=== PATIENT | female | born 1990 | race Caucasian/White ===

== ENCOUNTER 2016-03-19 13:02 | Emergency (ER) | payer OTHER, MEDICAID ==
[2016-03-19] MEDS ORDERED: HYDROCODONE/ACETAMINOPHEN 5-325 MG TABLET PO ONE (13:49)
--- NOTE | 2016-03-19 14:01 | ER Document Report ---
ED Medical Screen (RME) - General Stated Complaint: FALL BACK PAIN Mode of Arrival: Ambulatory Information source: Patient Notes: 25 y/o F presents to ED c/o lower back and left hip pain s/p fall. Denies loc, extremity paresthesias or weakness. I have greeted and performed a rapid initial assessment of this patient. A comprehensive ED assessment and evaluation of the patient, analysis of test results and completion of the medical decision making process will be conducted by additional ED providers. TRAVEL OUTSIDE OF THE [place] IN LAST 30 DAYS: No - Related Data Allergies/Adverse Reactions: No Known Allergies Allergy (Verified 08/12/15 15:44) Past Medical History - Social History Frequency of alcohol use: Social Drug Abuse: None Renal/ Medical History: Denies: Hx Peritoneal Dialysis Psychiatric Medical History: Reports: Hx Bipolar Disorder, Hx Depression, Hx Schizophrenia Past Surgical History: Reports: Hx Section, Hx Oral Surgery - wisdom teeth - Immunizations Hx Diphtheria, Pertussis, Tetanus Vaccination: Yes Physical Exam - Vital signs Vitals: Temp Pulse Resp BP Pulse Ox 98.0 F 89 17 116/69 100 03/19/16 13:27 03/19/16 13:27 03/19/16 13:27 03/19/16 13:27 03/19/16 13:27 - General General appearance: Appears well, Alert In distress: None Course - Vital Signs Vital signs: Temp Pulse Resp BP Pulse Ox 98.0 F 89 17 116/69 100 03/19/16 13:27 03/19/16 13:27 03/19/16 13:27 03/19/16 13:27 03/19/16 13:27
[2016-03-19 14:27] LABS: APPEARANCE,URINE SLIGHTLY-CLOUDY; BILIRUBIN,URINE NEGATIVE (NEGATIVE); GLUCOSE, URINE NEGATIVE (NEGATIVE); KETONES,URINE NEGATIVE (NEGATIVE); LEUKOCYTE ESTERASE,URINE NEGATIVE (NEGATIVE); NITRITE,URINE NEGATIVE (NEGATIVE); PROTEIN,URINE NEGATIVE (NEGATIVE); URINE SPECIFIC GRAVITY 1.018; UROBILINOGEN,URINE NEGATIVE mg/dL (<2.0)
--- NOTE | 2016-03-19 15:14 | ER Document Report ---
ED Fall - General Chief Complaint: Back Injury Stated Complaint: FALL BACK PAIN Time seen by provider: 15:10 Mode of Arrival: Ambulatory Information source: Patient Notes: 25-year-old female presents to ED for complain of low back pain and left hip pain and rib pain due to a fall last night. She states she fell off the third step of a ladder at work last night. TRAVEL OUTSIDE OF THE [place] IN LAST 30 DAYS: No - HPI Occurred: Yesterday Where: Work Context: Fell from height - Fell off third step of a ladder Associated symptoms: None Location of injury/pain: Back, Hip, Other - Left ribs Quality of pain: Sharp Severity: Severe Pain Level: 5 - Related data Allergies/Adverse Reactions: No Known Allergies Allergy (Verified 08/12/15 15:44) Past Medical History - General Information source: Patient Last Menstrual Period: IUD - Social History Smoking Status: Current Every Day Smoker Cigarette use (# per day): Yes - one third pack per day Chew tobacco use (# tins/day): No Smoking Education Provided: Yes - less than 1 minute Frequency of alcohol use: Social Drug Abuse: None 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 Lives with: Family Family History: CAD, COPD, CVA, DM, Hyperlipidemia, Hypertension, Other - Depression Patient has suicidal ideation: No Patient has homicidal ideation: No - Past Medical History Cardiac Medical History: Reports: None Pulmonary Medical History: Reports: Hx Bronchitis EENT Medical History: Reports: None Neurological Medical History: Reports: None Endocrine Medical History: Reports: None Renal/ Medical History: Reports: None Malignancy Medical History: Reports: None GI Medical History: Reports: None Musculoskeltal Medical History: Reports None Skin Medical History: Reports None Psychiatric Medical History: Reports: Hx Bipolar Disorder, Hx Depression, Hx Schizophrenia Traumatic Medical History: Reports: None Infectious Medical History: Reports: None Past Surgical History: Reports: Hx Section, Hx Oral Surgery - wisdom teeth - Immunizations Hx Diphtheria, Pertussis, Tetanus Vaccination: Yes Review of Systems - Review of Systems Constitutional: No symptoms reported EENT: No symptoms reported Cardiovascular: No symptoms reported Respiratory: Other - Left posterior lateral rib tenderness and pain with movement Gastrointestinal: No symptoms reported Genitourinary: No symptoms reported Female Genitourinary: No symptoms reported Musculoskeletal: Back pain - From [place] down bilateral, Muscle pain Skin: No symptoms reported Hematologic/Lymphatic: No symptoms reported Neurological/Psychological: No symptoms reported Physical Exam - Vital signs Vitals: Temp Pulse Resp BP Pulse Ox 98.0 F 89 17 116/69 100 03/19/16 13:27 03/19/16 13:27 03/19/16 13:27 03/19/16 13:27 03/19/16 13:27 Interpretation: Normal - General General appearance: Appears well, Alert - HEENT Head: Normocephalic, Atraumatic Eyes: Normal Pupils: PERRL - Respiratory Respiratory status: No respiratory distress Chest status: Tender - Left lateral posterior rib pain, Pain on movement, Pain with cough, Pain with deep breathing Breath sounds: Normal Chest palpation: Normal - Cardiovascular Rhythm: Regular Heart sounds: Normal auscultation Murmur: No - Abdominal Inspection: Normal Distension: No distension Bowel sounds: Normal Tenderness: Nontender Organomegaly: No organomegaly - Back Back: Normal, Tender, Vertebra tenderness - Tenderness across the back left and right and vertebral from [place] down. No: Deformity/step-off, CVA tenderness , Scars, Scoliosis, Wounds, Other - Extremities General upper extremity: Normal inspection, Nontender, Normal color, Normal ROM , Normal temperature General lower extremity: Normal inspection, Nontender, Normal color, Normal ROM , Normal temperature, Normal weight bearing. No: Katie's sign - Neurological Neuro grossly intact: Yes Cognition: Normal Orientation: AAOx4 Jt Coma Scale Eye Opening: Spontaneous Jt Coma Scale Verbal: Oriented [place] Coma Scale Motor: Obeys Commands [place] Coma Scale Total: 15 Speech: Normal Motor strength normal: LUE, RUE, LLE, RLE Sensory: Normal - Psychological Associated symptoms: Normal affect, Normal mood - Skin Skin Temperature: Warm Skin Moisture: Dry Skin Color: Normal Course - Re-evaluation Re-evalutation: 03/19/16 22:11 X-rays results discussed with patient and written reports given to patient. Rib contusion precautions discussed with patient and patient instructed on use of incentive spirometry. Patient instructed to follow-up with primary doctor. Patient able to walk freely in the room. - Vital Signs Vital signs: Temp Pulse Resp BP Pulse Ox 97 F L 70 16 118/68 98 03/19/16 17:45 03/19/16 17:45 03/19/16 17:45 03/19/16 17:45 03/19/16 17:45 - Laboratory Laboratory results interpreted by me: 03/19/16 14:00 Urine Blood SMALL H - Diagnostic Test Radiology reviewed: Image reviewed, Reports reviewed Discharge - Discharge Clinical Impression: fall at work, Upper back pain Rib contusion Qualifiers: Encounter type: initial encounter Laterality: left Qualified Code(s): S20.212A - Contusion of left front wall of thorax, initial encounter Lower back pain Qualifiers: Chronicity: acute Back pain laterality: left Sciatica presence: without sciatica Qualified Code(s): M54.5 - Low back pain Condition: Stable Disposition: HOME, SELF-CARE Instructions: Upper Back Strain ([facility]), Stretching Exercises for the Back ([facility]) , Exercise Program for the Shoulder ([facility]), Family Physicians / Practices Additional Instructions: Rib Contusion You have been diagnosed as having bruised ribs. It will usually take a few weeks for these injured ribs to heal. You should cough or take a deep breath at least every hour or two to prevent lung complications. You should not engage in any strenuous physical activity until released by your physician. The usual rule is "if it hurts, don' t do it." Return if you develop any of the following: (1) Fever or chills. (2) Persistent cough, coughing up blood, or shortness of breath. (3) Increasing pain. (4) Weakness, lightheadedness, or fainting. LOW BACK PAIN: Three out of every four people will have an episode of disabling back pain during their lifetime. Most commonly the pain is due to straining of the muscles and ligaments in the low back. Usual treatment includes: (1) Rest on a firm surface. Avoid lying on your stomach. (2) Ice pack the painful area. After a few days, gentle heat may be used intermittently to relax the area, or ice packs can be continued. (3) Medication may be needed -- muscle relaxers and antiinflammatory medicines are commonly used. (4) As the back improves, exercises are prescribed to strengthen the back and abdominal muscles. Your doctor will advise you on the proper care for your back at each stage in your recovery. You may be better in a few days -- or healing may take several weeks. If new symptoms of a "herniated disc" (radiation of pain, numbness, or tingling down the back of the leg or weakness in the leg) occur, you should be re-examined. Further testing may be necessary. Ibuprofen Ibuprofen is an excellent, safe drug for pain control. In addition, it has potent antiinflammatory effects which are beneficial, especially in the treatment of injuries, arthritis, or tendonitis. It's best to take ibuprofen with food. Persons with ulcer disease or allergy to aspirin should notify their physician of this before taking ibuprofen. Take the medication exactly as prescribed. Don't take additional doses unless instructed to do so by your doctor. If you develop wheezing, shortness of breath, hives, faintness, stomach pain, vomiting, or dark black stools, return for re-evaluation at once. ORAL NARCOTIC MEDICATION: You have been given a prescription for pain control. This medication is a narcotic. It's best taken with food, as nausea can result if taken on an empty stomach. Don't operate machinery or drive within six hours of taking this medication. Do not combine this medicine with alcohol, or with any medication which can cause sedation (such as cold tablets or sleeping pills) unless you get permission from the physician. Narcotics tend to cause constipation. If possible, drink plenty of fluids and eat a diet high in fiber and fruits. Please be aware that prescription narcotics also have the potential for abuse. People become addicted to these medications because of the general sense of wellbeing that they induce. This feeling along with a significant reduction in tension, anxiety, and aggression provides a stimulating seductive quality to these drugs. Once your pain is under control, we encourage you to discard your unused narcotics. MUSCLE RELAXERS: Muscle relaxing medications are usually prescribed for acute muscle spasm or injury to the neck and back. They are often combined with antiinflammatory pain medication for increased relief. You may stop the muscle relaxer when the pain and stiffness have improved. Start the medication again if spasms recur. Muscle relaxers may cause drowsiness, especially with the first dose. Do not operate machinery or drive while under the effects of the medication. Most muscle relaxers last up to 24 hours. Do not combine the medication with alcohol. ICE PACKS: Apply ice packs frequently against the painful area. Many different schedules are recommended, such as "20 minutes on, 20 minutes off" or "one hour ice, two hours rest." If you need to work, you may need to go longer between ice treatments. You should plan to have the area ice packed AT LEAST one fourth of the time. The ice should be applied over the wrap, tape, or splint, or over a layer of cloth -- not directly against the skin. Some ice bags have a built-in cloth and can be put directly on the skin. WARM PACKS: After approximately two days, apply gentle heat (such as a heating pad or hot water bottle) for about 20 to 30 minutes about every two hours -- at least four times daily. Warmth and elevation will help you make a more rapid recovery , and will ease the pain considerably. Do not use HOT heat, and never apply heat for longer than 30 minutes. The continuous heat can invisibly damage skin and muscles -- even when no burn is seen on the surface. Damaged muscles can make you MORE sore. FOLLOW-UP CARE: If you have been referred to a physician for follow-up care, call the physician s office for an appointment as you were instructed or within the next two days. If you experience worsening or a significant change in your symptoms, notify the physician immediately or return to the Emergency Department at any time for re-evaluation. Prescriptions: Hydrocodone/Acetaminophen [[place] 5-325 mg Tablet] 1 tab PO Q6HP PRN #10 tablet PRN Reason: Cyclobenzaprine HCl [Flexeril 5 mg Tablet] 5 mg PO TID #10 tablet Forms: Special Work Note, Smoking Cessation Education, Return to Work
[2016-03-19 17:49] VITALS: BP 118/68
== END 2016-03-19 17:46 | disposition home or self-care (01) ==
LOC: ER 13:02
DX: S20.212A Contusion of left front wall of thorax, initial encounter (principal); W11.XXXA Fall on and from ladder, initial encounter; Y99.0 Civilian activity done for income or pay; M54.89 Other dorsalgia; M54.5 Low back pain; R07.81 Pleurodynia; F17.210 Nicotine dependence, cigarettes, uncomplicated; Z97.5 Presence of (intrauterine) contraceptive device; Z71.6 Tobacco abuse counseling
CPT/HCPCS: 72110; 81001; 81025; 99283

== ENCOUNTER 2016-08-20 15:23 | Emergency (ER) | payer MEDICAID, OTHER ==
--- NOTE | 2016-08-20 16:50 | ER Document Report ---
ED Medical Screen (RME) - General Chief Complaint: Leg Swelling Stated Complaint: NUMBNESS IN LEGS Time Seen by Provider: 08/20/16 16:48 TRAVEL OUTSIDE OF THE [place] IN LAST 30 DAYS: No - HPI Notes: 08/20/16 16:49 Patient coming in with numbness tingling bilateral lower extremity swelling bilateral extremities but intermittent coloration of the toes and fingers over the last few weeks - Related Data Allergies/Adverse Reactions: No Known Allergies Allergy (Verified 08/12/15 15:44) Past Medical History Pulmonary Medical History: Reports: Hx Bronchitis Renal/ Medical History: Denies: Hx Peritoneal Dialysis Psychiatric Medical History: Reports: Hx Bipolar Disorder, Hx Depression, Hx Schizophrenia Past Surgical History: Reports: Hx Section, Hx Oral Surgery - wisdom teeth - Immunizations Hx Diphtheria, Pertussis, Tetanus Vaccination: Yes Review of Systems - Review of Systems Musculoskeletal: Leg swelling Physical Exam - Vital signs Vitals: Temp Pulse Resp BP Pulse Ox 98.6 F 98 20 129/66 H 100 08/20/16 15:34 08/20/16 15:34 08/20/16 15:34 08/20/16 15:34 08/20/16 15:34 - Respiratory Respiratory status: No respiratory distress Chest status: Nontender Breath sounds: Normal Chest palpation: Normal Course - Vital Signs Vital signs: Temp Pulse Resp BP Pulse Ox 98.6 F 98 20 129/66 H 100 08/20/16 15:34 08/20/16 15:34 08/20/16 15:34 08/20/16 15:34 08/20/16 15:34
[2016-08-20 16:59] LABS: ABSOLUTE BASOPHILS # (AUTO) 0.1 10^3/uL (0.0-0.2); ABSOLUTE EOSINOPHILS # (AUTO) 0.2 10^3/uL (0.0-0.6); ABSOLUTE LYMPHOCYTES (AUTO) 3.5 10^3/uL (0.5-4.7); ABSOLUTE MONOCYTES (AUTO) 0.4 10^3/uL (0.1-1.4); ABSOLUTE NEUT (AUTO) 4.4 10^3/uL (1.7-8.2); EOSINOPHILS % (AUTO) 2.1 % (0-6); HEMATOCRIT 34.1 % (36.0-47.0); HEMOGLOBIN 10.8 g/dL (12.0-15.5); HGB HCT DIFFERENCE -1.7; LYMPHOCYTES % (AUTO) 40.7 % (13-45); MEAN CORPUSCULAR HEMOGLOBIN 21.8 pg (27.0-33.4); MEAN CORPUSCULAR HGB CONC 31.6 g/dL (32.0-36.0); MEAN CORPUSCULAR VOLUME 69 fl (80-97); RED BLOOD COUNT 4.95 10^6/uL (3.72-5.28); RED CELL DISTRIBUTION WIDTH 17.6 % (11.5-14.0); SEGMENTED NEUTROPHILS % (AUTO) 51.2 % (42-78); WHITE BLOOD COUNT 8.6 10^3/uL (4.0-10.5)
[2016-08-20 17:23] LABS: ALANINE AMINOTRANSFERASE 28 U/L (9-52); ALBUMIN 4.2 g/dL (3.5-5.0); ALKALINE PHOSPHATASE 81 U/L (38-126); ANION GAP 10 (5-19); ASPARTATE AMINO TRANSFERASE 14 U/L (14-36); BILIRUBIN,DIRECT 0.3 mg/dL (0.0-0.4); BILIRUBIN,TOTAL 0.6 mg/dL (0.2-1.3); BLOOD UREA NITROGEN 8 mg/dL (7-20); CALCIUM 9.8 mg/dL (8.4-10.2); CARBON DIOXIDE 24 mmol/L (22-30); CHLORIDE 109 mmol/L (98-107); GLUCOSE 101 mg/dL (75-110); LIPASE 67.3 U/L (23-300); POTASSIUM 3.9 mmol/L (3.6-5.0); SODIUM 143.1 mmol/L (137-145); TOTAL PROTEIN 7.8 g/dL (6.3-8.2)
[2016-08-20] MEDS ORDERED: OXYCODONE-ACETAMINOPHEN 5-325 MG TABLET PO ONE (17:34)
[2016-08-20] MEDS ORDERED: KETOROLAC TROMETHAMINE 60 MG/2 ML SDV IM ONE (17:34)
--- NOTE | 2016-08-20 17:40 | ER Document Report ---
ED General - General Chief Complaint: Leg Swelling Stated Complaint: NUMBNESS IN LEGS Time Seen by Provider: 08/20/16 16:48 Mode of Arrival: Ambulatory Information source: Patient Notes: This is a 25-year-old female history of bipolar affective disorder and anxiety who presents to the emergency room with back pain and spasms with lower extremity pain and burning. She states she has had back pain since giving a year ago but the burning started yesterday. She recently started on the new medicines for her bipolar. Systems: Patient denies any fever, saddle anesthesia, loss of bowel or bladder function, she denies urine retention. TRAVEL OUTSIDE OF THE [place] IN LAST 30 DAYS: No - HPI Onset: Last week Onset/Duration: Gradual Quality of pain: Dull Severity: Moderate Pain Level: 2 Associated symptoms: denies: Chills, Fever, Shortness of breath Exacerbated by: Movement Relieved by: Standing Similar symptoms previously: Yes Recently seen / treated by doctor: No - Related Data Allergies/Adverse Reactions: No Known Allergies Allergy (Verified 08/12/15 15:44) Past Medical History - General Information source: Patient - Social History Smoking Status: Current Every Day Smoker Cigarette use (# per day): Yes - Half pack per day Chew tobacco use (# tins/day): No Frequency of alcohol use: None Drug Abuse: None Lives with: Family Family History: CAD, COPD, CVA, DM, Hyperlipidemia, Hypertension, Other - Depression Patient has suicidal ideation: No Patient has homicidal ideation: No Pulmonary Medical History: Reports: Hx Bronchitis Renal/ Medical History: Denies: Hx Peritoneal Dialysis Psychiatric Medical History: Reports: Hx Bipolar Disorder, Hx Depression, Hx Schizophrenia Past Surgical History: Reports: Hx Section, Hx Oral Surgery - wisdom teeth - Immunizations Hx Diphtheria, Pertussis, Tetanus Vaccination: Yes Review of Systems - Review of Systems Constitutional: denies: Chills, Fever EENT: No symptoms reported Cardiovascular: No symptoms reported Gastrointestinal: No symptoms reported Genitourinary: No symptoms reported Female Genitourinary: No symptoms reported Musculoskeletal: See HPI Skin: No symptoms reported Hematologic/Lymphatic: No symptoms reported Neurological/Psychological: See HPI Physical Exam - Vital signs Vitals: Temp Pulse Resp BP Pulse Ox 98.6 F 98 20 129/66 H 100 08/20/16 15:34 08/20/16 15:34 08/20/16 15:34 08/20/16 15:34 08/20/16 15:34 Notes: Physical exam: GENERAL:-year-old female, alert and oriented 3, no acute distress HEAD: Atraumatic, normocephalic. EYES: Pupils equal round and reactive to light, extraocular movements intact, sclera anicteric, conjunctiva are normal. ENT: TMs normal, nares patent, oropharynx clear without exudates. Moist mucous membranes. NECK: Normal range of motion, supple without lymphadenopathy or JVD. LUNGS: Breath sounds clear to auscultation bilaterally and equal. No wheezes rales or rhonchi. HEART: Regular rate and rhythm without murmurs, rubs or gallops. ABDOMEN: Soft, normoactive bowel sounds. No tenderness to palpation. No guarding, no rebound. No masses appreciated. EXTREMITIES: Normal range of motion, no pitting or edema. No clubbing or cyanosis. Pulses 2+. Good femoral pulses. Distal extremities are pink with good capillary refill. She has tenderness to palpation of the feet NEUROLOGICAL: Cranial nerves II through XII grossly intact. Normal speech, lower extremities is strong and equal normal gait. PSYCH: Normal mood, normal affect. SKIN: Warm, Dry, normal turgor, no rashes or lesions noted. Bedside Ultrasound: Aorta Normal, good femoral blood flow Course - Vital Signs Vital signs: Temp Pulse Resp BP Pulse Ox 98.6 F 91 15 133/72 H 100 08/20/16 15:34 08/20/16 19:05 08/20/16 19:05 08/20/16 19:05 08/20/16 19:05 - Laboratory Result Diagrams: 08/20/16 16:54 08/20/16 16:54 Laboratory results interpreted by me: 08/20/16 08/20/16 16:54 16:54 Hgb 10.8 L Hct 34.1 L MCV 69 L MCH 21.8 L MCHC 31.6 L RDW 17.6 H Chloride 109 H - Diagnostic Test Radiology reviewed: Image reviewed, Reports reviewed - Spine shows no obvious bony injury Discharge - Discharge Clinical Impression: neuropathy Condition: Stable Disposition: HOME, SELF-CARE Instructions: Neuropathy ([facility]) Additional Instructions: Recommendations: Get a follow-up with Dr. Wolff this week. , Drink plenty of fluids, keep feet elevated when not up on your feet. Take ibuprofen every 6 hours for the next few days. Take the pain medicine as needed. Gabapentin is sometimes very useful for neuropathy. To the emergency room for worsening numbness or pain. Prescriptions: Gabapentin 100 mg PO Q8 #30 capsule Hydrocodone/Acetaminophen [[place] 5-325 Tablet] 1 each PO Q6H PRN #14 tablet PRN Reason: Forms: Return to Work Referrals: BENEDICTO WOLFF MD [Primary Care Provider] - Follow up in 3-5 days
--- NOTE | 2016-08-20 18:31 | RADIOLOGY REPORT (SQ) ---
EXAM DESCRIPTION: L SPINE WHOLE COMPLETED DATE/TIME: 08/20/2016 6:01 pm REASON FOR STUDY: back pain COMPARISON: 03/19/2016 NUMBER OF VIEWS: Five views including obliques. TECHNIQUE: AP, lateral, oblique, and sacral radiographic images acquired of the lumbar spine. LIMITATIONS: None. FINDINGS: MINERALIZATION: Normal. SEGMENTATION: Transitional vertebra. ALIGNMENT: Normal. VERTEBRAE: Maintained height. No fracture or worrisome bone lesion. DISCS: Preserved height. No significant osteophytes or end plate irregularity. POSTERIOR ELEMENTS: Pedicles and facets are intact. No pars defect or posterior arch defects. HARDWARE: None in the spine. PARASPINAL SOFT TISSUES: Normal. PELVIS: Intact as visualized. No fractures or worrisome bone lesions. SI joints intact. OTHER: No other significant finding. IMPRESSION: NORMAL 5 VIEW LUMBAR SPINE. TECHNICAL DOCUMENTATION: JOB ID: [id number] [employer]- All Rights Reserved
[2016-08-20] MEDS ORDERED: HYDROCODONE/ACETAMINOPHEN 5-325 MG 6 TAB/DSPK PO PRN (18:52)
[2016-08-20 19:14] VITALS: BP 133/72
== END 2016-08-20 19:11 | disposition home or self-care (01) ==
LOC: ER 15:23
DX: G62.9 Polyneuropathy, unspecified (principal); M54.9 Dorsalgia, unspecified; R25.2 Cramp and spasm; R20.0 Anesthesia of skin; M79.606 Pain in leg, unspecified; F31.9 Bipolar disorder, unspecified; F17.210 Nicotine dependence, cigarettes, uncomplicated
CPT/HCPCS: 99283; 96372; 36415; 83690; 85025; 80053; 72110; J1885

== ENCOUNTER 2016-08-29 23:29 | Emergency (ER) | payer MEDICAID | END 2016-08-30 00:30 | disposition left against medical advice (07) | LOC: ER 23:29 | DX: Z53.21 Procedure and treatment not carried out due to patient leaving prior to being seen by health care provider (principal) ==

== ENCOUNTER 2016-08-31 17:35 | Emergency (ER) | payer MEDICAID ==
--- NOTE | 2016-08-31 18:36 | ER Document Report ---
ED Neuro Symptoms/Deficit - General Chief Complaint: Numbness Stated Complaint: LEG PAIN/SWELLING/NUMBNESS Time Seen by Provider: 08/31/16 18:27 Notes: This patient has been experiencing numbness and pain in her fingers and hands and in both lower legs from the knees down for about a month. She seen her private doctor, Dr. Delgado, and he has scheduled her for an appointment to see a neurologist on Sunday. Patient is choosing to use a cane to walk because she says her legs feel weak and wobbly, like Jell-O. Patient does not look ill. TRAVEL OUTSIDE OF THE [place] IN LAST 30 DAYS: No - Related Data Allergies/Adverse Reactions: No Known Allergies Allergy (Verified 08/31/16 17:38) Past Medical History - Social History Family History: CAD, COPD, CVA, DM, Hyperlipidemia, Hypertension, Other - Depression Patient has suicidal ideation: No Patient has homicidal ideation: No Pulmonary Medical History: Reports: Hx Bronchitis Renal/ Medical History: Denies: Hx Peritoneal Dialysis Psychiatric Medical History: Reports: Hx Bipolar Disorder, Hx Depression, Hx Schizophrenia Past Surgical History: Reports: Hx Section, Hx Oral Surgery - wisdom teeth - Immunizations Hx Diphtheria, Pertussis, Tetanus Vaccination: Yes Physical Exam - Vital signs Vitals: Temp Pulse Resp BP Pulse Ox 98.8 F 107 H 14 140/88 H 98 08/31/16 17:39 08/31/16 17:39 08/31/16 17:39 08/31/16 17:39 08/31/16 17:39 Course - Vital Signs Vital signs: Temp Pulse Resp BP Pulse Ox 98.8 F 107 H 14 140/88 H 98 08/31/16 17:39 08/31/16 17:39 08/31/16 17:39 08/31/16 17:39 08/31/16 17:39
[2016-08-31 19:13] LABS: ABSOLUTE BASOPHILS # (AUTO) 0.1 10^3/uL (0.0-0.2); ABSOLUTE EOSINOPHILS # (AUTO) 0.2 10^3/uL (0.0-0.6); ABSOLUTE LYMPHOCYTES (AUTO) 2.9 10^3/uL (0.5-4.7); ABSOLUTE MONOCYTES (AUTO) 0.5 10^3/uL (0.1-1.4); BASOPHILS % (AUTO) 0.7 % (0-2); HEMATOCRIT 35.1 % (36.0-47.0); HEMOGLOBIN 10.6 g/dL (12.0-15.5); HGB HCT DIFFERENCE -3.3; LYMPHOCYTES % (AUTO) 33.6 % (13-45); MEAN CORPUSCULAR HEMOGLOBIN 21.6 pg (27.0-33.4); MEAN CORPUSCULAR HGB CONC 30.3 g/dL (32.0-36.0); MEAN CORPUSCULAR VOLUME 72 fl (80-97); MONOCYTES % (AUTO) 5.9 % (3-13); RED BLOOD COUNT 4.91 10^6/uL (3.72-5.28); RED CELL DISTRIBUTION WIDTH 17.6 % (11.5-14.0); SEGMENTED NEUTROPHILS % (AUTO) 57.8 % (42-78); WHITE BLOOD COUNT 8.7 10^3/uL (4.0-10.5)
[2016-08-31 19:32] LABS: ALANINE AMINOTRANSFERASE 27 U/L (9-52); ALKALINE PHOSPHATASE 74 U/L (38-126); ANION GAP 12 (5-19); ASPARTATE AMINO TRANSFERASE 17 U/L (14-36); BILIRUBIN,DIRECT 0.4 mg/dL (0.0-0.4); BILIRUBIN,TOTAL 0.5 mg/dL (0.2-1.3); BLOOD UREA NITROGEN 8 mg/dL (7-20); CARBON DIOXIDE 22 mmol/L (22-30); CHLORIDE 110 mmol/L (98-107); CREATININE RESULT 0.68 mg/dL (0.52-1.25); GLUCOSE 86 mg/dL (75-110); POTASSIUM 4.1 mmol/L (3.6-5.0); SODIUM 144.3 mmol/L (137-145); TOTAL PROTEIN 7.2 g/dL (6.3-8.2)
[2016-08-31 19:35] LABS: APPEARANCE,URINE TURBID; BILIRUBIN,URINE NEGATIVE (NEGATIVE); GLUCOSE, URINE NEGATIVE (NEGATIVE); KETONES,URINE NEGATIVE (NEGATIVE); LEUKOCYTE ESTERASE,URINE SMALL (NEGATIVE); NITRITE,URINE NEGATIVE (NEGATIVE); PROTEIN,URINE 30 mg/dL (NEGATIVE); URINE SPECIFIC GRAVITY 1.032; UROBILINOGEN,URINE NEGATIVE mg/dL (<2.0)
--- NOTE | 2016-08-31 22:13 | ER Document Report ---
ED General - General Mode of Arrival: Ambulatory Information source: Patient TRAVEL OUTSIDE OF THE [place] IN LAST 30 DAYS: No - HPI Onset: Other - Refer to HPI notes Similar symptoms previously: Yes Recently seen / treated by doctor: Yes <ANNI ARMSTRONG - Last Filed: 08/31/16 22:46> <RYLEY JI - Last Filed: 08/31/16 23:26> - General Chief Complaint: Numbness Stated Complaint: LEG PAIN/SWELLING/NUMBNESS Time Seen by Provider: 08/31/16 18:27 Notes: Patient is a 25 year old female presenting to the emergency department for numbness and tingling in her lower and upper extremities. Patient states this has been present for about 1 month. Patient has been evaluated for this at [facility] in the past and was recently started on 100 mg gabapentin on 08/20/2016; patient followed up with her primary care physician who prescribed her 300 mg gabapentin x3 per day. Patient has been on this dose for about 1 week. Patient also has a history of anxiety, bipolar disorder, and she smokes cigarettes. Patient has an appointment with neurology on Sunday. Patient has no known allergies. (ANNI ARMSTRONG) - Related Data Allergies/Adverse Reactions: No Known Allergies Allergy (Verified 08/31/16 17:38) Past Medical History - General Information source: Patient - Social History Smoking Status: Current Every Day Smoker Chew tobacco use (# tins/day): No Frequency of alcohol use: Occasional Drug Abuse: Marijuana Family History: CAD, COPD, CVA, DM, Hyperlipidemia, Hypertension, Other - Depression Patient has suicidal ideation: No Patient has homicidal ideation: No Pulmonary Medical History: Reports: Hx Bronchitis Psychiatric Medical History: Reports: Hx Anxiety, Hx Bipolar Disorder, Hx Depression, Hx Schizophrenia Past Surgical History: Reports: Hx Section - x1, Hx Oral Surgery - wisdom teeth - Immunizations Hx Diphtheria, Pertussis, Tetanus Vaccination: Yes <ANNI ARMSTRONG - Last Filed: 08/31/16 22:46> Review of Systems - Review of Systems Constitutional: No symptoms reported EENT: No symptoms reported Cardiovascular: No symptoms reported Respiratory: No symptoms reported Gastrointestinal: No symptoms reported Genitourinary: No symptoms reported Female Genitourinary: No symptoms reported Musculoskeletal: No symptoms reported Skin: No symptoms reported Hematologic/Lymphatic: No symptoms reported Neurological/Psychological: See HPI, Numbness, Tingling -: Yes All other systems reviewed and negative <ANNI ARMSTRONG - Last Filed: 08/31/16 22:46> Physical Exam - Vital signs Interpretation: Normal <ANNI ARMSTRONG - Last Filed: 08/31/16 22:46> <RYLEY JI - Last Filed: 08/31/16 23:26> - Vital signs Vitals: Temp Pulse Resp BP Pulse Ox 98.8 F 107 H 14 140/88 H 98 08/31/16 17:39 08/31/16 17:39 08/31/16 17:39 08/31/16 17:39 08/31/16 17:39 - Notes Notes: GENERAL: Alert, interacts well. No acute distress. HEAD: Normocephalic, atraumatic. EYES: Pupils equal, round, and reactive to light. Extraocular movements intact. ENT: Oral mucosa moist, tongue midline. NECK: Full range of motion. Supple. Trachea midline. LUNGS: Clear to auscultation bilaterally, no wheezes, rales, or rhonchi. No respiratory distress. HEART: Regular rate and rhythm. No murmurs, gallops, or rubs. ABDOMEN: Soft, non-tender. Non-distended. Bowel sounds present in all 4 quadrants. EXTREMITIES: Moves all 4 extremities spontaneously. No edema. NEUROLOGICAL: Alert and oriented x3. Normal speech. PSYCH: Normal affect, normal mood. SKIN: Warm, dry, normal turgor. No rashes or lesions noted. (ANNI ARMSTRONG) Course - Laboratory Result Diagrams: 08/31/16 18:45 08/31/16 18:45 <JOSE ARMSTRONGINE - Last Filed: 08/31/16 22:46> - Laboratory Result Diagrams: 08/31/16 18:45 08/31/16 18:45 <RYLEY JI - Last Filed: 08/31/16 23:26> - Re-evaluation Re-evalutation: 08/31/16 23:22 First clean-catch urine had 58 epithelial cells, there were WBCs with clumps. This was repeated as the cath urine which is clean with no suggestion of infection. (RYLEY JI) - Vital Signs Vital signs: Temp Pulse Resp BP Pulse Ox 98.8 F 99 20 119/79 99 08/31/16 17:39 08/31/16 21:01 08/31/16 21:01 08/31/16 21:01 08/31/16 21:01 - Laboratory Laboratory results interpreted by me: 08/31/16 08/31/16 08/31/16 18:45 18:45 18:45 Hgb 10.6 L Hct 35.1 L MCV 72 L MCH 21.6 L MCHC 30.3 L RDW 17.6 H Chloride 110 H Urine Protein 30 H Urine Blood SMALL H Ur Leukocyte Esterase SMALL H 08/31/16 22:45 Hgb Hct MCV MCH MCHC RDW Chloride Urine Protein Urine Blood SMALL H Ur Leukocyte Esterase Discharge <ANNI ARMSTRONG - Last Filed: 08/31/16 22:46> <RYLEY JI - Last Filed: 08/31/16 23:26> - Discharge Clinical Impression: Paresthesias Condition: Stable Disposition: HOME, SELF-CARE Additional Instructions: Increase your gabapentin to 300 mg 4 times daily for the next week. Follow-up with Dr. Wolff tomorrow for any pain medication prescriptions you might need. Be sure to keep your appointment with the neurologist next week. Referrals: BENEDICTO WOLFF MD [Primary Care Provider] - Follow up tomorrow Scribe Attestation: 08/31/16 23:26 I personally performed the services described in the documentation, reviewed and edited the documentation which was dictated to the scribe in my presence, and it accurately records my words and actions. (RYLEY JI) Scribe Documentation - Scribe Written by Dejuan:: Dejuan Castellano 08/31/2016 22:55 acting as scribe for :: Daniel <ANNI ARMSTRONG - Last Filed: 08/31/16 22:46>
[2016-08-31 23:03] LABS: APPEARANCE,URINE CLEAR; BILIRUBIN,URINE NEGATIVE (NEGATIVE); GLUCOSE, URINE NEGATIVE (NEGATIVE); KETONES,URINE NEGATIVE (NEGATIVE); LEUKOCYTE ESTERASE,URINE NEGATIVE (NEGATIVE); NITRITE,URINE NEGATIVE (NEGATIVE); PROTEIN,URINE NEGATIVE (NEGATIVE); URINE SPECIFIC GRAVITY 1.028; UROBILINOGEN,URINE NEGATIVE mg/dL (<2.0)
[2016-08-31] MEDS ORDERED: HYDROCODONE/ACETAMINOPHEN 5-325 MG 6 TAB/DSPK PO PRN (23:27)
[2016-08-31 23:51] VITALS: BP 127/69
== END 2016-08-31 23:51 | disposition home or self-care (01) ==
LOC: ER 17:35
DX: R20.0 Anesthesia of skin (principal); M79.606 Pain in leg, unspecified; M79.89 Other specified soft tissue disorders; F41.9 Anxiety disorder, unspecified; F31.9 Bipolar disorder, unspecified; F17.210 Nicotine dependence, cigarettes, uncomplicated
CPT/HCPCS: 36415; 51701; 80053; 81001; 84703; 85025; 99284

== ENCOUNTER → 2016-09-05 | Outpatient (CLI) | payer MEDICAID ==
[2016-09-05 11:15] LABS: HEMATOCRIT 34.6 % (36.0-47.0); HGB HCT DIFFERENCE -1.6; MEAN CORPUSCULAR HEMOGLOBIN 22.2 pg (27.0-33.4); MEAN CORPUSCULAR HGB CONC 31.9 g/dL (32.0-36.0); MEAN CORPUSCULAR VOLUME 70 fl (80-97); RED BLOOD COUNT 4.96 10^6/uL (3.72-5.28); RED CELL DISTRIBUTION WIDTH 17.4 % (11.5-14.0)
[2016-09-05 11:36] LABS: ALANINE AMINOTRANSFERASE 21 U/L (9-52); ALBUMIN 4.4 g/dL (3.5-5.0); ALKALINE PHOSPHATASE 74 U/L (38-126); ANION GAP 13 (5-19); ASPARTATE AMINO TRANSFERASE 15 U/L (14-36); BILIRUBIN,DIRECT 0.3 mg/dL (0.0-0.4); BILIRUBIN,TOTAL 0.6 mg/dL (0.2-1.3); BLOOD UREA NITROGEN 9 mg/dL (7-20); CALCIUM 9.1 mg/dL (8.4-10.2); CARBON DIOXIDE 21 mmol/L (22-30); CHLORIDE 107 mmol/L (98-107); CREATININE RESULT 0.69 mg/dL (0.52-1.25); GLUCOSE 87 mg/dL (75-110); POTASSIUM 4.1 mmol/L (3.6-5.0); TOTAL PROTEIN 7.6 g/dL (6.3-8.2)
[2016-09-05 11:45] LABS: FREE T3 3.98 pg/mL (2.77-5.27)
[2016-09-05 11:59] LABS: THYROID STIMULATING HORMONE 1.2 uIU/mL (0.47-4.68)
--- NOTE | 2016-09-13 14:16 | ER Document Report ---
ED Medical Screen (RME) - General Notes: This patient has been experiencing numbness and pain in her fingers and hands and in both lower legs from the knees down for about a month. She seen her private doctor, Dr. Delgado, and he has scheduled her for an appointment to see a neurologist on Sunday. Patient is choosing to use a cane to walk because she says her legs feel weak and wobbly, like Jell-O. Patient does not look ill. TRAVEL OUTSIDE OF THE [place] IN LAST 30 DAYS: No - Related Data Allergies/Adverse Reactions: No Known Allergies Allergy (Verified 08/31/16 17:38) Past Medical History Pulmonary Medical History: Reports: Hx Bronchitis Renal/ Medical History: Denies: Hx Peritoneal Dialysis Psychiatric Medical History: Reports: Hx Anxiety, Hx Bipolar Disorder, Hx Depression, Hx Schizophrenia Past Surgical History: Reports: Hx Section - x1, Hx Oral Surgery - wisdom teeth - Immunizations Hx Diphtheria, Pertussis, Tetanus Vaccination: Yes Course - Laboratory Result Diagrams: 09/05/16 10:30 09/05/16 10:30 Laboratory results interpreted by me: 09/05/16 09/05/16 10:30 10:30 Hgb 11.0 L Hct 34.6 L MCV 70 L MCH 22.2 L MCHC 31.9 L RDW 17.4 H Carbon Dioxide 21 L
== END ==
LOC: OD 10:06
PROVIDERS: ATTEND Specialist
DX: G62.9 Polyneuropathy, unspecified (principal); R60.1 Generalized edema
CPT/HCPCS: 36415; 80053; 84439; 84443; 84481; 85027

== ENCOUNTER 2016-09-18 14:11 | Emergency (ER) | payer MEDICAID ==
--- NOTE | 2016-09-18 15:03 | ER Document Report ---
ED Medical Screen (RME) - General Chief Complaint: Swelling of Lower Extremity Stated Complaint: BILATERAL LEG PAIN Time Seen by Provider: 09/18/16 14:59 Mode of Arrival: Wheelchair Information source: Patient TRAVEL OUTSIDE OF THE [place] IN LAST 30 DAYS: No - HPI Patient complains to provider of: bilateral leg pain Onset: Other - pt. states she has had the feeling of "knives sticking into her legs " for the past 3 months - Related Data Allergies/Adverse Reactions: No Known Allergies Allergy (Verified 09/18/16 14:19) Past Medical History - Social History Chew tobacco use (# tins/day): No Pulmonary Medical History: Reports: Hx Bronchitis Renal/ Medical History: Denies: Hx Peritoneal Dialysis Psychiatric Medical History: Reports: Hx Anxiety, Hx Bipolar Disorder, Hx Depression, Hx Schizophrenia Past Surgical History: Reports: Hx Section - x1, Hx Oral Surgery - wisdom teeth - Immunizations Hx Diphtheria, Pertussis, Tetanus Vaccination: Yes Physical Exam - Vital signs Vitals: Temp Pulse Resp BP Pulse Ox 98.2 F 101 H 16 132/65 H 100 09/18/16 14:21 09/18/16 14:21 09/18/16 14:21 09/18/16 14:21 09/18/16 14:21 Course - Vital Signs Vital signs: Temp Pulse Resp BP Pulse Ox 98.2 F 101 H 16 132/65 H 100 09/18/16 14:21 09/18/16 14:21 09/18/16 14:21 09/18/16 14:21 09/18/16 14:21
[2016-09-18 15:33] LABS: ABSOLUTE BASOPHILS # (AUTO) 0.1 10^3/uL (0.0-0.2); ABSOLUTE EOSINOPHILS # (AUTO) 0.3 10^3/uL (0.0-0.6); ABSOLUTE LYMPHOCYTES (AUTO) 2.2 10^3/uL (0.5-4.7); ABSOLUTE MONOCYTES (AUTO) 0.6 10^3/uL (0.1-1.4); ABSOLUTE NEUT (AUTO) 5.4 10^3/uL (1.7-8.2); BASOPHILS % (AUTO) 0.9 % (0-2); HEMATOCRIT 34.6 % (36.0-47.0); HEMOGLOBIN 11.1 g/dL (12.0-15.5); HGB HCT DIFFERENCE -1.3; LYMPHOCYTES % (AUTO) 26.2 % (13-45); MEAN CORPUSCULAR HEMOGLOBIN 22.8 pg (27.0-33.4); MEAN CORPUSCULAR HGB CONC 32.1 g/dL (32.0-36.0); MEAN CORPUSCULAR VOLUME 71 fl (80-97); MONOCYTES % (AUTO) 7.1 % (3-13); RED BLOOD COUNT 4.87 10^6/uL (3.72-5.28); RED CELL DISTRIBUTION WIDTH 17.3 % (11.5-14.0); SEGMENTED NEUTROPHILS % (AUTO) 62.8 % (42-78); WHITE BLOOD COUNT 8.5 10^3/uL (4.0-10.5)
[2016-09-18 15:51] LABS: ALANINE AMINOTRANSFERASE 23 U/L (9-52); ALKALINE PHOSPHATASE 90 U/L (38-126); ANION GAP 12 (5-19); ASPARTATE AMINO TRANSFERASE 13 U/L (14-36); BILIRUBIN,DIRECT 0.3 mg/dL (0.0-0.4); BILIRUBIN,TOTAL 0.4 mg/dL (0.2-1.3); BLOOD UREA NITROGEN 9 mg/dL (7-20); CARBON DIOXIDE 21 mmol/L (22-30); CHLORIDE 110 mmol/L (98-107); CREATININE RESULT 0.67 mg/dL (0.52-1.25); GLUCOSE 93 mg/dL (75-110); POTASSIUM 4.1 mmol/L (3.6-5.0); SODIUM 142.6 mmol/L (137-145); TOTAL PROTEIN 7.3 g/dL (6.3-8.2)
[2016-09-18 16:08] LABS: APPEARANCE,URINE SLIGHTLY-CLOUDY; BILIRUBIN,URINE NEGATIVE (NEGATIVE); GLUCOSE, URINE NEGATIVE (NEGATIVE); KETONES,URINE NEGATIVE (NEGATIVE); LEUKOCYTE ESTERASE,URINE NEGATIVE (NEGATIVE); NITRITE,URINE NEGATIVE (NEGATIVE); PROTEIN,URINE NEGATIVE (NEGATIVE); URINE SPECIFIC GRAVITY 1.027; UROBILINOGEN,URINE NEGATIVE mg/dL (<2.0)
[2016-09-18] MEDS ORDERED: METHYLPREDNISOLONE INJ 125 MG/2 ML SDV IM ONE (16:52)
--- NOTE | 2016-09-18 17:49 | ER Document Report ---
ED General - General Chief Complaint: Swelling of Lower Extremity Stated Complaint: BILATERAL LEG PAIN Time Seen by Provider: 09/18/16 14:59 Mode of Arrival: Wheelchair Notes: Patient is here complaining of pain and swelling of both legs. Says that the swelling and pain makes it difficult for her to walk. Says that she has seen her primary care doctor, Dr. Wolff, and he referred her to a neurologist (Dr. Aragon). Neither of them can find anything wrong with her legs. This is her fifth visit to this emergency department in the past month for numbness or pain in her legs. She is also been seen here for psychiatric evaluation. Denies running any fevers. No known injury to either leg. Denies being on any current medications. TRAVEL OUTSIDE OF THE [place] IN LAST 30 DAYS: No - Related Data Allergies/Adverse Reactions: No Known Allergies Allergy (Verified 09/18/16 14:19) Past Medical History - General Information source: Patient - Social History Smoking Status: Current Every Day Smoker Chew tobacco use (# tins/day): No Family History: CAD, COPD, CVA, DM, Hyperlipidemia, Hypertension, Other - Depression Pulmonary Medical History: Reports: Hx Bronchitis Psychiatric Medical History: Reports: Hx Anxiety, Hx Bipolar Disorder, Hx Depression, Hx Schizophrenia Past Surgical History: Reports: Hx Section - x1, Hx Oral Surgery - wisdom teeth - Immunizations Hx Diphtheria, Pertussis, Tetanus Vaccination: Yes Review of Systems - Review of Systems Notes: REVIEW OF SYSTEMS: CONSTITUTIONAL : Denies fever. EENT: Denies eye, ear, nose or mouth or throat pain or other symptoms. CARDIOVASCULAR: Denies chest pain. RESPIRATORY: Denies cough, chest congestion, or shortness of breath. GASTROINTESTINAL: Denies abdominal pain or nausea, vomiting, or diarrhea. GENITOURINARY: Denies difficulty or painful urinating, urinary frequency, blood in urine. MUSCULOSKELETAL: See HPI. SKIN: Denies rash or skin lesions. NEUROLOGICAL: Denies LOC or altered mental status. Denies headache. Denies sensory loss or motor deficits. ALL OTHER SYSTEMS REVIEWED AND NEGATIVE. Physical Exam - Vital signs Vitals: Temp Pulse Resp BP Pulse Ox 98.2 F 101 H 16 132/65 H 100 09/18/16 14:21 09/18/16 14:21 09/18/16 14:21 09/18/16 14:21 09/18/16 14:21 Interpretation: Normal - Notes Notes: PHYSICAL EXAMINATION: GENERAL: Well-appearing, in no acute distress. Appears to be in pain to move her legs to get up on the stretcher. Afebrile. HEAD: Atraumatic, normocephalic. EYES: Pupils equal round and reactive to light, extraocular movements intact. NECK: Normal range of motion, supple. LUNGS: Breath sounds clear and equal bilaterally. HEART: Regular rate and rhythm without murmurs. ABDOMEN: Soft, nontender. No guarding or rebound. BACK: No tenderness throughout entire back. EXTREMITIES: Normal range of motion without pain. Negative Homans bilaterally. NEUROLOGICAL: Normal speech, normal gait. Normal sensory, motor, and reflex exams. Awake, alert, and oriented x3. Cranial nerves normal. PSYCH: Normal mood, normal affect. Anxious. SKIN: Warm, dry, no rashes. Course - Re-evaluation Re-evalutation: 09/18/16 20:23 I advised the patient that I can think of nothing further to do for her leg pains. Her workup here this evening is all normal. It has been that way on all of her previous visits, as well. I have advised her to follow-up with her primary care provider. - Vital Signs Vital signs: Temp Pulse Resp BP Pulse Ox 99.0 F 86 16 118/68 98 09/18/16 18:07 09/18/16 18:07 09/18/16 18:07 09/18/16 18:07 09/18/16 18:07 - Laboratory Result Diagrams: 09/18/16 15:21 09/18/16 15:21 Laboratory results interpreted by me: 09/18/16 09/18/16 09/18/16 15:21 15:21 15:21 Hgb 11.1 L Hct 34.6 L MCV 71 L MCH 22.8 L RDW 17.3 H Chloride 110 H Carbon Dioxide 21 L AST 13 L Urine Blood MODERATE H Discharge - Discharge Clinical Impression: Bilateral leg pain Condition: Stable Disposition: HOME, SELF-CARE Additional Instructions: Leg Pain, Nonspecific We did not find an obvious cause for your leg pain. There's no sign of blood clot, infection, or other serious disease. Possible causes of vague leg pain include muscle or joint inflammation, disc disease in the lower back, pressure on the nerves in the back, or reduced blood flow through the arteries of the leg. Rest the leg. Pain can be eased with an antiinflammatory pain medicine such as ibuprofen. If the pain involves a small area, a heating pad might help. Call the doctor or return if the leg becomes swollen, weak, discolored, or increasingly painful, or if you develop any other significant change in your health. NORMAL EXAM AND WORKUP: At this time, your examination and workup show no significant abnormality. No significant abnormal physical findings were noted. All laboratory, EKG, and imaging (x-ray, CT scans, ultrasound) studies that were ordered show no significant abnormality. Although your examination and all studies that were ordered showed no significant abnormal finding, there are no examinations and no studies that are 100% accurate. There is always the possibility that some abnormality could exist and not be detected with physical examination or within the limits and capabilities of laboratory and other studies. You should return or follow up as you were instructed on your visit today for further evaluation if your symptoms do not resolve. This is your sixth visit to the emergency department for leg pain in the past month. All of your workups have been normal on every one of these previous visits. You have been seen by a local neurologist who was unable to find a reason for your leg pain. Follow-up with your primary care physician, Dr. Wolff. Take Tylenol or ibuprofen for your pains. FOLLOW-UP CARE: If you have been referred to a physician for follow-up care, call the physician s office for an appointment as you were instructed or within the next two days. If you experience worsening or a significant change in your symptoms, notify the physician immediately or return to the Emergency Department at any time for re-evaluation. Referrals: BENEDICTO WOLFF MD [Primary Care Provider] - Follow up as needed
[2016-09-18 18:14] VITALS: BP 118/68
== END 2016-09-18 18:06 | disposition home or self-care (01) ==
LOC: ER 14:11
DX: M79.604 Pain in right leg (principal); M79.605 Pain in left leg; M79.89 Other specified soft tissue disorders; F41.9 Anxiety disorder, unspecified; F17.200 Nicotine dependence, unspecified, uncomplicated
CPT/HCPCS: 36415; 80053; 81001; 81025; 85025; 99283

== ENCOUNTER 2016-11-01 16:01 | Emergency (ER) | payer MEDICAID ==
[2016-11-01] MEDS ORDERED: NORMAL SALINE 1000 ML 1,000 ML IV PRN (16:33)
--- NOTE | 2016-11-01 16:34 | ER Document Report ---
ED Medical Screen (RME) - General Chief Complaint: Abdominal Pain Stated Complaint: VOMITING, ABDOMINAL PAIN Time Seen by Provider: 11/01/16 16:32 Notes: Patient states that she has 4 days of abdominal cramping and vomiting blood. She denies any problems with urination or vaginal bleeding discharge. She states she does have diarrhea as well. She denies any history of chronic medical conditions or previous surgeries. TRAVEL OUTSIDE OF THE [place] IN LAST 30 DAYS: No - Related Data Allergies/Adverse Reactions: No Known Allergies Allergy (Verified 11/01/16 16:21) Past Medical History Pulmonary Medical History: Reports: Hx Bronchitis Renal/ Medical History: Denies: Hx Peritoneal Dialysis Psychiatric Medical History: Reports: Hx Anxiety, Hx Bipolar Disorder, Hx Depression, Hx Schizophrenia Past Surgical History: Reports: Hx Section - x1, Hx Oral Surgery - wisdom teeth - Immunizations Hx Diphtheria, Pertussis, Tetanus Vaccination: Yes Physical Exam - Vital signs Vitals: Temp Pulse Resp BP Pulse Ox 98.5 F 110 H 20 141/74 H 100 11/01/16 16:21 11/01/16 16:21 11/01/16 16:21 11/01/16 16:21 11/01/16 16:21 Course - Vital Signs Vital signs: Temp Pulse Resp BP Pulse Ox 98.5 F 110 H 20 141/74 H 100 11/01/16 16:21 11/01/16 16:21 11/01/16 16:21 11/01/16 16:21 11/01/16 16:21
[2016-11-01 17:17] LABS: ABSOLUTE BASOPHILS # (AUTO) 0.1 10^3/uL (0.0-0.2); ABSOLUTE EOSINOPHILS # (AUTO) 0.2 10^3/uL (0.0-0.6); ABSOLUTE LYMPHOCYTES (AUTO) 3.7 10^3/uL (0.5-4.7); ABSOLUTE MONOCYTES (AUTO) 0.4 10^3/uL (0.1-1.4); ABSOLUTE NEUT (AUTO) 3.8 10^3/uL (1.7-8.2); BASOPHILS % (AUTO) 1.3 % (0-2); EOSINOPHILS % (AUTO) 2.5 % (0-6); HEMATOCRIT 35.3 % (36.0-47.0); HEMOGLOBIN 11.4 g/dL (12.0-15.5); HGB HCT DIFFERENCE -1.1; LYMPHOCYTES % (AUTO) 45.7 % (13-45); MEAN CORPUSCULAR HEMOGLOBIN 23.1 pg (27.0-33.4); MEAN CORPUSCULAR HGB CONC 32.3 g/dL (32.0-36.0); MEAN CORPUSCULAR VOLUME 72 fl (80-97); MONOCYTES % (AUTO) 4.6 % (3-13); RED BLOOD COUNT 4.93 10^6/uL (3.72-5.28); RED CELL DISTRIBUTION WIDTH 18.4 % (11.5-14.0); SEGMENTED NEUTROPHILS % (AUTO) 45.9 % (42-78); WHITE BLOOD COUNT 8.2 10^3/uL (4.0-10.5)
[2016-11-01 17:25] LABS: APPEARANCE,URINE SLIGHTLY-CLOUDY; BILIRUBIN,URINE NEGATIVE (NEGATIVE); GLUCOSE, URINE NEGATIVE (NEGATIVE); KETONES,URINE NEGATIVE (NEGATIVE); LEUKOCYTE ESTERASE,URINE NEGATIVE (NEGATIVE); NITRITE,URINE NEGATIVE (NEGATIVE); PROTEIN,URINE NEGATIVE (NEGATIVE); URINE SPECIFIC GRAVITY 1.021
[2016-11-01 18:37] LABS: ALANINE AMINOTRANSFERASE 22 U/L (9-52); ALBUMIN 3.8 g/dL (3.5-5.0); ALKALINE PHOSPHATASE 81 U/L (38-126); ANION GAP 12 (5-19); ASPARTATE AMINO TRANSFERASE 12 U/L (14-36); BILIRUBIN,DIRECT 0.3 mg/dL (0.0-0.4); BILIRUBIN,TOTAL 0.3 mg/dL (0.2-1.3); BLOOD UREA NITROGEN 8 mg/dL (7-20); CALCIUM 8.6 mg/dL (8.4-10.2); CARBON DIOXIDE 22 mmol/L (22-30); CHLORIDE 109 mmol/L (98-107); CREATININE RESULT 0.64 mg/dL (0.52-1.25); GLUCOSE 86 mg/dL (75-110); LIPASE 72.9 U/L (23-300); POTASSIUM 4.1 mmol/L (3.6-5.0); SODIUM 142.9 mmol/L (137-145); TOTAL PROTEIN 6.8 g/dL (6.3-8.2)
[2016-11-01 18:39] VITALS: BP 123/70
[2016-11-01] MEDS ORDERED: FAMOTIDINE INJ/PF 20 MG/2 ML SDV IV ONE (18:40)
[2016-11-01] MEDS ORDERED: ONDANSETRON HCL INJ/PF 4 MG/2 ML SDV IV ONE (18:40)
--- NOTE | 2016-11-01 20:06 | ER Document Report ---
ED General - General Chief Complaint: Abdominal Pain Stated Complaint: VOMITING, ABDOMINAL PAIN Time Seen by Provider: 11/01/16 16:32 TRAVEL OUTSIDE OF THE [place] IN LAST 30 DAYS: No - HPI Patient complains to provider of: Epigastric abdominal pain nausea vomiting Notes: Patient coming in for epigastric pain nausea vomiting states his states been vomiting for approximately the past 4 days denies any sick contacts. Patient states last time she has vomited she has been vomiting up clots. Patient states epigastric abdominal pain sharp and stabbing. Patient states she was able to eat chicken nuggets today before despite vomiting for the last 4 days. Denies any fevers chills denies any recent travel recent antibiotics. Upon my evaluation patient is resting comfortably in stretcher in no obvious distress. - Related Data Allergies/Adverse Reactions: No Known Allergies Allergy (Verified 11/01/16 16:21) Past Medical History - Social History Smoking Status: Current Every Day Smoker Frequency of alcohol use: None Drug Abuse: None Family History: CAD, COPD, CVA, DM, Hyperlipidemia, Hypertension, Other - Depression Patient has suicidal ideation: No Patient has homicidal ideation: No Pulmonary Medical History: Reports: Hx Bronchitis Renal/ Medical History: Denies: Hx Peritoneal Dialysis Psychiatric Medical History: Reports: Hx Anxiety, Hx Bipolar Disorder, Hx Depression, Hx Schizophrenia Past Surgical History: Reports: Hx Section - x1, Hx Oral Surgery - wisdom teeth - Immunizations Hx Diphtheria, Pertussis, Tetanus Vaccination: Yes Review of Systems - Review of Systems Constitutional: No symptoms reported EENT: No symptoms reported Cardiovascular: No symptoms reported Respiratory: No symptoms reported Gastrointestinal: Abdominal pain, Nausea, Vomiting Genitourinary: No symptoms reported Female Genitourinary: No symptoms reported Musculoskeletal: No symptoms reported Skin: No symptoms reported Hematologic/Lymphatic: No symptoms reported Neurological/Psychological: No symptoms reported -: Yes All other systems reviewed and negative Physical Exam - Vital signs Vitals: Temp Pulse Resp BP Pulse Ox 98.5 F 110 H 20 141/74 H 100 11/01/16 16:12 11/01/16 16:12 11/01/16 16:12 11/01/16 16:12 11/01/16 16:12 Interpretation: Normal - General General appearance: Appears well, Alert - HEENT Head: Normocephalic, Atraumatic Eyes: Normal Pupils: PERRL - Respiratory Respiratory status: No respiratory distress Chest status: Nontender Breath sounds: Normal Chest palpation: Normal - Cardiovascular Rhythm: Regular Heart sounds: Normal auscultation Murmur: No - Abdominal Inspection: Normal Distension: No distension Bowel sounds: Normal Tenderness: Tender - Inconsistent tenderness patient has tenderness to palpation is mild to moderate on examination however to deep auscultation with stethoscope patient resting comfortably normal bowel sounds Organomegaly: No organomegaly - Back Back: Normal, Nontender - Extremities General upper extremity: Normal inspection, Nontender, Normal color, Normal ROM , Normal temperature General lower extremity: Normal inspection, Nontender, Normal color, Normal ROM , Normal temperature, Normal weight bearing. No: Katie's sign - Neurological Neuro grossly intact: Yes Cognition: Normal Orientation: AAOx4 Jt Coma Scale Eye Opening: Spontaneous [place] Coma Scale Verbal: Oriented [place] Coma Scale Motor: Obeys Commands Jt Coma Scale Total: 15 Speech: Normal Motor strength normal: LUE, RUE, LLE, RLE Sensory: Normal - Psychological Associated symptoms: Normal affect, Normal mood - Skin Skin Temperature: Warm Skin Moisture: Dry Skin Color: Normal Course - Re-evaluation Re-evalutation: 11/01/16 22:49 The patient presents with abdominal pain without signs of peritonitis or other life-threatening or serious etiology. The patient appears stable for discharge and has been instructed to return immediately if the symptoms worsen in any way , or in 8-12hr if not improved for re-evaluation. The patient has been instructed to return if the symptoms worsen or change in any way. No vomiting here able tolerate p.o. will discharge home - Vital Signs Vital signs: Temp Pulse Resp BP Pulse Ox 98.2 F 98 20 123/70 100 11/01/16 18:36 11/01/16 18:36 11/01/16 16:21 11/01/16 18:36 11/01/16 18:36 - Laboratory Result Diagrams: 11/01/16 16:55 11/01/16 18:15 Laboratory results interpreted by me: 11/01/16 11/01/16 11/01/16 16:55 16:55 18:15 Hgb 11.4 L Hct 35.3 L MCV 72 L MCH 23.1 L RDW 18.4 H Lymphocytes % 45.7 H Chloride 109 H AST 12 L Urine Blood MODERATE H Urine Urobilinogen 2.0 H Discharge - Discharge Clinical Impression: Nausea vomiting and diarrhea Condition: Good Disposition: HOME, SELF-CARE Instructions: Abdominal Pain ([facility]), Gastroenteritis (adult) ([facility]) Additional Instructions: Laboratory values did not show any signs of significant pathology. Return to the ER symptoms worsen. Take medication as prescribed. Prescriptions: Dicyclomine HCl [Bentyl 20 mg Tablet] 20 mg PO QID #40 tablet Ondansetron [Zofran Odt 4 mg Tablet] 1 - 2 tab PO Q4H PRN #20 tab.rapdis PRN Reason: For Nausea/Vomiting Referrals: BENEDICTO WOLFF MD [Primary Care Provider] - Follow up as needed
== END 2016-11-01 21:32 | disposition home or self-care (01) ==
LOC: ER 16:01
DX: R11.2 Nausea with vomiting, unspecified (principal); R19.7 Diarrhea, unspecified; R10.9 Unspecified abdominal pain; R10.13 Epigastric pain; F17.200 Nicotine dependence, unspecified, uncomplicated
CPT/HCPCS: 99284; 96374; 96375; 36415; 83690; 85025; 81025; 80053; 81001; J2405; S0028

== ENCOUNTER 2016-11-21 19:35 | Emergency (ER) | payer MEDICAID | END 2016-11-21 23:00 | disposition left against medical advice (07) | LOC: ER 19:35 | DX: Z53.21 Procedure and treatment not carried out due to patient leaving prior to being seen by health care provider (principal) ==

== ENCOUNTER 2016-11-22 10:19 | Emergency (ER) | payer MEDICAID ==
[2016-11-22] MEDS ORDERED: ACETAMINOPHEN 325 MG TABLET PO ONE (10:40)
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
--- NOTE | 2016-11-22 11:05 | RADIOLOGY REPORT (SQ) ---
EXAM DESCRIPTION: CT HEAD WITHOUT COMPLETED DATE/TIME: 11/22/2016 10:52 am REASON FOR STUDY: fall syncope injury COMPARISON: None. TECHNIQUE: Axial images acquired through the brain without intravenous contrast. Images reviewed wi th bone, brain and subdural windows. Images stored on PACS. All CT scanners at this facility use dose modulation, iterative reconstruction, and/or weight based d osing when appropriate to reduce radiation dose to as low as reasonably achievable (ALARA). [facility]: Dose Right [facility]: CareDose [facility]: Dose Right [facility]: Teradose 4D [facility]: Smart Metropia RADIATION DOSE: Up-to-date CT equipment and radiation dose reduction techniques were employed. CTDIv ol: 64.6 mGy. DLP: 1163 mGy-cm. mGy. LIMITATIONS: None. FINDINGS: VENTRICLES: Normal size and contour. CEREBRUM: No masses. No hemorrhage. No midline shift. No evidence for acute infarction. Normal gra y/white matter differentiation. No areas of low density in the white matter. CEREBELLUM: No masses. No hemorrhage. No alteration of density. No evidence for acute infarction. EXTRAAXIAL SPACES: No fluid collections. No masses. ORBITS AND GLOBE: No intra- or extraconal masses. Normal contour of globe without masses. CALVARIUM: No fracture. PARANASAL SINUSES: No fluid or mucosal thickening. SOFT TISSUES: No mass or hematoma. OTHER: No other significant finding. IMPRESSION: NORMAL BRAIN CT WITHOUT CONTRAST. EVIDENCE OF ACUTE STROKE: NO. COMMENT: Quality ID # [id number]: Final reports with documentation of one or more dose reduction techniques (e.g., Automated exposure control, adjustment of the mA and/or kV according to patient size, use of iterative reconstruction technique) TECHNICAL DOCUMENTATION: JOB ID: [id number]- All Rights Reserved
[2016-11-22] MEDS ORDERED: IBUPROFEN 800 MG TABLET PO ONE (12:23)
[2016-11-22 12:34] VITALS: BP 130/65
== END 2016-11-22 12:34 | disposition home or self-care (01) ==
LOC: ER 10:19
DX: R51 Headache (principal); W19.XXXA Unspecified fall, initial encounter; R11.2 Nausea with vomiting, unspecified; F17.210 Nicotine dependence, cigarettes, uncomplicated; Z71.6 Tobacco abuse counseling
CPT/HCPCS: 99283; 70450; J3490 ×2

== ENCOUNTER 2017-02-04 09:38 | Emergency (ER) | payer SELFPAY ==
[2017-02-04 09:44] VITALS: BP 131/75
[2017-02-04] MEDS ORDERED: HYDROCODONE/ACETAMINOPHEN 5-325 MG TABLET PO ONE (10:53)
--- NOTE | 2017-02-04 10:56 | ER Document Report ---
ED Skin Rash/Insect Bite/Abscs - General Chief Complaint: Abscess Stated Complaint: POSSIBLE ABSCESS Time Seen by Provider: 02/04/17 09:56 Mode of Arrival: Ambulatory Information source: Patient Notes: 26-year-old female presents to ED for an abscess to the right lower breast. She states is no drainage is red and inflamed and sore. She states it started with just a little pimple and yesterday got much bigger today is much more painful. TRAVEL OUTSIDE OF THE [place] IN LAST 30 DAYS: No - HPI Patient complains to provider of: Tender/swollen area Onset: Other - 2 days Onset/Duration: Gradual Quality of pain: Pressure, Sharp Severity: Severe Pain Level: 5 Skin Character: Abscess - right breast Skin Temperature: Warm Quality of rash: Painful Identify cause: No Exacerbated by: Movement Relieved by: Denies Similar symptoms previously: Yes - not on breast Recently seen / treated by doctor: No - Related Data Allergies/Adverse Reactions: Penicillins Allergy (Verified 02/04/17 09:39) Home Medications: Current Home Medications Gabapentin 300 mg PO QID 02/04/17 [History] Past Medical History - General Information source: Patient - Social History Smoking Status: Current Every Day Smoker Cigarette use (# per day): Yes - 1/3 ppd Chew tobacco use (# tins/day): No Smoking Education Provided: Yes - less than 2 min Frequency of alcohol use: Occasional Drug Abuse: None Occupation: none Lives with: Parents Family History: Arthritis, CAD, COPD, CVA, DM, Hyperlipidemia, Hypertension, Thyroid Disfunction, Other - Depression, anxiety, and schizophrenia Patient has suicidal ideation: No Patient has homicidal ideation: No - Past Medical History Cardiac Medical History: Reports: None Pulmonary Medical History: Reports: Hx Bronchitis EENT Medical History: Reports: None Neurological Medical History: Reports: None Endocrine Medical History: Reports: None Renal/ Medical History: Reports: None Malignancy Medical History: Reports: None GI Medical History: Reports: None Musculoskeltal Medical History: Reports None Skin Medical History: Reports Hx Cellulitis Psychiatric Medical History: Reports: Hx Anxiety, Hx Bipolar Disorder, Hx Depression, Hx Post Traumatic Stress Disorder, Hx Schizophrenia Traumatic Medical History: Reports: None Infectious Medical History: Reports: None Past Surgical History: Reports: Hx Section - x1, Hx Oral Surgery - wisdom teeth - Immunizations Immunizations up to date: No Hx Diphtheria, Pertussis, Tetanus Vaccination: No Review of Systems - Review of Systems Constitutional: No symptoms reported EENT: No symptoms reported Cardiovascular: No symptoms reported Respiratory: No symptoms reported Gastrointestinal: No symptoms reported Genitourinary: No symptoms reported Female Genitourinary: No symptoms reported Musculoskeletal: No symptoms reported Skin: Other - Abscess right lower breast Hematologic/Lymphatic: No symptoms reported Neurological/Psychological: No symptoms reported -: Yes All other systems reviewed and negative Physical Exam - Vital signs Vitals: Temp Pulse Resp BP Pulse Ox 98.7 F 92 15 131/75 H 98 02/04/17 09:43 02/04/17 09:43 02/04/17 09:43 02/04/17 09:43 02/04/17 09:43 Interpretation: Normal - General General appearance: Appears well, Alert - HEENT Head: Normocephalic, Atraumatic Eyes: Normal Pupils: PERRL - Respiratory Respiratory status: No respiratory distress Chest status: Nontender Breath sounds: Normal Chest palpation: Normal - Cardiovascular Rhythm: Regular Heart sounds: Normal auscultation Murmur: No - Abdominal Inspection: Normal Distension: No distension Bowel sounds: Normal Tenderness: Nontender Organomegaly: No organomegaly - Back Back: Normal, Nontender - Extremities General upper extremity: Normal inspection, Nontender, Normal color, Normal ROM , Normal temperature General lower extremity: Normal inspection, Nontender, Normal color, Normal ROM , Normal temperature, Normal weight bearing. No: Katie's sign - Neurological Neuro grossly intact: Yes Cognition: Normal Orientation: AAOx4 Jt Coma Scale Eye Opening: Spontaneous Jt Coma Scale Verbal: Oriented Jt Coma Scale Motor: Obeys Commands Jt Coma Scale Total: 15 Speech: Normal Motor strength normal: LUE, RUE, LLE, RLE Sensory: Normal - Psychological Associated symptoms: Normal affect, Normal mood - Skin Skin Temperature: Warm Skin Moisture: Dry Skin Color: Normal Skin irregularity: Abscess Location of irregularity: Other - Right lower breast Character of irregularity: Erythematous Irregularity with: Swelling, Tenderness, Warmth, Inflammation Course - Vital Signs Vital signs: Temp Pulse Resp BP Pulse Ox 98.7 F 92 15 131/75 H 98 02/04/17 09:43 02/04/17 09:43 02/04/17 09:43 02/04/17 09:43 02/04/17 09:43 Procedures - Incision and Drainage Right breast Time completed: 11:23 Type: Simple Anesthetic type: 1% Lidocaine mL's of anesthetic: 4 Blade size: 11 I&D procedure: Shurclens applied, Iodoform packing placed Incision Method: Incision made by scalpel Adult Front & Back picture: 1 - abscess Discharge - Discharge Clinical Impression: Abscess of right breast Condition: Stable Disposition: HOME, SELF-CARE Instructions: Family Physicians / Practices Additional Instructions: ABSCESS: You have an abscess (boil). This a pus-forming infection, usually due to staph. Some boils may be left to drain on their own, but most require lancing. From the time the tender lump first appears, it may be three or four days before the abscess is ready to katie. Local heat and rest help at this stage of treatment. An antibiotic may prevent spread of the infection. Once the abscess is opened, packing may be placed into it. This is done so pus is not sealed inside by premature closure of the cavity. The packing will be removed at your follow-up visit or you may be advised to remove it yourself at home. Sometimes this packing must be replaced a few times during healing. The wound will heal with surprisingly little scar. Depending on the size and location of an abscess, healing can take one to four weeks. You may shower and wash the area around the incision site two or three times a day. Antibiotics may be prescribed, but are usually not necessary after an abscess has been drained. If you develop fever, chills, worsening pain, or increasing swelling in the area, call the doctor or return immediately. POST INCISION AND DRAINAGE: You have had an incision made to allow drainage of an abscess. The incision must remain open so that pus and debris can drain from the wound. If the abscess cavity is large, packing is placed. This keeps the tissues from collapsing and trapping pus inside, while the body shrinks the cavity. The packing may need to be replaced every day or two. The physician will instruct you on the packing. Keep a bulky dressing over the area. Replace it if it becomes saturated with blood or pus. Do not disturb the packing (if present). You may shower and cleanse the area with gentle soap and warm water two or three times a day. Local warmth may be soothing, and may promote faster healing. Return if you develop high fever or chills, or if you note spreading redness, increasing swelling, or increasing tenderness. ORAL NARCOTIC MEDICATION: You have been given a [place] disp pack for pain control. This medication is a narcotic. It's best taken with food, as nausea can result if taken on an empty stomach. Don't operate machinery or drive within six hours of taking this medication. Do not combine this medicine with alcohol, or with any medication which can cause sedation (such as cold tablets or sleeping pills) unless you get permission from the physician. Narcotics tend to cause constipation. If possible, drink plenty of fluids and eat a diet high in fiber and fruits. CEPHALEXIN: The antibiotic you've been prescribed is a member of the cephalosporin class. This type of antibiotic covers a wide variety of infections, including those of the skin, lungs, and urinary tract. It's useful for staph infections. This antibiotic is slightly similar to the penicillin family. In rare cases , a person who is allergic to penicillin will also be allergic to this medication. If you have had a severe allergic reaction to penicillin, and have not taken this antibiotic since that time, notify your doctor. Antibiotics which cover many germs ("broad spectrum" antibiotics) are more likely to cause diarrhea or "yeast" infections. Women prone to vaginal yeast problems may suffer an attack after taking this antibiotic. In infants, oral thrush (white spots "stuck" on the cheek) or yeast diaper rash may result. See your doctor if these problems occur. Call at once if you develop itching, hives , shortness of breath, or lightheadedness. TRIMETHOPRIM-SULFA: You have been given a prescription for trimethoprim-sulfa (TMS, Septra, Bactrim). This is a combination antibiotic of the sulfa class, often used for urinary tract infections, middle ear infections, bronchitis, shigella intestinal infection, and Pneumocystis pneumonia. TMS is usually well-tolerated. Occasional side effects include nausea and decreased appetite. Septra is not recommended for infants less than two months of age. Do not take this medication if you have experienced severe side effects or allergy to sulfa medicine. You should stop this medicine at once and contact your physician if you develop any rash, joint pain, shortness of breath, bruising, or jaundice ( yellow color in the skin), or if you develop any other new or unusual symptoms. Epsom Salt Soaks Soak the wound area in a container of warm epsom salt water. If you can't get the wound area into a bucket or gay, use a folded towel soaked in the epsom salt solution and apply to the area. Use clean hot tap water (about the temperature of a very warm bath), mixing in about one (1) teaspoon for every pint of water. Two gallon --> 16 teaspoons Epsom Salts One gallon --> 8 teaspoons Epsom Salts Two quarts --> 4 teaspoons Epsom Salts One quart --> 2 teaspoons Epsom Salts Soak the wound for about 20 minutes while gently moving it around in the water. Repeat this four (4) times a day. FOLLOW-UP CARE: Most simple abscesses will not require a follow up visit. If you had packing placed in the abscess, remove it as instructed by the physician. If you have been referred to a physician for follow-up care, call the physicians office for an appointment as you were instructed or within the next two days. If you experience worsening or a significant change in your symptoms, return to the Emergency Department at any time for re-evaluation. Prescriptions: Cephalexin Monohydrate [Keflex 500 mg Capsule] 500 mg PO QID #20 capsule Sulfamethoxazole/Trimethoprim [Septra-Ds 800-160 mg Tablet] 1 tab PO BID #14 tablet Forms: Elevated Blood Pressure, Smoking Cessation Education
[2017-02-04] MEDS ORDERED: SULFAMETHOXAZOLE/TRIMETHOPRIM 800-160 MG TABLET PO ONE (11:16)
[2017-02-04] MEDS ORDERED: CEPHALEXIN 500 MG CAPSULE PO ONE (11:16)
[2017-02-04] MEDS ORDERED: HYDROCODONE/ACETAMINOPHEN 5-325 MG 6 TAB/DSPK PO PRN (11:18)
== END 2017-02-04 12:20 | disposition home or self-care (01) ==
LOC: ER 09:38
DX: N61.1 Abscess of the breast and nipple (principal); F17.210 Nicotine dependence, cigarettes, uncomplicated; Z71.6 Tobacco abuse counseling; Z88.6 Allergy status to analgesic agent; Z88.0 Allergy status to penicillin
CPT/HCPCS: 99283; 87070; 87205; 87075; 87077; 10060; A6266

== ENCOUNTER 2017-02-10 11:25 | Emergency (ER) | payer MEDICAID ==
[2017-02-10] MEDS ORDERED: DIPHENHYDRAMINE HCL 50 MG/ML VIAL IV ONE (11:46)
[2017-02-10] MEDS ORDERED: METHYLPREDNISOLONE INJ 125 MG/2 ML SDV IV ONE (11:46)
[2017-02-10] MEDS ORDERED: FAMOTIDINE INJ/PF 20 MG/2 ML SDV IV ONE (11:47)
--- NOTE | 2017-02-10 11:49 | ER Document Report ---
ED Allergic Reaction - General Chief Complaint: Allergic Reaction Stated Complaint: POSSIBLE ALLERGIC REACTION Time Seen by Provider: 02/10/17 11:44 Mode of Arrival: Ambulatory Information source: Patient Notes: This is a 26-year-old female that presents to the emergency room with itching, red rash on face, extremities, trunk. Patient has been on antibiotics for the past week. The patient has a known allergy to penicillin. She had an abscess drainage under her right breast one week ago and was placed on Keflex and Bactrim. Patient states her last dose of medicines were this morning. She states that she had a lot of itching last night and woke up with obvious rash. TRAVEL OUTSIDE OF THE [place] IN LAST 30 DAYS: No - HPI Onset: This morning Onset/Duration: Gradual Quality of pain: No pain Severity: None Pain Level: Denies Identified cause: Yes Medication Exposure: Antibiotic Skin rash / itching: Facial, Extremities, "Redness" Associated symptoms: None Similar symptoms previously: No Recently seen / treated by doctor: Yes - Related Data Allergies/Adverse Reactions: Penicillins Allergy (Verified 02/04/17 09:39) Past Medical History - General Information source: Patient - Social History Smoking Status: Current Every Day Smoker Cigarette use (# per day): No Chew tobacco use (# tins/day): No Frequency of alcohol use: Occasional Drug Abuse: None Lives with: Alone Family History: Arthritis, CAD, COPD, CVA, DM, Hyperlipidemia, Hypertension, Thyroid Disfunction, Other - Depression, anxiety, and schizophrenia Patient has suicidal ideation: No Patient has homicidal ideation: No Pulmonary Medical History: Reports: Hx Bronchitis Renal/ Medical History: Denies: Hx Peritoneal Dialysis Skin Medical History: Reports Hx Cellulitis Psychiatric Medical History: Reports: Hx Anxiety, Hx Bipolar Disorder, Hx Depression, Hx Post Traumatic Stress Disorder, Hx Schizophrenia Past Surgical History: Reports: Hx Section - x1, Hx Oral Surgery - wisdom teeth - Immunizations Immunizations up to date: No Hx Diphtheria, Pertussis, Tetanus Vaccination: No Review of Systems - Review of Systems Constitutional: denies: Chills, Fever EENT: No symptoms reported Cardiovascular: No symptoms reported Respiratory: No symptoms reported Gastrointestinal: No symptoms reported Genitourinary: No symptoms reported Female Genitourinary: No symptoms reported Musculoskeletal: See HPI Skin: See HPI Hematologic/Lymphatic: No symptoms reported Neurological/Psychological: No symptoms reported Physical Exam - Vital signs Vitals: Temp Pulse Resp BP Pulse Ox 98.8 F 125 H 18 115/78 98 02/10/17 11:30 02/10/17 11:30 02/10/17 11:30 02/10/17 11:30 02/10/17 11:30 Notes: Physical exam: GENERAL: 26-year-old female, alert and oriented 3, no acute distress HEAD: Atraumatic, normocephalic. EYES: Pupils equal round and reactive to light, extraocular movements intact, sclera anicteric, conjunctiva are normal. ENT: TMs normal, nares patent, oropharynx clear without exudates. Moist mucous membranes. NECK: Normal range of motion, supple without obvious mass or JVD. LUNGS: Breath sounds clear to auscultation bilaterally and equal. No wheezes rales or rhonchi. HEART: Regular rate and rhythm without murmurs, rubs or gallops. ABDOMEN: Soft, normoactive bowel sounds. No tenderness to palpation. No guarding, no rebound. No masses appreciated. EXTREMITIES: Normal range of motion, no pitting or edema. No clubbing or cyanosis. NEUROLOGICAL: Cranial nerves II through XII grossly intact. Normal speech, moving all extremities. PSYCH: Normal mood, normal affect. SKIN: Diffuse erythema to the face, maculopapular rash to the upper and lower extremities and trunk. Course - Vital Signs Vital signs: Temp Pulse Resp BP Pulse Ox 98.9 F 103 H 16 112/62 97 02/10/17 17:03 02/10/17 17:03 02/10/17 17:03 02/10/17 17:03 02/10/17 17:03 - Laboratory Result Diagrams: 02/10/17 12:04 02/10/17 12:04 Laboratory results interpreted by me: 02/10/17 02/10/17 12:04 12:04 WBC 3.5 L MCH 26.8 L RDW 22.3 H Eosinophils % 8.9 H Sodium 136.3 L Carbon Dioxide 21 L Glucose 119 H AST 68 H ALT 66 H Discharge - Discharge Clinical Impression: Allergic reaction Qualifiers: Encounter type: initial encounter Qualified Code(s): T78.40XA - Allergy, unspecified, initial encounter Condition: Stable Disposition: HOME, SELF-CARE Additional Instructions: Thank you for choosing [facility] for your care. The examination and treatment you have received in the Emergency Department today has been rendered on an emergency basis only and is not intended to be a substitute for complete medical care. You should contact your follow-up physician as it is important that he or she examine you for any new or remaining problems. If given a copy of any lab tests or radiology reports, please bring them with you when you see your physician. If your problem worsens or new symptoms appear and you are unable to arrange prompt follow-up care, return to the Emergency Department. Specific signs to look out for: Worsening itching, worsening redness, any difficulty breathing, any shortness of breath. Any other instructions: Take the prednisone as prescribed. Take the Pepcid as prescribed. Take the Benadryl as prescribed. Follow-up with an performing artist. You should call your primary care doctor and get a referral for one this week. You were on 2 antibiotics (cephalexin which is a cephalosporin, and Bactrim which is a sulfa medicine). You should avoid both cephalosporins and sulfa medicine until following up with an performing artist. Prescriptions: Diphenhydramine HCl [Benadryl 50 mg Capsule] 1 cap PO Q6 PRN #14 capsule PRN Reason: Famotidine [Pepcid 20 mg Tablet] 20 mg PO DAILY #12 tablet Prednisone 60 mg PO DAILY #15 tablet Referrals: BENEDICTO WOLFF MD [Primary Care Provider] - Follow up in 3-5 days
[2017-02-10] MEDS: NORMAL SALINE 1000 ML 1,000 ML IV PRN ×2 (12:13→13:46)
[2017-02-10] MEDS ORDERED: MAGNESIUM SULFATE/D5W 1 GM/100 ML RTUPB IV ONE (13:15)
[2017-02-10 13:34] LABS: ALANINE AMINOTRANSFERASE 66 U/L (9-52); ALBUMIN 3.8 g/dL (3.5-5.0); ALKALINE PHOSPHATASE 93 U/L (38-126); ANION GAP 13 (5-19); ASPARTATE AMINO TRANSFERASE 68 U/L (14-36); BILIRUBIN,DIRECT 0.2 mg/dL (0.0-0.4); BILIRUBIN,TOTAL 0.2 mg/dL (0.2-1.3); BLOOD UREA NITROGEN 7 mg/dL (7-20); CALCIUM 8.6 mg/dL (8.4-10.2); CARBON DIOXIDE 21 mmol/L (22-30); CHLORIDE 102 mmol/L (98-107); CREATININE RESULT 0.63 mg/dL (0.52-1.25); GLUCOSE 119 mg/dL (75-110); POTASSIUM 3.9 mmol/L (3.6-5.0); SODIUM 136.3 mmol/L (137-145); TOTAL PROTEIN 6.7 g/dL (6.3-8.2)
[2017-02-10] MEDS ORDERED: NORMAL SALINE 1000 ML 1,000 ML IV PRN (13:41)
[2017-02-10 13:43] LABS: ABSOLUTE EOSINOPHILS # (AUTO) 0.3 10^3/uL (0.0-0.6); ABSOLUTE LYMPHOCYTES (AUTO) 0.6 10^3/uL (0.5-4.7); ABSOLUTE MONOCYTES (AUTO) 0.2 10^3/uL (0.1-1.4); ABSOLUTE NEUT (AUTO) 2.4 10^3/uL (1.7-8.2); BASOPHILS % (AUTO) 0.1 % (0-2); EOSINOPHILS % (AUTO) 8.9 % (0-6); HEMATOCRIT 41.2 % (36.0-47.0); HEMOGLOBIN 13.7 g/dL (12.0-15.5); HGB HCT DIFFERENCE -0.1; MEAN CORPUSCULAR HEMOGLOBIN 26.8 pg (27.0-33.4); MEAN CORPUSCULAR HGB CONC 33.3 g/dL (32.0-36.0); MEAN CORPUSCULAR VOLUME 80 fl (80-97); RED BLOOD COUNT 5.13 10^6/uL (3.72-5.28); RED CELL DISTRIBUTION WIDTH 22.3 % (11.5-14.0); WHITE BLOOD COUNT 3.5 10^3/uL (4.0-10.5)
[2017-02-10 17:11] VITALS: BP 112/62
== END 2017-02-10 17:08 | disposition home or self-care (01) ==
LOC: ER 11:25
DX: T78.40XA Allergy, unspecified, initial encounter (principal); R21 Rash and other nonspecific skin eruption; X58.XXXA Exposure to other specified factors, initial encounter; F17.200 Nicotine dependence, unspecified, uncomplicated; Z88.0 Allergy status to penicillin
CPT/HCPCS: 99283; 96361; 96375; 96365; 36415; 85025; 80053; J1200; J2930; J3475; J7030; S0028

== ENCOUNTER 2017-04-13 09:12 | Emergency (ER) | payer MEDICAID ==
[2017-04-13 09:24] VITALS: BP 122/73
[2017-04-13] MEDS ORDERED: ONDANSETRON 4 MG TAB.RAPDIS PO ONE (09:40)
--- NOTE | 2017-04-13 09:43 | ER Document Report ---
HPI - HPI Patient complains to provider of: Skin infection Onset: Last week Onset/Duration: Persistent Quality of pain: Achy Pain Level: 5 Context: Patient complains of skin infection to the medial aspect of bilateral thighs for the past week. Patient denies any fever. Patient additionally reports nausea vomiting and diarrhea. Patient states she is vomited 3 times today. Patient does report recent sick contacts with similar symptoms. Patient without any abdominal tenderness. Associated Symptoms: Diarrhea, Nausea, Vomiting. denies: Fever Exacerbated by: Denies Relieved by: Denies Similar symptoms previously: Yes - Abscesses Recently seen / treated by doctor: No - ROS ROS below otherwise negative: Yes Systems Reviewed and Negative: Yes All other systems reviewed and negative - CONSTITUTIONAL Constitutional: DENIES: Fever, Chills - NEURO Neurology: DENIES: Headache - CARDIOVASCULAR Cardiovascular: DENIES: Chest pain - RESPIRATORY Respiratory: DENIES: Trouble Breathing - GASTROINTESTINAL Gastrointestinal: REPORTS: Nausea, Patient vomiting, Diarrhea. 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 Family History: Arthritis, CAD, COPD, CVA, DM, Hyperlipidemia, Hypertension, Thyroid Disfunction, Other - Depression, anxiety, and schizophrenia Pulmonary Medical History: Reports: Hx Bronchitis Renal/ Medical History: Denies: Hx Peritoneal Dialysis Skin Medical History: Reports Hx Cellulitis Psychiatric Medical History: Reports: Hx Anxiety, Hx Bipolar Disorder, Hx Depression, Hx Post Traumatic Stress Disorder, Hx Schizophrenia Past Surgical History: Reports: Hx Section - x1, Hx Oral Surgery - wisdom teeth - Immunizations Immunizations up to date: No Hx Diphtheria, Pertussis, Tetanus Vaccination: No Vertical Provider Document - CONSTITUTIONAL Agree With Documented VS: Yes Exam Limitations: No Limitations General Appearance: WD/WN, No Apparent Distress - INFECTION CONTROL TRAVEL OUTSIDE OF THE [place] IN LAST 30 DAYS: No - HEENT HEENT: Atraumatic, Normocephalic - NECK Neck: Normal Inspection - RESPIRATORY Respiratory: Breath Sounds Normal, No Respiratory Distress O2 Sat by Pulse Oximetry: 98 - CARDIOVASCULAR Cardiovascular: Regular Rate, Regular Rhythm, No Murmur - GI/ABDOMEN Gastrointestinal: Abdomen Soft, Abdomen Non-Tender, No Organomegaly, Normal Bowel Sounds - BACK Back: Normal Inspection. negative: CVA Tenderness-Right, CVA Tenderness-Left - MUSCULOSKELETAL/EXTREMETIES Musculoskeletal/Extremeties: MAEW - NEURO Level of Consciousness: Awake, Alert, Appropriate Motor/Sensory: No Motor Deficit - DERM Integumentary: Warm, Dry, Rash - Folliculitis to the medial aspect of bilateral thighs, 1 small indurated area to right medial thigh concerning for developing abscess, no fluctuance, Abscess Course - Vital Signs Vital signs: Temp Pulse Resp BP Pulse Ox 98.5 F 93 16 122/73 98 04/13/17 09:23 04/13/17 09:23 04/13/17 09:23 04/13/17 09:23 04/13/17 09:23 Discharge - Discharge Clinical Impression: Folliculitis, Vomiting and diarrhea, Abscess Condition: Stable Disposition: HOME, SELF-CARE Instructions: Abscess ([facility]), Bactroban Ointment ([facility]), Diarrhea, Nonspecific ( [facility]), Folliculitis ([facility]), Nausea or Vomiting, Nonspecific ([facility]) Additional Instructions: Return immediately for any new or worsening symptoms Followup with your primary care provider, call tomorrow to make a followup appointment Prescriptions: Mupirocin [Bactroban 2% Ointment 22 gm] 1 applic TP TID #22 gm Ondansetron HCl [Zofran 4 mg Tablet] 1 - 2 tab PO Q6 PRN #15 tablet PRN Reason: Sulfamethoxazole/Trimethoprim [Bactrim Ds Tablet] 1 each PO BID #20 tablet Forms: Smoking Cessation Education, Return to Work Referrals: BENEDICTO WOLFF MD [Primary Care Provider] - 04/16/17
== END 2017-04-13 10:01 | disposition home or self-care (01) ==
LOC: ER 09:12
DX: L73.9 Follicular disorder, unspecified (principal); L02.415 Cutaneous abscess of right lower limb; R11.2 Nausea with vomiting, unspecified; R19.7 Diarrhea, unspecified; F17.200 Nicotine dependence, unspecified, uncomplicated
CPT/HCPCS: 99283; S0119

== ENCOUNTER → 2017-04-16 | Outpatient (CLI) | payer MEDICAID ==
[2017-04-16 11:10] LABS: ABSOLUTE EOSINOPHILS # (AUTO) 0.5 10^3/uL (0.0-0.6); ABSOLUTE LYMPHOCYTES (AUTO) 0.5 10^3/uL (0.5-4.7); ABSOLUTE MONOCYTES (AUTO) 0.1 10^3/uL (0.1-1.4); ABSOLUTE NEUT (AUTO) 2.9 10^3/uL (1.7-8.2); BASOPHILS % (AUTO) 0.1 % (0-2); EOSINOPHILS % (AUTO) 11.7 % (0-6); HEMATOCRIT 39.7 % (36.0-47.0); HEMOGLOBIN 13.6 g/dL (12.0-15.5); LYMPHOCYTES % (AUTO) 12.3 % (13-45); MEAN CORPUSCULAR HEMOGLOBIN 29.1 pg (27.0-33.4); MEAN CORPUSCULAR HGB CONC 34.3 g/dL (32.0-36.0); MEAN CORPUSCULAR VOLUME 85 fl (80-97); MONOCYTES % (AUTO) 3.3 % (3-13); PLATELET COUNT 166 10^3/uL (150-450); RED BLOOD COUNT 4.68 10^6/uL (3.72-5.28); RED CELL DISTRIBUTION WIDTH 14.7 % (11.5-14.0); SEGMENTED NEUTROPHILS % (AUTO) 72.6 % (42-78); TOTAL CELLS COUNTED % (AUTO) 100 %; WHITE BLOOD COUNT 3.9 10^3/uL (4.0-10.5)
[2017-04-16 11:17] LABS: A TYPE INFLUENZA AG NEGATIVE (NEGATIVE); B INFLUENZA AG NEGATIVE (NEGATIVE)
[2017-04-16 11:44] LABS: ALANINE AMINOTRANSFERASE 50 U/L (9-52); ALBUMIN 3.3 g/dL (3.5-5.0); ALKALINE PHOSPHATASE 90 U/L (38-126); ANION GAP 11 (5-19); ASPARTATE AMINO TRANSFERASE 56 U/L (14-36); BILIRUBIN,DIRECT 0.2 mg/dL (0.0-0.4); BILIRUBIN,TOTAL 0.3 mg/dL (0.2-1.3); BLOOD UREA NITROGEN 14 mg/dL (7-20); CALCIUM 8.5 mg/dL (8.4-10.2); CARBON DIOXIDE 24 mmol/L (22-30); CHLORIDE 105 mmol/L (98-107); GLUCOSE 79 mg/dL (75-110); POTASSIUM 3.6 mmol/L (3.6-5.0); SODIUM 139.6 mmol/L (137-145); TOTAL PROTEIN 5.6 g/dL (6.3-8.2)
== END ==
LOC: OD 10:20
PROVIDERS: ATTEND Internal Medicine
DX: J10.89 Influenza due to other identified influenza virus with other manifestations (principal)
CPT/HCPCS: 36415; 80053; 85025; 87804

== ENCOUNTER 2017-04-18 09:45 | Emergency (ER) | payer MEDICAID ==
[2017-04-18] MEDS ORDERED: HYDROCODONE/ACETAMINOPHEN 5-325 MG TABLET PO ONE (11:35)
[2017-04-18 12:04] LABS: ABSOLUTE EOSINOPHILS # (AUTO) 0.4 10^3/uL (0.0-0.6); ABSOLUTE LYMPHOCYTES (AUTO) 1.5 10^3/uL (0.5-4.7); ABSOLUTE MONOCYTES (AUTO) 0.3 10^3/uL (0.1-1.4); ABSOLUTE NEUT (AUTO) 1.5 10^3/uL (1.7-8.2); BASOPHILS % (AUTO) 0.4 % (0-2); EOSINOPHILS % (AUTO) 11.2 % (0-6); HEMATOCRIT 40.8 % (36.0-47.0); HEMOGLOBIN 13.7 g/dL (12.0-15.5); MEAN CORPUSCULAR HEMOGLOBIN 28.9 pg (27.0-33.4); MEAN CORPUSCULAR HGB CONC 33.6 g/dL (32.0-36.0); MEAN CORPUSCULAR VOLUME 86 fl (80-97); MONOCYTES % (AUTO) 8.8 % (3-13); PLATELET COUNT 184 10^3/uL (150-450); RED BLOOD COUNT 4.75 10^6/uL (3.72-5.28); RED CELL DISTRIBUTION WIDTH 15.1 % (11.5-14.0); SEGMENTED NEUTROPHILS % (AUTO) 40.6 % (42-78); TOTAL CELLS COUNTED % (AUTO) 100 %; WHITE BLOOD COUNT 3.8 10^3/uL (4.0-10.5)
[2017-04-18 12:09] LABS: APPEARANCE,URINE CLEAR; BILIRUBIN,URINE NEGATIVE (NEGATIVE); COLOR,URINE YELLOW; GLUCOSE, URINE NEGATIVE (NEGATIVE); KETONES,URINE NEGATIVE (NEGATIVE); LEUKOCYTE ESTERASE,URINE NEGATIVE (NEGATIVE); NITRITE,URINE NEGATIVE (NEGATIVE); PROTEIN,URINE NEGATIVE (NEGATIVE); URINE SPECIFIC GRAVITY 1.008
[2017-04-18 12:19] LABS: ALANINE AMINOTRANSFERASE 97 U/L (9-52); ALBUMIN 3.3 g/dL (3.5-5.0); ALKALINE PHOSPHATASE 84 U/L (38-126); ANION GAP 10 (5-19); ASPARTATE AMINO TRANSFERASE 96 U/L (14-36); BILIRUBIN,DIRECT 0.4 mg/dL (0.0-0.4); BILIRUBIN,TOTAL 0.4 mg/dL (0.2-1.3); BLOOD UREA NITROGEN 6 mg/dL (7-20); CALCIUM 8.4 mg/dL (8.4-10.2); CARBON DIOXIDE 25 mmol/L (22-30); CHLORIDE 106 mmol/L (98-107); GLUCOSE 90 mg/dL (75-110); SODIUM 140.8 mmol/L (137-145); TOTAL PROTEIN 5.9 g/dL (6.3-8.2)
[2017-04-18] MEDS ORDERED: IBUPROFEN 600 MG TABLET PO ONE (12:24)
--- NOTE | 2017-04-18 12:52 | RADIOLOGY REPORT (SQ) ---
EXAM DESCRIPTION: CHEST PA/LAT COMPLETED DATE/TIME: 04/18/2017 12:27 pm REASON FOR STUDY: cough COMPARISON: 03/11/2015 EXAM PARAMETERS: NUMBER OF VIEWS: two views TECHNIQUE: Digital Frontal and Lateral radiographic views of the chest acquired. RADIATION DOSE: NA LIMITATIONS: none FINDINGS: LUNGS AND PLEURA: No opacities, masses or pneumothorax. No pleural effusion. MEDIASTINUM AND HILAR STRUCTURES: No masses or contour abnormalities. HEART AND VASCULAR STRUCTURES: Heart normal size. No evidence for failure. BONES: No acute findings. HARDWARE: None in the chest. OTHER: No other significant finding. IMPRESSION: NO SIGNIFICANT RADIOGRAPHIC FINDING IN THE CHEST. TECHNICAL DOCUMENTATION: JOB ID: [id number] [employer]- All Rights Reserved
--- NOTE | 2017-04-18 13:07 | ER Document Report ---
ED Flu Like - General Chief Complaint: Flu Symptoms Stated Complaint: NAUSEA VOMITING Time Seen by Provider: 04/18/17 11:35 Mode of Arrival: Ambulatory Information source: Patient Notes: Patient complains of having cough cold congestion for several days. She also states that she has swollen and painful hands bilaterally. She states she is still having diarrhea and she has been feeling weak. She states that she has been to the hospital and seen her physician. Nothing appears to make the symptoms better or worse. No relief with [id number] medications. The pain radiates throughout her body. It is constant moderate. Patient denies any known rashes. TRAVEL OUTSIDE OF THE [place] IN LAST 30 DAYS: No - Related Data Allergies/Adverse Reactions: cephalexin [From Keflex] Allergy (Verified 04/18/17 09:46) rash Penicillins Allergy (Verified 04/18/17 09:46) Past Medical History - General Information source: Patient - Social History Smoking Status: Current Every Day Smoker Chew tobacco use (# tins/day): No Frequency of alcohol use: None Drug Abuse: None Family History: Arthritis, CAD, COPD, CVA, DM, Hyperlipidemia, Hypertension, Thyroid Disfunction, Other - Depression, anxiety, and schizophrenia Patient has suicidal ideation: No Patient has homicidal ideation: No Pulmonary Medical History: Reports: Hx Bronchitis Renal/ Medical History: Denies: Hx Peritoneal Dialysis Skin Medical History: Reports Hx Cellulitis Psychiatric Medical History: Reports: Hx Anxiety, Hx Bipolar Disorder, Hx Depression, Hx Post Traumatic Stress Disorder, Hx Schizophrenia Past Surgical History: Reports: Hx Section - x1, Hx Oral Surgery - wisdom teeth - Immunizations Immunizations up to date: No Hx Diphtheria, Pertussis, Tetanus Vaccination: No Review of Systems - Review of Systems Constitutional: Chills, Fever, Malaise, Recent illness EENT: Nose congestion, Nose discharge Cardiovascular: Palpitations Respiratory: Cough Gastrointestinal: Diarrhea -: Yes All other systems reviewed and negative Physical Exam - Vital signs Vitals: Temp Pulse Resp BP Pulse Ox 97.6 F 91 20 125/75 97 04/18/17 10:03 04/18/17 10:03 04/18/17 10:03 04/18/17 10:03 04/18/17 10:03 Interpretation: Normal - General General appearance: Appears well, Alert - HEENT Head: Normocephalic, Atraumatic Eyes: Normal Pupils: PERRL - Respiratory Respiratory status: No respiratory distress Chest status: Nontender Breath sounds: Normal Chest palpation: Normal - Cardiovascular Rhythm: Regular Heart sounds: Normal auscultation Murmur: No - Abdominal Inspection: Normal Distension: No distension Bowel sounds: Normal Tenderness: Nontender Organomegaly: No organomegaly - Back Back: Normal, Nontender - Extremities General upper extremity: Normal inspection, Normal color, Normal temperature, Other - Both hands bilaterally are diffusely tender and appear to have limited range of motion of finger and wrist joint. Inspection of bilateral hands is unremarkable. I do not appreciate swelling edema. I do not appreciate any erythema or induration. There is no increased temperature. General lower extremity: Normal inspection, Nontender, Normal color, Normal ROM , Normal temperature, Normal weight bearing. No: Katie's sign - Neurological Neuro grossly intact: Yes Cognition: Normal Orientation: AAOx4 [place] Coma Scale Eye Opening: Spontaneous [place] Coma Scale Verbal: Oriented [place] Coma Scale Motor: Obeys Commands Jt Coma Scale Total: 15 Speech: Normal Motor strength normal: LUE, RUE, LLE, RLE Sensory: Normal - Psychological Associated symptoms: Normal affect, Normal mood - Skin Skin Temperature: Warm Skin Moisture: Dry Skin Color: Normal Course - Vital Signs Vital signs: Temp Pulse Resp BP Pulse Ox 97.6 F 91 20 125/75 97 04/18/17 10:03 04/18/17 10:03 04/18/17 10:03 04/18/17 10:03 04/18/17 10:03 - Laboratory Result Diagrams: 04/18/17 11:45 04/18/17 11:45 Laboratory results interpreted by me: 04/18/17 04/18/17 04/18/17 11:45 11:45 11:45 WBC 3.8 L RDW 15.1 H Seg Neutrophils % 40.6 L Eosinophils % 11.2 H Absolute Neutrophils 1.5 L BUN 6 L AST 96 H ALT 97 H Total Protein 5.9 L Albumin 3.3 L Urine Blood SMALL H Urine Urobilinogen 2.0 H - Diagnostic Test Radiology reviewed: Image reviewed, Reports reviewed - Chest x-ray shows no evidence of infiltrate or edema Discharge - Discharge Clinical Impression: URI (upper respiratory infection) Qualifiers: URI type: unspecified URI Qualified Code(s): J06.9 - Acute upper respiratory infection, unspecified Condition: Stable Disposition: HOME, SELF-CARE Instructions: Upper Respiratory Illness ([facility]) Prescriptions: Codeine/Promethazine HCl [Promethazine-Codeine Syrup] 10 ml PO Q4 PRN #1 bottle PRN Reason: Levofloxacin [Levaquin 750 mg Tablet] 750 mg PO DAILY #5 tablet Forms: Return to Work
[2017-04-18 13:23] VITALS: BP 117/76
== END 2017-04-18 13:24 | disposition home or self-care (01) ==
LOC: ER 09:45
DX: J06.9 Acute upper respiratory infection, unspecified (principal); R05 Cough; M79.641 Pain in right hand; M79.642 Pain in left hand; R19.7 Diarrhea, unspecified; R53.1 Weakness; R50.9 Fever, unspecified; R53.81 Other malaise; R09.81 Nasal congestion; J34.89 Other specified disorders of nose and nasal sinuses; R00.2 Palpitations; F17.200 Nicotine dependence, unspecified, uncomplicated; Z88.1 Allergy status to other antibiotic agents; Z88.0 Allergy status to penicillin
CPT/HCPCS: 99284; 36415; 85025; 81025; 80053; 81001; 71046; J3490

== ENCOUNTER 2017-05-21 17:11 | Emergency (ER) | payer MEDICAID | END 2017-05-21 17:23 | disposition left against medical advice (07) | LOC: ER 17:11 | DX: Z53.21 Procedure and treatment not carried out due to patient leaving prior to being seen by health care provider (principal); R05 Cough ==

== ENCOUNTER 2017-05-31 18:17 | Emergency (ER) | payer MEDICAID ==
[2017-05-31 18:42] LABS: ABSOLUTE BASOPHILS # (AUTO) 0.1 10^3/uL (0.0-0.2); ABSOLUTE EOSINOPHILS # (AUTO) 0.2 10^3/uL (0.0-0.6); ABSOLUTE LYMPHOCYTES (AUTO) 4.9 10^3/uL (0.5-4.7); ABSOLUTE MONOCYTES (AUTO) 0.6 10^3/uL (0.1-1.4); ABSOLUTE NEUT (AUTO) 4.1 10^3/uL (1.7-8.2); BASOPHILS % (AUTO) 0.5 % (0-2); HEMATOCRIT 42.1 % (36.0-47.0); LYMPHOCYTES % (AUTO) 49.7 % (13-45); MEAN CORPUSCULAR HEMOGLOBIN 28.4 pg (27.0-33.4); MEAN CORPUSCULAR HGB CONC 33.3 g/dL (32.0-36.0); MEAN CORPUSCULAR VOLUME 85 fl (80-97); MONOCYTES % (AUTO) 6.1 % (3-13); PLATELET COUNT 375 10^3/uL (150-450); RED BLOOD COUNT 4.94 10^6/uL (3.72-5.28); RED CELL DISTRIBUTION WIDTH 14.4 % (11.5-14.0); SEGMENTED NEUTROPHILS % (AUTO) 41.7 % (42-78); TOTAL CELLS COUNTED % (AUTO) 100 %; WHITE BLOOD COUNT 9.9 10^3/uL (4.0-10.5)
[2017-05-31] MEDS ORDERED: NORMAL SALINE 1000 ML 1,000 ML IV ONE (18:47)
--- NOTE | 2017-05-31 18:58 | RADIOLOGY REPORT (SQ) ---
EXAM DESCRIPTION: CHEST 2 VIEWS COMPLETED DATE/TIME: 05/31/2017 6:47 pm REASON FOR STUDY: cp COMPARISON: 04/18/2017 EXAM PARAMETERS: NUMBER OF VIEWS: two views TECHNIQUE: Digital Frontal and Lateral radiographic views of the chest acquired. RADIATION DOSE: NA LIMITATIONS: none FINDINGS: LUNGS AND PLEURA: No opacities, masses or pneumothorax. No pleural effusion. MEDIASTINUM AND HILAR STRUCTURES: No masses or contour abnormalities. HEART AND VASCULAR STRUCTURES: Heart normal size. No evidence for failure. BONES: No acute findings. HARDWARE: None in the chest. OTHER: No other significant finding. IMPRESSION: NO ACUTE RADIOGRAPHIC FINDING IN THE CHEST. TECHNICAL DOCUMENTATION: JOB ID: [id number] [employer]- All Rights Reserved Reading location - IP/workstation name: [email or web address]
[2017-05-31 19:03] LABS: ANION GAP 10 (5-19); BLOOD UREA NITROGEN 7 mg/dL (7-20); CALCIUM 9.5 mg/dL (8.4-10.2); CARBON DIOXIDE 29 mmol/L (22-30); CHLORIDE 105 mmol/L (98-107); GLUCOSE 88 mg/dL (75-110); POTASSIUM 3.8 mmol/L (3.6-5.0); SODIUM 143.7 mmol/L (137-145)
[2017-05-31 20:55] LABS: APPEARANCE,URINE SLIGHTLY-CLOUDY; BILIRUBIN,URINE NEGATIVE (NEGATIVE); COLOR,URINE YELLOW; GLUCOSE, URINE NEGATIVE (NEGATIVE); KETONES,URINE NEGATIVE (NEGATIVE); LEUKOCYTE ESTERASE,URINE TRACE (NEGATIVE); NITRITE,URINE NEGATIVE (NEGATIVE); PROTEIN,URINE 30 mg/dL (NEGATIVE)
[2017-05-31 20:59] LABS: URINE AMPHETAMINES SCREEN NEGATIVE; URINE BARBITURATES SCREEN NEGATIVE; URINE BENZODIAZEPINES SCREEN NEGATIVE; URINE COCAINE SCREEN NEGATIVE; URINE MARIJUANA (THC) SCREEN NEGATIVE; URINE METHADONE SCREEN NEGATIVE; URINE PHENCYCLIDINE SCREEN NEGATIVE
--- NOTE | 2017-05-31 21:49 | EKG REPORT ---
SEVERITY:- NORMAL ECG - SINUS RHYTHM : Confirmed by: Franco Hopkins 31-May-2017 21:48:49
--- NOTE | 2017-05-31 22:14 | ER Document Report ---
ED General - General Chief Complaint: Near Syncope Stated Complaint: CHEST PAIN Time Seen by Provider: 05/31/17 18:26 TRAVEL OUTSIDE OF THE [place] IN LAST 30 DAYS: No - HPI Patient complains to provider of: Near-syncope chest pain Notes: Patient was visiting her father here in ER who is also a patient when the patient began hyperventilating I was called into the room #17 patient was located patient states she just returned from smoking having substernal chest pain patient was hyperventilating and tachypneic most of the HPI otherwise was unobtainable patient looked have a full-blown panic attack ongoing. Patient was able to states she has history of anxiety denies any other etiologies at this time. We placed patient in my procedure at the time past patient was reevaluated patient currently at this time is complaining of not being able to see and not be able to move her lower extremities numbness and tingling all over. - Related Data Allergies/Adverse Reactions: cephalexin [From Keflex] Allergy (Verified 05/31/17 18:41) rash Penicillins Allergy (Verified 05/31/17 18:41) Past Medical History - Social History Smoking Status: Current Every Day Smoker Chew tobacco use (# tins/day): No Frequency of alcohol use: Heavy Drug Abuse: None Family History: Arthritis, CAD, COPD, CVA, DM, Hyperlipidemia, Hypertension, Thyroid Disfunction, Other - Depression, anxiety, and schizophrenia Patient has suicidal ideation: No Patient has homicidal ideation: No Pulmonary Medical History: Reports: Hx Bronchitis Renal/ Medical History: Denies: Hx Peritoneal Dialysis Skin Medical History: Reports Hx Cellulitis Psychiatric Medical History: Reports: Hx Anxiety, Hx Bipolar Disorder, Hx Depression, Hx Post Traumatic Stress Disorder, Hx Schizophrenia Past Surgical History: Reports: Hx Section - x1, Hx Oral Surgery - wisdom teeth - Immunizations Immunizations up to date: No Hx Diphtheria, Pertussis, Tetanus Vaccination: No Review of Systems - Review of Systems Constitutional: No symptoms reported EENT: No symptoms reported Cardiovascular: Chest pain, Other - Hyperventilating possible panic attack Respiratory: No symptoms reported Gastrointestinal: No symptoms reported Genitourinary: No symptoms reported Female Genitourinary: No symptoms reported Musculoskeletal: No symptoms reported Skin: No symptoms reported Hematologic/Lymphatic: No symptoms reported Neurological/Psychological: No symptoms reported -: Yes All other systems reviewed and negative Physical Exam - Vital signs Vitals: Resp Pulse Ox 17 99 05/31/17 18:24 05/31/17 18:24 Interpretation: Normal - General General appearance: Appears well, Alert - HEENT Head: Normocephalic, Atraumatic Eyes: Normal Conjunctiva: Normal Cornea: Normal Extraocular movements intact: Yes Pupils: PERRL Notes: Patient doing evaluation stating that she cannot see multiple times. I did take the patient's chart at the end of my examination and the neck of motion as I was dropping the chart at the patient's face. Patient did make the appropriate response blinking her eyes and withdrawing away. This indicates the patient can see - Respiratory Respiratory status: No respiratory distress Chest status: Tender - Reproducible chest wall pain Breath sounds: Normal Chest palpation: Normal - Cardiovascular Rhythm: Regular Heart sounds: Normal auscultation Murmur: No - Abdominal Inspection: Normal Distension: No distension Bowel sounds: Normal Tenderness: Nontender Organomegaly: No organomegaly - Back Back: Normal, Nontender - Extremities General upper extremity: Normal inspection, Nontender, Normal color, Normal ROM , Normal temperature General lower extremity: Normal inspection, Nontender, Normal color, Normal ROM , Normal temperature, Normal weight bearing. No: Katie's sign - Neurological Neuro grossly intact: Yes Cognition: Normal Orientation: AAOx4 Jt Coma Scale Eye Opening: Spontaneous Jt Coma Scale Verbal: Oriented [place] Coma Scale Motor: Obeys Commands [place] Coma Scale Total: 15 Speech: Normal Motor strength normal: LUE, RUE, LLE, RLE Sensory: Normal - Psychological Associated symptoms: Normal affect, Normal mood - Skin Skin Temperature: Warm Skin Moisture: Dry Skin Color: Normal Course - Re-evaluation Re-evalutation: 05/31/17 23:24 Patient was observed in ER after my evaluation patient did mention to the nursing staff the patient did drink prior to arrival. Patient laboratory studies does confirm alcohol ingestion. No signs of any significant pathology. Patient will be discharged on follow-up with primary care physician. - Vital Signs Vital signs: Temp Pulse Resp BP Pulse Ox 98.0 F 103 H 13 106/57 L 94 05/31/17 18:34 05/31/17 18:34 05/31/17 22:21 05/31/17 22:01 05/31/17 22:21 - Laboratory Result Diagrams: 05/31/17 18:20 04/05/18 18:20 Laboratory results interpreted by me: 05/31/17 05/31/17 18:20 20:17 RDW 14.4 H Seg Neutrophils % 41.7 L Lymphocytes % 49.7 H Absolute Lymphocytes 4.9 H Urine Protein 30 H Urine Blood SMALL H Urine Urobilinogen 2.0 H Ur Leukocyte Esterase TRACE H Discharge - Discharge Clinical Impression: Near syncope, Alcohol ingestion Disposition: HOME, SELF-CARE Instructions: Near Syncopal Episode ([facility]), Panic Attack ([facility]) Additional Instructions: I believe your symptoms night were due to a panic attack. Please avoid any excessive alcohol use. Take Tylenol and Motrin for pain. Would recommend drinking plenty of fluids to stay hydrated. Return to ER if symptoms worsen. Referrals: BENEDICTO WOLFF MD [Primary Care Provider] - Follow up as needed
[2017-05-31 22:15] VITALS: BP 106/57
== END 2017-05-31 22:20 | disposition home or self-care (01) ==
LOC: ER 18:17
DX: R55 Syncope and collapse (principal); Z72.89 Other problems related to lifestyle; R07.89 Other chest pain; R06.4 Hyperventilation; F17.200 Nicotine dependence, unspecified, uncomplicated; Z88.1 Allergy status to other antibiotic agents; Z88.0 Allergy status to penicillin
CPT/HCPCS: 99285; 96360; 36415; 80307 ×2; 84702; 85025; 80048; 81001; 84484; 71046; 93005; 93010; J7030

== ENCOUNTER 2017-06-28 16:08 | Emergency (ER) | payer MEDICAID ==
[2017-06-28] MEDS ORDERED: ACETAMINOPHEN 325 MG TABLET PO ONE (16:41)
--- NOTE | 2017-06-28 16:44 | ER Document Report ---
ED Medical Screen (RME) - General Chief Complaint: Abdominal Pain Stated Complaint: ABSCESS Time Seen by Provider: 06/28/17 16:41 Notes: RAPID MEDICAL EVALUATION DISCLOSURE I have seen this patient as part of a Rapid Medical Evaluation and, if applicable, placed any initially appropriate orders. The patient will be seen and fully evaluated, including a full history and physical exam, by a provider ( in Main ED or Fast Track) when a room becomes available. 26-year-old female here with 2 days of urinary frequency dysuria and left flank pain without hematuria. She also complains of some suprapubic pain however this is been ongoing for the past 2 years ever since her and is not a new complaint. She also complains of an area of redness on her right breast that started 1-2 days ago. There is no drainage. No fevers or chills. EXAM Mild localized erythema to the right breast superior of the area (Room 1 PIT RN chaperoned this exam) Mild tenderness to light palpation of left flank superficial structures ( musculature) Moderate suprapubic tenderness to palpation No peritoneal signs TRAVEL OUTSIDE OF THE [place] IN LAST 30 DAYS: No - Related Data Allergies/Adverse Reactions: cephalexin [From Keflex] Allergy (Verified 06/28/17 16:12) rash Penicillins Allergy (Verified 06/28/17 16:12) Past Medical History - Social History Chew tobacco use (# tins/day): No Frequency of alcohol use: None Drug Abuse: None Pulmonary Medical History: Reports: Hx Bronchitis Renal/ Medical History: Denies: Hx Peritoneal Dialysis Skin Medical History: Reports Hx Cellulitis Psychiatric Medical History: Reports: Hx Anxiety, Hx Bipolar Disorder, Hx Depression, Hx Post Traumatic Stress Disorder, Hx Schizophrenia Past Surgical History: Reports: Hx Section - x1, Hx Oral Surgery - wisdom teeth - Immunizations Immunizations up to date: No Hx Diphtheria, Pertussis, Tetanus Vaccination: No Physical Exam - Vital signs Vitals: Temp Pulse Resp BP Pulse Ox 98.5 F 93 17 121/63 98 06/28/17 16:18 06/28/17 16:18 06/28/17 16:18 06/28/17 16:18 06/28/17 16:18 Course - Vital Signs Vital signs: Temp Pulse Resp BP Pulse Ox 98.5 F 93 17 121/63 98 06/28/17 16:18 06/28/17 16:18 06/28/17 16:18 06/28/17 16:18 06/28/17 16:18
[2017-06-28 17:25] LABS: APPEARANCE,URINE CLOUDY; BILIRUBIN,URINE NEGATIVE (NEGATIVE); COLOR,URINE YELLOW; GLUCOSE, URINE NEGATIVE (NEGATIVE); KETONES,URINE NEGATIVE (NEGATIVE); LEUKOCYTE ESTERASE,URINE TRACE (NEGATIVE); NITRITE,URINE NEGATIVE (NEGATIVE); PROTEIN,URINE NEGATIVE (NEGATIVE)
[2017-06-28] MEDS ORDERED: LIDOCAINE 4%/TETRACAINE 0.5%/EPI 0.18% 5 ML TOPICAL SOLN TOP ONE (18:03)
[2017-06-28] MEDS ORDERED: ONDANSETRON 4 MG TAB.RAPDIS PO ONE (18:03)
[2017-06-28] MEDS ORDERED: NORMAL SALINE 1000 ML 1,000 ML IV ONE (18:03)
--- NOTE | 2017-06-28 18:06 | ER Document Report ---
ED GI/ - General Chief Complaint: Abdominal Pain Stated Complaint: ABSCESS Time Seen by Provider: 06/28/17 16:41 Mode of Arrival: Ambulatory Information source: Patient Notes: 26-year-old female complaining of a severe left flank pain that radiates into her left side of her abdomen for 2 days, nausea. She has had urinary frequency but no hematuria. No history kidney stone. No diarrhea. No fever or chills. She also has an abscess in her right breast to this is the third one that she has had. This 1 has not drained on its own. Urinalysis does not show an infection and she is not . At this time I adding blood work and a CT renal stone protocol. No vaginal discharge or odor. No dyspareunia TRAVEL OUTSIDE OF THE [place] IN LAST 30 DAYS: No - Related Data Allergies/Adverse Reactions: cephalexin [From Keflex] Allergy (Verified 06/28/17 16:12) rash Penicillins Allergy (Verified 06/28/17 16:12) Past Medical History - General Information source: Patient - Social History Smoking Status: Current Some Day Smoker Chew tobacco use (# tins/day): No Frequency of alcohol use: None Drug Abuse: None Lives with: Spouse/Significant other Family History: Arthritis, CAD, COPD, CVA, DM, Hyperlipidemia, Hypertension, Thyroid Disfunction, Other - Depression, anxiety, and schizophrenia Patient has suicidal ideation: No Patient has homicidal ideation: No Pulmonary Medical History: Reports: Hx Bronchitis Renal/ Medical History: Denies: Hx Peritoneal Dialysis Skin Medical History: Reports Hx Cellulitis Psychiatric Medical History: Reports: Hx Anxiety, Hx Bipolar Disorder, Hx Depression, Hx Post Traumatic Stress Disorder, Hx Schizophrenia Past Surgical History: Reports: Hx Section - x1, Hx Oral Surgery - wisdom teeth - Immunizations Immunizations up to date: No Hx Diphtheria, Pertussis, Tetanus Vaccination: No Review of Systems - Review of Systems Constitutional: No symptoms reported EENT: No symptoms reported Cardiovascular: No symptoms reported Respiratory: No symptoms reported Gastrointestinal: See HPI Genitourinary: No symptoms reported Female Genitourinary: No symptoms reported Musculoskeletal: See HPI Skin: See HPI Hematologic/Lymphatic: No symptoms reported Neurological/Psychological: No symptoms reported Physical Exam - Vital signs Vitals: Temp Pulse Resp BP Pulse Ox 98.5 F 93 17 121/63 98 06/28/17 16:18 06/28/17 16:18 06/28/17 16:18 06/28/17 16:18 06/28/17 16:18 Interpretation: Normal - General General appearance: Appears well, Alert - HEENT Head: Normocephalic, Atraumatic Eyes: Normal Conjunctiva: Normal Pupils: PERRL Mucous membranes: Dry Neck: Supple. No: Lymphadenopathy - Respiratory Respiratory status: No respiratory distress Chest status: Nontender Breath sounds: Normal Chest palpation: Normal - Cardiovascular Rhythm: Regular Heart sounds: Normal auscultation Murmur: No - Abdominal Inspection: Normal Distension: No distension Bowel sounds: Normal Tenderness: Tender - left upper to lower Organomegaly: No organomegaly. No: Hepatomegaly, Splenomegaly - Back Back: Normal, Tender - left flank area. No: CVA tenderness, Vertebra tenderness - Extremities General upper extremity: Normal inspection, Nontender, Normal color, Normal ROM , Normal temperature General lower extremity: Normal inspection, Nontender, Normal color, Normal ROM , Normal temperature, Normal weight bearing. No: Katie's sign - Neurological Neuro grossly intact: Yes Cognition: Normal Orientation: AAOx4 Jt Coma Scale Eye Opening: Spontaneous Jt Coma Scale Verbal: Oriented Jt Coma Scale Motor: Obeys Commands [place] Coma Scale Total: 15 Speech: Normal Motor strength normal: LUE, RUE, LLE, RLE Sensory: Normal - Psychological Associated symptoms: Normal affect, Normal mood - Skin Skin Temperature: Warm Skin Moisture: Dry Skin Color: Normal Skin irregularity: Abscess - right breast fluctuant, 1 cm Course - Re-evaluation Re-evalutation: 06/28/17 19:45 CT is negative urinalysis has 6 RBCs and WBCs urine culture pending. CBC and chemistry are normal. 06/28/17 19:47 Patient is hungry and eating something. Abdomen is nontender. Left flank pain is record press tender and increases with movement and twisting - Vital Signs Vital signs: Temp Pulse Resp BP Pulse Ox 98.5 F 93 17 121/63 98 06/28/17 16:18 06/28/17 16:18 06/28/17 16:18 06/28/17 16:18 06/28/17 16:18 - Laboratory Result Diagrams: 06/28/17 18:31 06/28/17 18:31 Laboratory results interpreted by me: 06/28/17 06/28/17 06/28/17 16:48 18:31 18:31 RDW 14.8 H BUN 6 L AST 13 L Total Protein 6.2 L Urine Blood MODERATE H Urine Urobilinogen 4.0 H Ur Leukocyte Esterase TRACE H Procedures - Incision and Drainage Right Chest Time completed: 20:03 Type: Simple Anesthetic type: 1% Lidocaine mL's of anesthetic: 2 Blade size: 11 I&D procedure: Betadine prep applied Incision Method: Incision made by scalpel Amount/type of drainage: large pus, 4 x 4 corner packing Discharge - Discharge Clinical Impression: Right breast abscess I&D, Left flank pain Abdominal pain Qualifiers: Abdominal location: left lower quadrant Qualified Code(s): R10.32 - Left lower quadrant pain Condition: Good Disposition: HOME, SELF-CARE Instructions: Abdominal Pain ([facility]), Flank Pain ([facility]), Trimethoprim-Sulfa ([facility]) , Ibuprofen (General) ([facility]), Abscess ([facility]) Additional Instructions: Warm compress to right breast Tylenol Motrin Leave the dressing on for 2 days and remove and use washcloth vigorously with soap and water in the shower Return to the emergency worsening symptoms Copy of all lab were given to you follow-up with your primary care doctor Wound culture is pending Urine culture is pending Prescriptions: Ibuprofen [Motrin 800 mg Tablet] 800 mg PO Q8HP PRN #30 tablet PRN Reason: Sulfamethoxazole/Trimethoprim [Sulfamethoxazole-Tmp Ds Tablet] 1 each PO BID # 14 tablet Referrals: BENDEICTO WOLFF MD [ACTIVE STAFF] - Follow up as needed
[2017-06-28] MEDS ORDERED: KETOROLAC TROMETHAMINE INJ/PF 30 MG/1 ML SDV IV ONE (18:07)
[2017-06-28 18:53] LABS: ABSOLUTE EOSINOPHILS # (AUTO) 0.3 10^3/uL (0.0-0.6); ABSOLUTE LYMPHOCYTES (AUTO) 3.8 10^3/uL (0.5-4.7); ABSOLUTE MONOCYTES (AUTO) 0.5 10^3/uL (0.1-1.4); ABSOLUTE NEUT (AUTO) 4.1 10^3/uL (1.7-8.2); BASOPHILS % (AUTO) 0.6 % (0-2); EOSINOPHILS % (AUTO) 2.9 % (0-6); HEMATOCRIT 37.4 % (36.0-47.0); HEMOGLOBIN 12.6 g/dL (12.0-15.5); LYMPHOCYTES % (AUTO) 43.2 % (13-45); MEAN CORPUSCULAR HEMOGLOBIN 28.7 pg (27.0-33.4); MEAN CORPUSCULAR HGB CONC 33.7 g/dL (32.0-36.0); MEAN CORPUSCULAR VOLUME 85 fl (80-97); MONOCYTES % (AUTO) 6.1 % (3-13); PLATELET COUNT 322 10^3/uL (150-450); RED BLOOD COUNT 4.39 10^6/uL (3.72-5.28); RED CELL DISTRIBUTION WIDTH 14.8 % (11.5-14.0); SEGMENTED NEUTROPHILS % (AUTO) 47.2 % (42-78); TOTAL CELLS COUNTED % (AUTO) 100 %; WHITE BLOOD COUNT 8.8 10^3/uL (4.0-10.5)
[2017-06-28 19:07] LABS: ALANINE AMINOTRANSFERASE 12 U/L (9-52); ALBUMIN 3.5 g/dL (3.5-5.0); ALKALINE PHOSPHATASE 66 U/L (38-126); ANION GAP 9 (5-19); ASPARTATE AMINO TRANSFERASE 13 U/L (14-36); BILIRUBIN,DIRECT 0.2 mg/dL (0.0-0.4); BILIRUBIN,TOTAL 0.3 mg/dL (0.2-1.3); BLOOD UREA NITROGEN 6 mg/dL (7-20); CALCIUM 8.9 mg/dL (8.4-10.2); CARBON DIOXIDE 28 mmol/L (22-30); CHLORIDE 106 mmol/L (98-107); GLUCOSE 94 mg/dL (75-110); LIPASE 90.9 U/L (23-300); SODIUM 143.1 mmol/L (137-145); TOTAL PROTEIN 6.2 g/dL (6.3-8.2)
--- NOTE | 2017-06-28 19:37 | RADIOLOGY REPORT (SQ) ---
EXAM DESCRIPTION: CT LTD RENAL STONE PROTOCOL ON COMPLETED DATE/TIME: 06/28/2017 7:16 pm REASON FOR STUDY: left flank and LLQ abd pain COMPARISON: 04/04/2014 TECHNIQUE: CT scan of the abdomen and pelvis performed without intravenous or oral contrast. Images reviewed with lung, soft tissue, and bone windows. Reconstructed coronal and sagittal MPR images revi ewed. All images stored on PACS. All CT scanners at this facility use dose modulation, iterative reconstruction, and/or weight based d osing when appropriate to reduce radiation dose to as low as reasonably achievable (ALARA). [facility]: Dose Right [facility]: CareDose [facility]: Dose Right [facility]: Teradose 4D [facility]: Smart iSoccer RADIATION DOSE: CT Rad equipment meets quality standard of care and radiation dose reduction techniq ues were employed. CTDIvol: 15.2 mGy. DLP: 872 mGy-cm.mGy. LIMITATIONS: None. FINDINGS: LOWER CHEST: No significant findings. No nodules or infiltrates. NON-CONTRASTED LIVER, SPLEEN, ADRENALS: Evaluation limited by lack of IV contrast. No identified sign ificant masses. PANCREAS: No masses. No peripancreatic inflammatory changes. GALLBLADDER: No identified stones by CT criteria. No inflammatory changes to suggest cholecystitis. RIGHT KIDNEY AND URETER: No suspicious masses. Assessment limited by lack of IV contrast. There is a tiny nonobstructing intrarenal calculus. No hydronephrosis or hydroureter. LEFT KIDNEY AND URETER: No suspicious masses. Assessment limited by lack of IV contrast. No signifi cant calcifications. No hydronephrosis or hydroureter. AORTA AND RETROPERITONEUM: No aneurysm. No retroperitoneal masses or adenopathy. BOWEL AND PERITONEAL CAVITY: No obvious masses or inflammatory changes. No free fluid. APPENDIX: Normal. PELVIS, BLADDER, AND ABDOMINAL WALL:No abnormal masses. No free fluid. Bladder normal. BONES: No significant findings. OTHER: No other significant finding. IMPRESSION: There is a tiny intrarenal calculus in the right kidney. There is no ureteral stone or obstruction. There are no acute findings in the abdomen or pelvis. COMMENT: Quality ID # [id number]: Final reports with documentation of one or more dose reduction techniques (e.g., Automated exposure control, adjustment of the mA and/or kV according to patient size, use of iterative reconstruction technique) TECHNICAL DOCUMENTATION: JOB ID: [id number] [employer]- All Rights Reserved Reading location - IP/workstation name: [email or web address]
[2017-06-28] MEDS ORDERED: SULFAMETHOXAZOLE/TRIMETHOPRIM 800-160 MG TABLET PO ONE (20:02)
[2017-06-28 20:25] VITALS: BP 132/68
== END 2017-06-28 20:25 | disposition home or self-care (01) ==
LOC: ER 16:08
PROC: 0H95XZZ Drainage of Chest Skin, External Approach (ICD-10-PCS; principal; 2017-06-28)
DX: L02.213 Cutaneous abscess of chest wall (principal); R10.32 Left lower quadrant pain; R11.0 Nausea; F17.200 Nicotine dependence, unspecified, uncomplicated; Z88.0 Allergy status to penicillin
CPT/HCPCS: 99284; 96361; 96374; 36415; 87086; 87070; 87205; 83690; 85025; 81025; 87075; 87077; 80053; 81001; 87186; 10060; 76380; J3490 ×3; S0119; J1885; J7030

== ENCOUNTER 2017-06-29 01:34 | Inpatient (IN) | payer MEDICAID ==
[2017-06-29] MEDS ORDERED: NORMAL SALINE 1000 ML 1,000 ML IV ONE (01:48)
--- NOTE | 2017-06-29 01:53 | ER Document Report ---
ED Medical Screen (RME) - General Chief Complaint: Fever Stated Complaint: POSSIBLE ALLERGIC REACTION Time Seen by Provider: 06/29/17 01:48 Mode of Arrival: Ambulatory Information source: Patient Notes: 26-year-old patient was seen earlier tonight for right breast abscess that was incised, given Septra, labs were normal, she also complained of left flank and left-sided abdominal pain. The urine was negative the CT limited renal stone protocol was negative. She returns tonight because at 10:00 she developed headache and fever of 101.2. She states the last time she had a breast abscess her temperature went up to 103. She has done some vomiting. TRAVEL OUTSIDE OF THE [place] IN LAST 30 DAYS: No - Related Data Allergies/Adverse Reactions: cephalexin [From Keflex] Allergy (Verified 06/28/17 16:12) rash Penicillins Allergy (Verified 06/28/17 16:12) Past Medical History Pulmonary Medical History: Reports: Hx Bronchitis Renal/ Medical History: Denies: Hx Peritoneal Dialysis Skin Medical History: Reports Hx Cellulitis Psychiatric Medical History: Reports: Hx Anxiety, Hx Bipolar Disorder, Hx Depression, Hx Post Traumatic Stress Disorder, Hx Schizophrenia Past Surgical History: Reports: Hx Section - x1, Hx Oral Surgery - wisdom teeth - Immunizations Immunizations up to date: No Hx Diphtheria, Pertussis, Tetanus Vaccination: No Physical Exam - Vital signs Vitals: Temp Pulse Resp BP Pulse Ox 98.9 F 141 H 18 127/77 H 98 06/29/17 01:35 06/29/17 01:35 06/29/17 01:35 06/29/17 01:35 06/29/17 01:35 Course - Vital Signs Vital signs: Temp Pulse Resp BP Pulse Ox 98.9 F 141 H 18 127/77 H 98 06/29/17 01:35 06/29/17 01:35 06/29/17 01:35 06/29/17 01:35 06/29/17 01:35
[2017-06-29] MEDS ORDERED: DIPHENHYDRAMINE HCL 50 MG/ML VIAL IV ONE ×2 (02:04→14:36)
[2017-06-29] MEDS ORDERED: LORAZEPAM INJ 2 MG/1 ML VIAL IV ONE (02:05)
--- NOTE | 2017-06-29 02:11 | ER Document Report ---
ED General - General Chief Complaint: Fever Stated Complaint: POSSIBLE ALLERGIC REACTION Time Seen by Provider: 06/29/17 01:48 Mode of Arrival: Ambulatory Notes: Patient is a 26-year-old female who presents with complaint of developing redness and flushing throughout and then burning in her eyes. She said this started after she took Bactrim. She was seen earlier today and diagnosed the breast abscess. This was incised and drained and she was started on the Bactrim. She says she has had similar reaction to antibiotics in the past but she cannot read which antibiotic it was. She also spiked a fever at home of 103. She also was worked up because of bilateral flank pain. Patient says she has chronic intermittent right-sided flank pain. She does start to affect her left side as well over the course of the last week. She had a CT scan which was negative. Urinalysis was negative. She did not have a leukocytosis at time of discharge. Patient has no other complaints at this time. TRAVEL OUTSIDE OF THE [place] IN LAST 30 DAYS: No - Related Data Allergies/Adverse Reactions: cephalexin [From Keflex] Allergy (Verified 06/28/17 16:12) rash Penicillins Allergy (Verified 06/28/17 16:12) Past Medical History - General Information source: Patient - Social History Smoking Status: Never Smoker Frequency of alcohol use: None Drug Abuse: None Family History: Arthritis, CAD, COPD, CVA, DM, Hyperlipidemia, Hypertension, Thyroid Disfunction, Other - Depression, anxiety, and schizophrenia Pulmonary Medical History: Reports: Hx Bronchitis Renal/ Medical History: Denies: Hx Peritoneal Dialysis Skin Medical History: Reports Hx Cellulitis Psychiatric Medical History: Reports: Hx Anxiety, Hx Bipolar Disorder, Hx Depression, Hx Post Traumatic Stress Disorder, Hx Schizophrenia Past Surgical History: Reports: Hx Section - x1, Hx Oral Surgery - wisdom teeth - Immunizations Immunizations up to date: No Hx Diphtheria, Pertussis, Tetanus Vaccination: No Review of Systems - Review of Systems Notes: My Normal Review Basic REVIEW OF SYSTEMS: CONSTITUTIONAL : Fever EENT: Denies eye, ear, throat, or mouth pain or symptoms. Denies nasal or sinus congestion. CARDIOVASCULAR: Denies chest pain. Breast: Breast abscess recently drained. RESPIRATORY: Denies cough, cold, or chest congestion. Denies shortness of breath, difficulty breathing, or wheezing. GASTROINTESTINAL: Chronic abdominal pain with worsening left-sided flank pain. Denies nausea, vomiting, or diarrhea. GENITOURINARY: Denies difficulty urinating, painful urination, burning, frequency, or blood in urine. MUSCULOSKELETAL: Denies neck or back pain or joint pain or swelling. SKIN: Denies rash or skin lesions. NEUROLOGICAL: Denies altered mental status or loss of consciousness. Denies headache. Denies weakness or paralysis or loss of use of either side. Denies problems with gait or speech. Denies sensory or motor loss. ALL OTHER SYSTEMS REVIEWED AND NEGATIVE. Physical Exam - Vital signs Vitals: Temp Pulse Resp BP Pulse Ox 98.9 F 141 H 18 127/77 H 98 06/29/17 01:35 06/29/17 01:35 06/29/17 01:35 06/29/17 01:35 06/29/17 01:35 - Notes Notes: General Appearance: Well nourished, alert, cooperative, no acute distress, no obvious discomfort. Patient seems anxious. She is not unwell appearing. Vitals: reviewed, See vital signs table. Head: no swelling or tenderness to the head Eyes: PERRL, EOMI, redness to the conjunctive of both eyes. Mouth: No decreasd moisture Throat: No tonsillar inflammation, No airway obstruction, No lymphadenopathy Lungs: No wheezing, No rales, No rhonci, No accessory muscle use, good air exchange bilaterally. Heart: Tachycardiac rate, Regular rythm, No murmur, no rub Abdomen: Normal BS, soft, No rigidity, mild to moderate diffuse abdominal tenderness palpation, No guarding, no rebound, no abdominal masses, no organomegaly Extremities: strength 5/5 in all extremities, good pulses in all extremities, no swelling or tenderness in the extremities, no edema. Skin: warm, dry, appropriate color, no rash Neuro: speech clear, oriented x 3, normal affect, responds appropriately to questions. Course - Re-evaluation Re-evalutation: 06/29/17 05:06 Patient's heart rate remained high despite receiving Benadryl and Ativan. Ativan did make her sleepy and did cause her to become just mildly hypoxic when she is sleeping and therefore placed on 2 L nasal cannula. Patient initially thought maybe she does have allergic reaction by think this is less likely being the Benadryl did not correct her tachycardia and also patient had spiking fevers remains tachycardic. Suspect that the patient could potentially become septic or have spreading infection from the previously drained breast abscess. I did repeat an ultrasound in the ultrasound shows no evidence of ongoing abscess and it appears that it was drained appropriately. I have ordered vancomycin for the patient. I did speak with the hospitalist who agrees to admit the patient. Dictation of this chart was performed using voice recognition software; therefore, there may be some unintended grammatical errors. - Vital Signs Vital signs: Temp Pulse Resp BP Pulse Ox 98.5 F 141 H 32 H 101/62 87 L 06/29/17 02:05 06/29/17 01:35 06/29/17 04:00 06/29/17 03:01 06/29/17 04:00 - Laboratory Result Diagrams: 06/29/17 02:40 06/29/17 02:40 Laboratory results interpreted by me: 06/29/17 06/29/17 02:40 02:40 RDW 15.0 H Seg Neutrophils % 87.9 H Lymphocytes % 8.8 L Monocytes % 2.7 L Sodium 145.7 H Potassium 3.5 L Glucose 124 H Discharge - Discharge Clinical Impression: Tachycardia, Breast abscess Condition: Stable Disposition: ADMITTED OBSERVATION Admitting Provider: Hospitalist Unit Admitted: Telemetry
[2017-06-29 03:02] LABS: VENOUS BLOOD BASE EXCESS 0.7 mmol/L; VENOUS BLOOD HCO3 26.6 mmol/L (20-32); VENOUS BLOOD PCO2 47.6 mmHg (35-63); VENOUS BLOOD PH 7.37 (7.30-7.42)
[2017-06-29 03:03] LABS: ABSOLUTE LYMPHOCYTES (AUTO) 0.6 10^3/uL (0.5-4.7); ABSOLUTE MONOCYTES (AUTO) 0.2 10^3/uL (0.1-1.4); ABSOLUTE NEUT (AUTO) 6.3 10^3/uL (1.7-8.2); BASOPHILS % (AUTO) 0.1 % (0-2); EOSINOPHILS % (AUTO) 0.5 % (0-6); HEMATOCRIT 39.6 % (36.0-47.0); HEMOGLOBIN 13.4 g/dL (12.0-15.5); LYMPHOCYTES % (AUTO) 8.8 % (13-45); MEAN CORPUSCULAR HEMOGLOBIN 29.2 pg (27.0-33.4); MEAN CORPUSCULAR HGB CONC 33.9 g/dL (32.0-36.0); MEAN CORPUSCULAR VOLUME 86 fl (80-97); MONOCYTES % (AUTO) 2.7 % (3-13); PLATELET COUNT 252 10^3/uL (150-450); RED BLOOD COUNT 4.59 10^6/uL (3.72-5.28); SEGMENTED NEUTROPHILS % (AUTO) 87.9 % (42-78); TOTAL CELLS COUNTED % (AUTO) 100 %; WHITE BLOOD COUNT 7.2 10^3/uL (4.0-10.5)
[2017-06-29 03:15] LABS: ALANINE AMINOTRANSFERASE 17 U/L (9-52); ALBUMIN 3.6 g/dL (3.5-5.0); ALKALINE PHOSPHATASE 67 U/L (38-126); ANION GAP 16 (5-19); ASPARTATE AMINO TRANSFERASE 19 U/L (14-36); BILIRUBIN,DIRECT 0.3 mg/dL (0.0-0.4); BILIRUBIN,TOTAL 0.8 mg/dL (0.2-1.3); BLOOD UREA NITROGEN 8 mg/dL (7-20); CALCIUM 8.7 mg/dL (8.4-10.2); CARBON DIOXIDE 23 mmol/L (22-30); CHLORIDE 107 mmol/L (98-107); GLUCOSE 124 mg/dL (75-110); POTASSIUM 3.5 mmol/L (3.6-5.0); SODIUM 145.7 mmol/L (137-145); TOTAL PROTEIN 6.4 g/dL (6.3-8.2)
[2017-06-29] MEDS ORDERED: VANCOMYCIN HCL INJ 1000 MG VIAL IV ONE (04:42)
--- NOTE | 2017-06-29 04:45 | RADIOLOGY REPORT (SQ) ---
EXAM DESCRIPTION: U/S BREAST UNILATERAL COMPLETE CLINICAL HISTORY: 26 years Female, right breast inflammatory change. Recent abscess drainage. COMPARISON: None. TECHNIQUE: Real-time directed sonographic images of the right breast to evaluate for abscess. FINDINGS: In the area of concern in the right breast at the site of previously drained abscess there is a hypoechoic region without well-circumscribed fluid collection at this time. No other abnormality identified. IMPRESSION: 1. No abscess identified in the area of concern. 2. Hypoechoic region at the site of wound and packing likely represents residual inflammatory/infectious phlegmon postdrainage.
[2017-06-29] MEDS ORDERED: OXYCODONE-ACETAMINOPHEN 5-325 MG TABLET PO PRN (05:01)
[2017-06-29] MEDS ORDERED: ONDANSETRON HCL INJ/PF 4 MG/2 ML SDV IV PRN ×2 (05:01→08:53)
--- NOTE | 2017-06-29 05:17 | PDOC H&P ---
History of Present Illness History of Present Illness: KYLE NIEVES is a 26 year old female patient who presented yesterday morning for cellulitis and left breast abscess. She had incision and drainage of abscess and sent home with Bactrim. Patient came back with fever, generalized burning sensation, hyperemia and injected watery eyes after she took Bactrim. Historically patient has allergy to penicillins. Patient has bipolar disorder and PTSD no other chronic medical conditions .She denied chest pain, diaphoresis, cough, nausea, vomiting, abdominal pain or diarrhea. She has dizziness but denied headache or blurry of vision. Past Medical History Pulmonary Medical History: Reports: Asthma, Bronchitis Psychiatric Medical History: Reports: Bipolar Disorder, Depression, Post Traumatic Stress Disorder Hematology: Reports: Anemia - iron deficiency Past Surgical History Past Surgical History: Reports: Section - x1 Social History Smoking Status: Never Smoker Frequency of Alcohol Use: None Drugs: None Family History Family History: Arthritis, CAD, COPD, CVA, DM, Hyperlipidemia, Hypertension, Thyroid Disfunction, Other - Depression, anxiety, and schizophrenia Parental Family History Reviewed: Yes Children Family History Reviewed: Yes Sibling(s) Family History Reviewed.: Yes Medication/Allergy Home Medications: Gabapentin [Neurontin] 600 mg PO DAILY 05/31/17 Ibuprofen [Motrin 800 mg Tablet] 800 mg PO Q8HP PRN #30 tablet 06/28/17 Sulfamethoxazole/Trimethoprim [Sulfamethoxazole-Tmp Ds Tablet] 1 each PO BID # 14 tablet 06/28/17 Allergies/Adverse Reactions: cephalexin [From Keflex] Allergy (Verified 06/28/17 16:12) rash Penicillins Allergy (Verified 06/28/17 16:12) Review of Systems Constitutional: PRESENT: as per HPI Eyes: PRESENT: as per HPI Cardiovascular: PRESENT: as per HPI Respiratory: PRESENT: as per HPI Gastrointestinal: PRESENT: as per HPI Neurological: PRESENT: as per HPI Psychiatric: PRESENT: as per HPI Physical Exam Vital Signs: Temp Pulse Resp BP Pulse Ox 98.5 F 141 H 32 H 101/62 87 L 06/29/17 02:05 06/29/17 01:35 06/29/17 04:00 06/29/17 03:01 06/29/17 04:00 Intake & Output 06/27/17 06/28/17 06/29/17 06:59 06:59 06:59 Weight 93.6 kg General appearance: PRESENT: mild distress Eye exam: PRESENT: conjunctival injection Respiratory exam: PRESENT: clear to auscultation jacqueline. ABSENT: rales, rhonchi, wheezes Cardiovascular exam: PRESENT: RRR. ABSENT: diastolic murmur, rubs, systolic murmur GI/Abdominal exam: PRESENT: normal bowel sounds, soft. ABSENT: distended, guarding, mass, organolmegaly, rebound, tenderness Neurological exam: PRESENT: alert, awake, oriented to time, oriented to situation Results Laboratory Results: 06/29/17 02:40 06/29/17 02:40 06/29/17 06/29/17 06/29/17 02:40 02:40 02:40 WBC 7.2 RBC 4.59 Hgb 13.4 Hct 39.6 MCV 86 MCH 29.2 MCHC 33.9 RDW 15.0 H Plt Count 252 Seg Neutrophils % 87.9 H Lymphocytes % 8.8 L Monocytes % 2.7 L Eosinophils % 0.5 Basophils % 0.1 Absolute Neutrophils 6.3 Absolute Lymphocytes 0.6 Absolute Monocytes 0.2 Absolute Eosinophils 0.0 Absolute Basophils 0.0 VBG pH VBG pCO2 VBG HCO3 VBG Base Excess Sodium 145.7 H Potassium 3.5 L Chloride 107 Carbon Dioxide 23 Anion Gap 16 BUN 8 Creatinine 0.61 Est GFR ( Amer) > 60 Est GFR (Non-Af Amer) > 60 Glucose 124 H Lactic Acid 1.9 Calcium 8.7 Total Bilirubin 0.8 AST 19 ALT 17 Alkaline Phosphatase 67 Total Protein 6.4 Albumin 3.6 06/29/17 02:40 WBC RBC Hgb Hct MCV MCH MCHC RDW Plt Count Seg Neutrophils % Lymphocytes % Monocytes % Eosinophils % Basophils % Absolute Neutrophils Absolute Lymphocytes Absolute Monocytes Absolute Eosinophils Absolute Basophils VBG pH 7.37 VBG pCO2 47.6 VBG HCO3 26.6 VBG Base Excess 0.7 Sodium Potassium Chloride Carbon Dioxide Anion Gap BUN Creatinine Est GFR ( Amer) Est GFR (Non-Af Amer) Glucose Lactic Acid Calcium Total Bilirubin AST ALT Alkaline Phosphatase Total Protein Albumin Assessment & Plan - Diagnosis (1) Cellulitis and left breast abscess Is this a current diagnosis for this admission?: Yes Plan: Patient has been started on clindamycin and will adjust her antibiotic based on her clinical response and abscess culture results - Time Time Spent: 30 to 50 Minutes - Inpatient Certification Medical Necessity: Need for IV Antibiotics
[2017-06-29] MEDS ORDERED: CLINDAMYCIN 600 MG/D5W RTU 600 MG/50 ML RTUPB IV SCH (06:00)
[2017-06-29] MEDS ORDERED: LANSOPRAZOLE 30 MG TAB.RAP.DR PO SCH (06:00)
[2017-06-29] MEDS ORDERED: CLINDAMYCIN 600 MG/D5W RTU 600 MG/50 ML RTUPB IV ONE (09:00)
[2017-06-29] MEDS ORDERED: LANSOPRAZOLE 30 MG TAB.RAP.DR PO ONE (09:00)
[2017-06-29] MEDS: OXYCODONE-ACETAMINOPHEN 5-325 MG TABLET PO PRN ×3 (09:35→23:09)
[2017-06-29] MEDS: CLINDAMYCIN 600 MG/D5W RTU 600 MG/50 ML RTUPB IV SCH ×2 (13:39→22:59)
[2017-06-29] MEDS ORDERED: PROCHLORPERAZINE EDISYLATE INJ 10 MG/2 ML VIAL IV ONE (14:38)
--- NOTE | 2017-06-29 14:44 | Progress Note ---
Provider Note Provider Note: Patient admitted overnight for left breast cellulitis. Started on IV Clinda which will continue for now. Blood cultures pending. Major complaint this afternoon is headache. Patient has history of migraines. Does not take anything at home. Ordered migraine cocktail. Will continue to monitor.
[2017-06-29] MEDS ORDERED: KETOROLAC TROMETHAMINE INJ/PF 30 MG/1 ML SDV IV ONE (15:15)
[2017-06-30] MEDS ORDERED: LANSOPRAZOLE 30 MG TAB.RAP.DR PO SCH (06:00)
[2017-06-30] MEDS: CLINDAMYCIN 600 MG/D5W RTU 600 MG/50 ML RTUPB IV SCH (06:01)
[2017-06-30] MEDS: OXYCODONE-ACETAMINOPHEN 5-325 MG TABLET PO PRN (06:51)
[2017-06-30 08:14] LABS: ANION GAP 9 (5-19); BLOOD UREA NITROGEN 6 mg/dL (7-20); CALCIUM 8.3 mg/dL (8.4-10.2); CARBON DIOXIDE 23 mmol/L (22-30); CHLORIDE 108 mmol/L (98-107); GLUCOSE 87 mg/dL (75-110); POTASSIUM 3.9 mmol/L (3.6-5.0)
[2017-06-30 08:24] LABS: ABSOLUTE EOSINOPHILS # (AUTO) 0.3 10^3/uL (0.0-0.6); ABSOLUTE LYMPHOCYTES (AUTO) 2.6 10^3/uL (0.5-4.7); ABSOLUTE MONOCYTES (AUTO) 0.2 10^3/uL (0.1-1.4); ABSOLUTE NEUT (AUTO) 2.3 10^3/uL (1.7-8.2); BASOPHILS % (AUTO) 0.3 % (0-2); EOSINOPHILS % (AUTO) 5.8 % (0-6); HEMATOCRIT 33.3 % (36.0-47.0); LYMPHOCYTES % (AUTO) 46.8 % (13-45); MEAN CORPUSCULAR HEMOGLOBIN 29.1 pg (27.0-33.4); MEAN CORPUSCULAR HGB CONC 33.9 g/dL (32.0-36.0); MEAN CORPUSCULAR VOLUME 86 fl (80-97); MONOCYTES % (AUTO) 4.2 % (3-13); PLATELET COUNT 229 10^3/uL (150-450); RED BLOOD COUNT 3.88 10^6/uL (3.72-5.28); RED CELL DISTRIBUTION WIDTH 14.7 % (11.5-14.0); SEGMENTED NEUTROPHILS % (AUTO) 42.9 % (42-78); TOTAL CELLS COUNTED % (AUTO) 100 %; WHITE BLOOD COUNT 5.5 10^3/uL (4.0-10.5)
[2017-06-30 08:25] LABS: HEMOGLOBIN 11.3 g/dL (12.0-15.5)
[2017-06-30 10:05] VITALS: BP 94/58
--- NOTE | 2017-06-30 11:04 | PDOC DISCHARGE SUMMARY ---
General - Admit/Disc Date/PCP Admission Date/Primary Care Provider: 06/29/17 05:40 Discharge Date: 06/30/17 - Discharge Diagnosis (1) Breast abscess Is this a current diagnosis for this admission?: Yes Summary: Recent left breast abscess s/p I&D. Treated with Bactrim however had reaction. Started on IV Clindamycin. Work up included negative breast US for remaining abscess. Blood culture negative for growth at 24 hours. Patient has been afebrile and HDS. Will be discharged home with Clinda 300mg QID PO * 6 additional days for one week course. Advised to contact her doctor or return to the ED if she has new or worsening symptoms. (2) Migraine Is this a current diagnosis for this admission?: Yes Summary: This appears to be a chronic issues for patient. She has discussed with her PCP however has not been prescribed anything than "over the counter" agents. Discussed that here are many migraine abortive and preventative agents that she could potentially take. It would be better managed by her PCP or a neurologist. I gave her a script for Ibuprofen 800mg (10 tabs total) for headache and pain - Additional Information Discharge Diet: As Tolerated Discharge Activity: Activity As Tolerated, Balance Activity w/Rest Prescriptions: Clindamycin HCl [Cleocin HCl] 300 mg PO QID 6 Days #24 capsule Ibuprofen 800 mg PO Q12 PRN #10 tablet PRN Reason: For Headache Or Pain Home Medications: Gabapentin [Neurontin 300 mg Capsule] 600 mg PO Q8 06/29/17 Clindamycin HCl [Cleocin HCl] 300 mg PO QID 6 Days #24 capsule 06/30/17 Ibuprofen 800 mg PO Q12 PRN #10 tablet 06/30/17 History of Present Illness History of Present Illness: KYLE NIEVES is a 26 year old female with history of PTSD and bipolar disorder who presented yesterday morning for cellulitis and left breast abscess. She had incision and drainage of abscess and sent home with Bactrim. Patient came back with fever, generalized burning sensation, hyperemia and injected watery eyes after she took Bactrim. Historically patient has allergy to penicillins. She denied chest pain, diaphoresis, cough, nausea, vomiting, abdominal pain or diarrhea. She has dizziness but denied headache or blurry of vision. Admitted to hospitalist service for further management. Physical Exam Vital Signs: Temp Pulse Resp BP Pulse Ox 97.9 F 86 16 94/58 L 94 06/30/17 10:02 06/30/17 10:02 06/30/17 10:02 06/30/17 10:02 06/30/17 10:02 Intake & Output 06/29/17 06/30/17 07/01/17 06:59 06:59 06:59 Intake Total 1944 Balance 1944 Weight 93.6 kg 95.2 kg General appearance: PRESENT: no acute distress, morbidly obese, other Mouth exam: PRESENT: moist Neck exam: ABSENT: meningismus Respiratory exam: PRESENT: unlabored. ABSENT: tachypnea, wheezes Cardiovascular exam: PRESENT: +S1, +S2. ABSENT: tachycardia GI/Abdominal exam: PRESENT: soft. ABSENT: tenderness Extremities exam: PRESENT: full ROM Musculoskeletal exam: PRESENT: ambulatory Neurological exam: PRESENT: alert, awake, CN II-XII grossly intact Psychiatric exam: PRESENT: appropriate affect Results Laboratory Results: 06/30/17 07:12 06/30/17 07:12 06/30/17 06/30/17 07:12 07:12 WBC 5.5 RBC 3.88 Hgb 11.3 L D Hct 33.3 L MCV 86 MCH 29.1 MCHC 33.9 RDW 14.7 H Plt Count 229 Seg Neutrophils % 42.9 Lymphocytes % 46.8 H Monocytes % 4.2 Eosinophils % 5.8 Basophils % 0.3 Absolute Neutrophils 2.3 Absolute Lymphocytes 2.6 Absolute Monocytes 0.2 Absolute Eosinophils 0.3 Absolute Basophils 0.0 Sodium 140.0 Potassium 3.9 Chloride 108 H Carbon Dioxide 23 Anion Gap 9 BUN 6 L Creatinine 0.54 Est GFR ( Amer) > 60 Est GFR (Non-Af Amer) > 60 Glucose 87 Calcium 8.3 L Impressions: US Breast Unilateral - No abscess identified - Hypoechoic region at the site of wound and packing likely represents residual inflammatory/infectious phlegmom postdrainage Qualifiers - * PATIENT BEING DISCHARGED WITH ANY OF THE FOLLOWING DIAGNOSIS: No
== END 2017-06-30 10:19 | disposition home or self-care (01) | DRG 601 ==
LOC: ER 01:34 → EH 05:21 → UNDOADMIN 05:21 → EH 05:40 → 2N 06:46
PROVIDERS: ADMIT Internal Medicine; ATTEND Internal Medicine
DX: N61.1 Abscess of the breast and nipple (principal); D50.9 Iron deficiency anemia, unspecified; F31.9 Bipolar disorder, unspecified; F43.10 Post-traumatic stress disorder, unspecified; G43.909 Migraine, unspecified, not intractable, without status migrainosus; Z88.0 Allergy status to penicillin
CPT/HCPCS: 36415; 76641; 80048; 80053; 82803; 83605; 85025; 87040; 96361; 96365; 96375; 99284; J0780; J1200; J1885; J2060; J3370; J7030

== ENCOUNTER 2017-07-01 13:01 | Emergency (ER) | payer MEDICAID ==
[2017-07-01] MEDS ORDERED: ONDANSETRON 4 MG TAB.RAPDIS PO ONE (13:30)
--- NOTE | 2017-07-01 13:34 | ER Document Report ---
ED Medical Screen (RME) - General Chief Complaint: Nausea/Vomiting Stated Complaint: BREAST PAIN Time Seen by Provider: 07/01/17 13:23 Notes: 26-year-old female patient was seen here on 06/28/2017 for a breast abscess and complaining of pelvic pain. She had a CT LTD done showing nephrolithiasis without acute findings. She had a breast abscess incised and drained. She was discharged on . She returned that night possibly having a reaction to Septra, she was admitted to the hospital. She was discharged yesterday. She states she had nausea vomiting while she was here in the hospital including before she was discharged. She states that she was sent home she has not been able to keep anything down. She was not discharged with nausea medicine, only clindamycin. She complains of nausea vomiting and fevers since being discharged yesterday and pain in her right breast where the abscess was I&D. She is also reporting a 2 week history of pelvic pain that does not seem to be made worse with sex. A Chlamydia/gonorrhea PCR test was ordered on the urine. I have greeted and performed a rapid initial assessment of this patient. A comprehensive ED assessment and evaluation of the patient, analysis of test results and completion of the medical decision making process will be conducted by additional ED providers. TRAVEL OUTSIDE OF THE [place] IN LAST 30 DAYS: No - Related Data Allergies/Adverse Reactions: cephalexin [From Keflex] Allergy (Verified 07/01/17 13:06) rash Penicillins Allergy (Verified 07/01/17 13:06) Past Medical History - Social History Frequency of alcohol use: Social Drug Abuse: None Pulmonary Medical History: Reports: Hx Asthma, Hx Bronchitis Renal/ Medical History: Denies: Hx Peritoneal Dialysis Skin Medical History: Reports Hx Cellulitis Psychiatric Medical History: Reports: Hx Anxiety, Hx Bipolar Disorder, Hx Depression, Hx Post Traumatic Stress Disorder, Hx Schizophrenia Past Surgical History: Reports: Hx Section - x1, Hx Oral Surgery - wisdom teeth - Immunizations Immunizations up to date: No Hx Diphtheria, Pertussis, Tetanus Vaccination: No Physical Exam - Vital signs Vitals: Temp Pulse Resp BP Pulse Ox 98.6 F 88 18 123/72 98 07/01/17 13:17 07/01/17 13:17 07/01/17 13:17 07/01/17 13:17 07/01/17 13:17 Course - Vital Signs Vital signs: Temp Pulse Resp BP Pulse Ox 98.6 F 88 18 123/72 98 07/01/17 13:17 07/01/17 13:17 07/01/17 13:17 07/01/17 13:17 07/01/17 13:17
[2017-07-01 14:17] LABS: ABSOLUTE EOSINOPHILS # (AUTO) 0.2 10^3/uL (0.0-0.6); ABSOLUTE LYMPHOCYTES (AUTO) 2.4 10^3/uL (0.5-4.7); ABSOLUTE MONOCYTES (AUTO) 0.3 10^3/uL (0.1-1.4); ABSOLUTE NEUT (AUTO) 2.6 10^3/uL (1.7-8.2); APPEARANCE,URINE CLEAR; BASOPHILS % (AUTO) 0.3 % (0-2); BILIRUBIN,URINE NEGATIVE (NEGATIVE); COLOR,URINE STRAW; EOSINOPHILS % (AUTO) 3.6 % (0-6); GLUCOSE, URINE NEGATIVE (NEGATIVE); HEMATOCRIT 38.8 % (36.0-47.0); HEMOGLOBIN 13.1 g/dL (12.0-15.5); KETONES,URINE NEGATIVE (NEGATIVE); LEUKOCYTE ESTERASE,URINE NEGATIVE (NEGATIVE); LYMPHOCYTES % (AUTO) 44.1 % (13-45); MEAN CORPUSCULAR HEMOGLOBIN 28.8 pg (27.0-33.4); MEAN CORPUSCULAR HGB CONC 33.7 g/dL (32.0-36.0); MEAN CORPUSCULAR VOLUME 85 fl (80-97); MONOCYTES % (AUTO) 4.7 % (3-13); NITRITE,URINE NEGATIVE (NEGATIVE); PLATELET COUNT 311 10^3/uL (150-450); PROTEIN,URINE NEGATIVE (NEGATIVE); RED BLOOD COUNT 4.56 10^6/uL (3.72-5.28); RED CELL DISTRIBUTION WIDTH 15.1 % (11.5-14.0); SEGMENTED NEUTROPHILS % (AUTO) 47.3 % (42-78); TOTAL CELLS COUNTED % (AUTO) 100 %; URINE SPECIFIC GRAVITY 1.006; WHITE BLOOD COUNT 5.4 10^3/uL (4.0-10.5)
--- NOTE | 2017-07-01 14:54 | ER Document Report ---
HPI - HPI Pain Level: 4 Notes: Patient is a 26-year-old female with an extensive mental health history who presents to the ED complaining of occasional nausea/vomiting, continued right breast pain status post I&D, and vaginal pain with occasional dysuria. Patient states that her pains do not radiate. Patient was evaluated a few days ago and had an incision and drainage performed to the right breast. She returned later that day and was admitted due to nausea and vomiting possible reaction to her antibiotic, Bactrim. Patient otherwise had an unremarkable admission and was discharged on clindamycin. Ultrasound performed showed no other abscess to the right breast. Patient states that she has had the vaginal pain dysuria for a couple weeks. No other concerns or complaints at this time. Patient does admit to smoking but denies IV drug use. Denies any headache, fever, neck pain , URI, sore throat, chest pain, palpitations, syncope, cough, shortness of breath, wheeze, dyspnea, abdominal pain, diarrhea, urinary retention, hematuria , loss of control of bowel or bladder, numbness/tingling, saddle anesthesia, muscle paralysis/weakness, or rash. - ROS Systems Reviewed and Negative: Yes All other systems reviewed and negative - REPRODUCTIVE Reproductive: DENIES: : Past Medical History - Social History Smoking Status: Current Every Day Smoker Frequency of alcohol use: Social Drug Abuse: None Family History: Arthritis, CAD, COPD, CVA, DM, Hyperlipidemia, Hypertension, Thyroid Disfunction, Other - Depression, anxiety, and schizophrenia Patient has suicidal ideation: No Patient has homicidal ideation: No Pulmonary Medical History: Reports: Hx Asthma, Hx Bronchitis Renal/ Medical History: Denies: Hx Peritoneal Dialysis Skin Medical History: Reports Hx Cellulitis Psychiatric Medical History: Reports: Hx Anxiety, Hx Bipolar Disorder, Hx Depression, Hx Post Traumatic Stress Disorder, Hx Schizophrenia Past Surgical History: Reports: Hx Section - x1, Hx Oral Surgery - wisdom teeth - Immunizations Immunizations up to date: No Hx Diphtheria, Pertussis, Tetanus Vaccination: No Vertical Provider Document - CONSTITUTIONAL Agree With Documented VS: Yes Notes: PHYSICAL EXAMINATION: accompanied by female nurse GENERAL: Well-appearing, well-nourished and in no acute distress. HEAD: Atraumatic, normocephalic. EYES: Pupils equal round and reactive to light, extraocular movements intact, conjunctiva are normal. ENT: Nares patent, oropharynx clear without exudates. Moist mucous membranes. EAC's clear bilaterally. TMs intact bilaterally without erythema fluid or perforation. No tonsillar hypertrophy or erythema. Rt breast: Minimal to no erythema at site of I&D. Appears to be healing well, scant to no discharge noted. 0.3cm area of induration where I&D performed. No streaks. NECK: Normal range of motion, supple without lymphadenopathy LUNGS: Breath sounds clear to auscultation bilaterally and equal. No wheezes rales or rhonchi. HEART: Regular rate and rhythm without murmurs ABDOMEN: Soft, nontender, nondistended abdomen. No guarding, no rebound. No masses appreciated. Normal bowel sounds present. CVA tenderness negative bilaterally. Female : No inguinal adenopathy. External genitalia without erythema, lesions , or masses. Vaginal mucosa pink/dry w/o discharge. Cervix parous, pink, and without discharge. Uterus is smooth. No adnexal tenderness. Musculoskeletal: FROM to passive/active. Strength 5+/5. Extremities: No cyanosis/clubbing/edema b/l. Peripheral pulses 2+. Capillary refill less than 3 seconds. NEUROLOGICAL: Normal speech, normal gait. Normal sensory, motor exams PSYCH: Normal mood, normal affect. SKIN: Warm, Dry, normal turgor, no rashes or lesions noted. - INFECTION CONTROL TRAVEL OUTSIDE OF THE [place] IN LAST 30 DAYS: No Course - Re-evaluation Re-evalutation: 07/01/17 16:11 Patient is an afebrile, well-hydrated, 26-year-old female who presents to the ED with bacterial vaginosis and improving abscess status post incision and drainage. Vitals are acceptable. PE is otherwise unremarkable. Patient has not had any episodes of emesis today during her visit. Patient's abdomen is soft and nontender. Her incision and drainage site appears to be healing well. Patient is tolerating p.o. without difficulties. She has no significant tachycardia, tachypnea, or hypoxia. See wet mount results. Chlamydia and gonorrhea tests are still pending, patient declined Zithromax/Rocephin today his risk and benefit understood. Patient will call back later for her results. CBC and urinalysis were unremarkable for any acute pathology. Low suspicion for any sepsis, meningitis, severe dehydration, acute abdomen, ovarian torsion, PID, or other acute systemic conditions at this time. Patient to monitor symptoms closely and seek medical attention with any acute changes. Rx for flagyl and zofran. Conservative measures otherwise. Recheck with your PCM in 2 -3 days for a recheck. Return to the ED with worsening/concerning sx's otherwise as reviewed. Pt in agreement. - Vital Signs Vital signs: Temp Pulse Resp BP Pulse Ox 98.6 F 88 18 123/72 98 07/01/17 13:17 07/01/17 13:17 07/01/17 13:17 07/01/17 13:17 07/01/17 13:17 - Laboratory Result Diagrams: 07/01/17 13:40 Laboratory results interpreted by me: 07/01/17 07/01/17 13:40 13:40 RDW 15.1 H Urine Blood MODERATE H Urine Urobilinogen 4.0 H Procedures - Pelvic Exam Pelvic exam Time completed: 15:45 Cultures obtained: Yes Wet prep obtained: Yes Bimanual exam performed: Yes - negative Witnessed by: female PCT Discharge - Discharge Clinical Impression: Bacterial vaginosis, Encounter for wound re-check Condition: Stable Disposition: HOME, SELF-CARE Instructions: Vaginosis, Bacterial ([facility]), Antinausea Medication ([facility]) Additional Instructions: Maintain adequate fluid and food intake [place] diet ([employer] Bananas, rice, apples, toast, etc Zofran as needed tylenol if needed Monitor for any worsening symptoms Make sure you are staying hydrated enough to urinate and have normal BM's Recheck with your PCM in 2-3 days Consider consult with women's clinic/[facility] Return to the ED with any worsening symptoms and/or development of fever, headache, chest pain, palpitations, syncope, shortness of breath, trouble breathing, abdominal pain, n/v/d, blood in stool/urine, weakness, or other worsening symptoms that are concerning to you. Prescriptions: Metronidazole [Flagyl] 500 mg PO BID #14 tablet Ondansetron [Zofran Odt 4 mg Tablet] 1 - 2 tab PO Q4H PRN #15 tab.rapdis PRN Reason: For Nausea/Vomiting Forms: Smoking Cessation Education Referrals: BENEDICTO WOLFF MD [ACTIVE STAFF] - 07/04/17 [facility] [Provider Group] - Follow up as needed
[2017-07-01 16:01] LABS: BACTERIA (WET MOUNT) 4+ BACTERIA SEEN; EPITHELIALS (WET MOUNT) 4+ EPITHELIALS SEEN; T.VAGINALIS (WET MOUNT) NO TRICHOMONAS SEEN; WBCS (WET MOUNT) FEW WBCS SEEN; YEAST (WET MOUNT) NO YEAST SEEN
[2017-07-01 16:55] VITALS: BP 126/71
[2017-07-01 17:27] LABS: CHLAM PCR NOT DETECTED (NOT DETECT); GON PCR NOT DETECTED (NOT DETECT)
== END 2017-07-01 16:58 | disposition home or self-care (01) ==
LOC: ER 13:01
DX: N76.0 Acute vaginitis (principal); B96.89 Other specified bacterial agents as the cause of diseases classified elsewhere; N61.1 Abscess of the breast and nipple; Z98.890 Other specified postprocedural states; R11.2 Nausea with vomiting, unspecified; N64.4 Mastodynia; R30.0 Dysuria; R10.2 Pelvic and perineal pain; F17.200 Nicotine dependence, unspecified, uncomplicated; J45.909 Unspecified asthma, uncomplicated; Z79.899 Other long term (current) drug therapy
CPT/HCPCS: 99284; 36415; 87210; 85025; 81001; 87491; 87591; S0119

== ENCOUNTER 2017-07-22 08:03 | Emergency (ER) | payer MEDICAID ==
--- NOTE | 2017-07-22 08:13 | ER Document Report ---
ED General - General Chief Complaint: Headache Stated Complaint: HEADACHE Time Seen by Provider: 07/22/17 08:12 Mode of Arrival: Ambulatory Information source: Patient TRAVEL OUTSIDE OF THE [place] IN LAST 30 DAYS: No - HPI Notes: 26 female past medical history of migraines presents to the emergency room for evaluation of a migraine that has been occurring for the last 4 days. Patient states she usually takes powdered aspirin and is helps however this time. Reports similar to her previous headache. Reports bilateral headache, squeezing , 9 out of 10, throbbing. Denies any thunderclap headache. Denies this is a worse headache of her life patient has had migraines for the last 3-4 years, started getting to [facility] neurology, tried calling 2 days ago but the office was closed. Due to holiday. Last menstrual period was last week. Reports photophobia, nausea and vomiting. Last episode of vomiting was at 530 this morning. Denies fevers, chills, chest pain,palpitations, shortness of breath, dyspnea, diarrhea, abdominal pain, hematuria,blurred vision, double vision, loss of vision, speech changes, LH, dizziness, syncope, wheezing, ST, URI, neck pain, weakness, bowel or bladder dysfunction, saddle anesthesia, numbness or tingling in bilateral upper or lower extremities equally, muscle paralysis, weakness in bilateral upper or lower extremities equally or rash. Denies IV drug use. - Related Data Allergies/Adverse Reactions: cephalexin [From Keflex] Allergy (Verified 07/22/17 08:04) rash Penicillins Allergy (Verified 07/22/17 08:04) Past Medical History - General Information source: Patient - Social History Smoking Status: Current Every Day Smoker Family History: Arthritis, CAD, COPD, CVA, DM, Hyperlipidemia, Hypertension, Thyroid Disfunction, Other - Depression, anxiety, and schizophrenia Pulmonary Medical History: Reports: Hx Asthma, Hx Bronchitis Renal/ Medical History: Denies: Hx Peritoneal Dialysis Skin Medical History: Reports Hx Cellulitis Psychiatric Medical History: Reports: Hx Anxiety, Hx Bipolar Disorder, Hx Depression, Hx Post Traumatic Stress Disorder, Hx Schizophrenia Past Surgical History: Reports: Hx Section - x1, Hx Oral Surgery - wisdom teeth - Immunizations Immunizations up to date: No Hx Diphtheria, Pertussis, Tetanus Vaccination: No Review of Systems - Review of Systems Constitutional: No symptoms reported EENT: No symptoms reported Cardiovascular: No symptoms reported Respiratory: No symptoms reported Gastrointestinal: No symptoms reported Genitourinary: No symptoms reported Female Genitourinary: No symptoms reported Musculoskeletal: No symptoms reported Skin: No symptoms reported Hematologic/Lymphatic: No symptoms reported Neurological/Psychological: See HPI Physical Exam - Vital signs Vitals: Temp Pulse Resp BP Pulse Ox 97.9 F 82 14 116/71 98 07/22/17 08:07 07/22/17 08:07 07/22/17 08:07 07/22/17 08:07 07/22/17 08:07 - Notes Notes: PHYSICAL EXAMINATION: GENERAL: Well-appearing, well-nourished and in no acute distress. HEAD: Atraumatic, normocephalic. EYES: Pupils equal round and reactive to light, extraocular movements intact, conjunctiva are normal. ENT: Nares patent, oropharynx clear without exudates. Moist mucous membranes. NECK: Normal range of motion, supple without lymphadenopathy LUNGS: Breath sounds clear to auscultation bilaterally and equal. No wheezes rales or rhonchi. HEART: Regular rate and rhythm without murmurs ABDOMEN: Soft, nontender, nondistended abdomen. No guarding, no rebound. No masses appreciated. Female : deferred Musculoskeletal: Normal range of motion, no pitting or edema. No cyanosis. NEUROLOGICAL: Cranial nerves grossly intact. Normal speech, normal gait. Normal sensory, motor exams. PERRLA, EOMI. Full motor and sensory function throughout. 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 Tongue midline. No pronator drift. No ataxia. Neck with APROM. Raises eyebrows. Strength is 5 out of 5 in bilateral upper and lower extremities equally.Speaks in full sentences. No weakness on one side. Romberg gait steady able to walk straight line. Able to recall 5 objects. PSYCH: Normal mood, normal affect. SKIN: Warm, Dry, normal turgor, no rashes or lesions noted. Course - Re-evaluation Re-evalutation: 26-year-old female who is afebrile, vitals stable and in no distress presents for evaluation of migraine. Patient verbalizes that migraine is similar to her other migraines however she has us remaining child at home and this was making it worse, ibuprofen and Tylenol are not helping. Dr. Leyva is her primary care doctor, he is well aware of her migraines. Reports she has had CT of her head in the past. Patient does have a referral to neurology. Reports bilateral headache, squeezing, 8 out of 10, throbbing. On reevaluation, patient states her headache after 2 L of fluid, 30 mg of Toradol, 50 mg of Benadryl and 10 mg of Compazine when from the 11/05 to a . I estimate a low risk for acute glaucoma, temporal arteritis, meningitis, intracranial hemorrhage, stroke and ischemic stroke, thus I consider the discharge disposition reasonable. I have reevaluated this patient multiple times and no significant life threatening changes are noted. The patient and I have discussed the diagnosis and risks, and we agree with discharging home with close follow-up with the understanding that symptoms and presentations can change. We also discussed returning to the Emergency Department immediately if new or worsening symptoms occur. We have discussed the symptoms which are most concerning (e.g., changing or worsening symptoms, new numbness or weakness, vomiting, fever) that necessitate immediate return. 07/22/17 09:27 - Vital Signs Vital signs: Temp Pulse Resp BP Pulse Ox 97.9 F 82 14 116/71 98 07/22/17 08:07 07/22/17 08:07 07/22/17 08:07 07/22/17 08:07 07/22/17 08:07 Discharge - Discharge Clinical Impression: Headache Qualifiers: Headache type: tension-type Headache chronicity pattern: acute headache Intractability: intractable Qualified Code(s): G44.201 - Tension-type headache, unspecified, intractable Condition: Good Disposition: HOME, SELF-CARE Instructions: Toradol Injection ([facility]), Intravenous Compazine for Headaches ([facility] ), Use of Diphenhydramine, Antinausea Medication ([facility]), Headache ([facility]) Forms: Return to Work Referrals: BENEDICTO WOLFF MD [ACTIVE STAFF] - Follow up tomorrow (prn)
[2017-07-22] MEDS ORDERED: KETOROLAC TROMETHAMINE INJ/PF 30 MG/1 ML SDV IV ONE (08:23)
[2017-07-22] MEDS ORDERED: NORMAL SALINE 1000 ML 1,000 ML IV PRN (08:23)
[2017-07-22] MEDS ORDERED: PROCHLORPERAZINE EDISYLATE INJ 10 MG/2 ML VIAL IV ONE (08:24)
[2017-07-22] MEDS ORDERED: DIPHENHYDRAMINE HCL 50 MG/ML VIAL IV ONE (08:24)
[2017-07-22] MEDS ORDERED: NORMAL SALINE 1000 ML 1,000 ML IV ONE (09:19)
[2017-07-22 10:06] VITALS: BP 122/68
== END 2017-07-22 10:05 | disposition home or self-care (01) ==
LOC: ER 08:03
DX: G44.201 Tension-type headache, unspecified, intractable (principal); F17.200 Nicotine dependence, unspecified, uncomplicated; Z88.0 Allergy status to penicillin; Z88.3 Allergy status to other anti-infective agents
CPT/HCPCS: 99283; 96361; 96374; 96375; J1200; J1885; J0780; J7030

== ENCOUNTER 2017-07-26 13:23 | Emergency (ER) | payer MEDICAID ==
[2017-07-26 13:29] VITALS: BP 112/75
[2017-07-26] MEDS ORDERED: KETOROLAC TROMETHAMINE 60 MG/2 ML SDV IM ONE (13:39)
[2017-07-26] MEDS ORDERED: PROCHLORPERAZINE EDISYLATE INJ 10 MG/2 ML VIAL IM ONE (13:39)
[2017-07-26] MEDS ORDERED: DIPHENHYDRAMINE HCL 50 MG/ML VIAL IM ONE (13:39)
[2017-07-26] MEDS ORDERED: BACLOFEN 10 MG TABLET PO ONE (13:39)
--- NOTE | 2017-07-26 13:46 | ER Document Report ---
ED Headache - General Chief Complaint: Headache Stated Complaint: HEADACHE/EYE PAIN Time Seen by Provider: 07/26/17 13:38 Notes: Chief complaint: Headache History of complain:( obtained from----patient). 26 years old female presents today with headache since last Sunday that is 2 days ago. She was seen in the ER last Sunday to. States the headache is persistent since Sunday global with increased pain over the neck and stiffness of the neck. Denies any blurring of vision. But photophobia is present. Denies any numbness tingling sensation or weakness over the lower extremities. Denies any fever chills or other constitutional symptoms Onset: Gradual Duration: 2 days Severity: Moderate to severe Quality: Sharp Context: Neck sprain Exacerbating factor and relieving factors: Movement of the neck REVIEW OF SYSTEMS: CONSTITUTIONAL : Denies fever, chills, or sweats. Denies recent illness. EENT: Denies eye, ear, throat, or mouth pain or symptoms. Denies nasal or sinus congestion or discharge. Denies throat, tongue, or mouth swelling or difficulty swallowing. CARDIOVASCULAR: Denies chest pain. Denies palpitations or racing or irregular heart beat. Denies ankle edema. RESPIRATORY: Denies cough, cold, or chest congestion. Denies shortness of breath, difficulty breathing, or wheezing. GASTROINTESTINAL: Denies distention. Denies nausea, vomiting, or diarrhea. Denies blood in vomitus, stools, or per rectum. Denies black, tarry stools. Denies constipation. GENITOURINARY: Denies difficulty urinating, painful urination, burning, frequency, blood in urine, or discharge. FEMALE GENITOURINARY: Denies vaginal bleeding, heavy or abnormal periods, irregular periods. Denies vaginal discharge or odor. MUSCULOSKELETAL: Denies back or neck pain or stiffness. Denies joint pain or swelling. SKIN: Denies rash, lesions or sores. HEMATOLOGIC : Denies easy bruising or bleeding. LYMPHATIC: Denies swollen, enlarged glands. NEUROLOGICAL: Denies confusion or altered mental status. Denies passing out or loss of consciousness. Denies dizziness or lightheadedness. Denies headache. Denies weakness or paralysis or loss of use of either side. Denies problems with gait or speech. Denies sensory loss, numbness, or tingling. Denies seizures. PSYCHIATRIC: Denies anxiety or stress. Denies depression, suicidal ideation, or homicidal ideation. ALL OTHER SYSTEMS REVIEWED AND NEGATIVE. PHYSICAL EXAMINATION: GENERAL: Well-appearing, well-nourished and in no acute distress. HEAD: Atraumatic, normocephalic. EYES: Pupils equal round and reactive to light, extraocular movements intact, conjunctiva are normal. ENT: Nares patent, oropharynx clear without exudates. Moist mucous membranes. NECK: Normal range of motion, supple without lymphadenopathy, sharp tenderness noted on palpation over the paraspinal muscles LUNGS: Breath sounds clear to auscultation bilaterally and equal. No wheezes rales or rhonchi. HEART: Regular rate and rhythm without murmurs ABDOMEN: Soft, nontender, nondistended abdomen. No guarding, no rebound. No masses appreciated. Examination of genitals-deferred Musculoskeletal: Normal range of motion, no pitting or edema. No cyanosis. NEUROLOGICAL: Cranial nerves grossly intact. Normal speech, normal gait. Normal sensory, motor exams. No focal neurological deficit PSYCH: Normal mood, normal affect. SKIN: Warm, Dry, normal turgor, no rashes or lesions noted. Dictation was performed using [employer] voice recognition software TRAVEL OUTSIDE OF THE [place] IN LAST 30 DAYS: No - HPI Notes: Dictated - Related Data Allergies/Adverse Reactions: cephalexin [From Keflex] Allergy (Verified 07/26/17 13:26) rash Penicillins Allergy (Verified 07/26/17 13:26) Past Medical History - Social History Smoking Status: Current Every Day Smoker Cigarette use (# per day): No Chew tobacco use (# tins/day): No Smoking Education Provided: No Frequency of alcohol use: Rare Drug Abuse: None Lives with: Family Family History: Arthritis, CAD, COPD, CVA, DM, Hyperlipidemia, Hypertension, Thyroid Disfunction, Other - Depression, anxiety, and schizophrenia Pulmonary Medical History: Reports: Hx Asthma, Hx Bronchitis Renal/ Medical History: Denies: Hx Peritoneal Dialysis Skin Medical History: Reports Hx Cellulitis Psychiatric Medical History: Reports: Hx Anxiety, Hx Bipolar Disorder, Hx Depression, Hx Post Traumatic Stress Disorder, Hx Schizophrenia Past Surgical History: Reports: Hx Section - x1, Hx Oral Surgery - wisdom teeth - Immunizations Immunizations up to date: No Hx Diphtheria, Pertussis, Tetanus Vaccination: No Review of Systems - Review of Systems Notes: Dictated Physical Exam - Vital signs Vitals: Temp Pulse Resp BP Pulse Ox 98.4 F 95 22 H 112/75 98 07/26/17 13:28 07/26/17 13:28 07/26/17 13:28 07/26/17 13:28 07/26/17 13:28 - Notes Notes: Dictated Course - Re-evaluation Re-evalutation: 07/26/17 13:43 Given medications such as Phenergan Toradol Benadryl and baclofen - Vital Signs Vital signs: Temp Pulse Resp BP Pulse Ox 98.4 F 95 22 H 112/75 98 07/26/17 13:28 07/26/17 13:28 07/26/17 13:28 07/26/17 13:28 07/26/17 13:28 Discharge - Discharge Clinical Impression: Headache Qualifiers: Headache type: tension-type Headache chronicity pattern: acute headache Intractability: not intractable Qualified Code(s): G44.209 - Tension-type headache, unspecified, not intractable Cervical sprain Qualifiers: Encounter type: initial encounter Qualified Code(s): S13.9XXA - Sprain of joints and ligaments of unspecified parts of neck, initial encounter Condition: Fair Instructions: Headache ([facility]), Sprain ([facility]) Prescriptions: Ketorolac Tromethamine [Toradol 10 mg Tablet] 10 mg PO Q6HP PRN #14 tablet PRN Reason: Baclofen [Baclofen 10 mg Tablet] 10 mg PO TID #90 tab Prochlorperazine Maleate [Compazine 10 mg Tablet] 10 mg PO ASDIR PRN #10 tablet PRN Reason:
== END 2017-07-26 14:04 | disposition home or self-care (01) ==
LOC: ER 13:23
DX: G44.209 Tension-type headache, unspecified, not intractable (principal); S13.9XXA Sprain of joints and ligaments of unspecified parts of neck, initial encounter; X58.XXXA Exposure to other specified factors, initial encounter; H53.149 Visual discomfort, unspecified; J45.909 Unspecified asthma, uncomplicated; F17.200 Nicotine dependence, unspecified, uncomplicated; Z88.1 Allergy status to other antibiotic agents; Z88.0 Allergy status to penicillin
CPT/HCPCS: 99283; 96372; J3490; J1200; J1885; J0780

== ENCOUNTER 2017-09-04 19:45 | Emergency (ER) | payer MEDICAID ==
[2017-09-04 19:58] VITALS: BP 121/70
[2017-09-04] MEDS ORDERED: NORMAL SALINE 1000 ML 1,000 ML IV ONE (21:05)
[2017-09-04] MEDS ORDERED: METOCLOPRAMIDE HCL INJ/PF 10 MG/2 ML SDV IV ONE (21:05)
[2017-09-04] MEDS ORDERED: DIPHENHYDRAMINE HCL 50 MG/ML VIAL IV ONE (21:05)
--- NOTE | 2017-09-04 21:05 | ER Document Report ---
ED General - General Chief Complaint: Headache Stated Complaint: HEADACHES AND VOMITING Time Seen by Provider: 09/04/17 20:41 Mode of Arrival: Ambulatory Information source: Patient, [facility] Records Notes: 26-year-old female with migraine headaches, seizure disorder, asthma, PTSD, bipolar presents with complaint of headache that started 3 days prior to arrival. Headache is located in the forehead, described as a constant throbbing with radiation to her neck. Patient has tried ibuprofen without relief. She is under neurology care and is supposed to be on 2 medications for her migraine headaches but has been unable to acquire the prescription. Denies head injury. She does admit to multiple episodes of vomiting because of the headache. She denies any recent illness. TRAVEL OUTSIDE OF THE [place] IN LAST 30 DAYS: No - HPI Onset: Other Onset/Duration: Gradual, Persistent Quality of pain: Achy, Throbbing Severity: Moderate Pain Level: 2 Associated symptoms: Nausea, Vomiting Exacerbated by: Denies Relieved by: Denies Similar symptoms previously: Yes Recently seen / treated by doctor: Yes - Related Data Allergies/Adverse Reactions: cephalexin [From Keflex] Allergy (Verified 07/26/17 13:26) rash Penicillins Allergy (Verified 07/26/17 13:26) Past Medical History - General Information source: Patient, [facility] Records - Social History Smoking Status: Current Every Day Smoker Cigarette use (# per day): Yes - 15 Chew tobacco use (# tins/day): No Smoking Education Provided: Yes - Patient counselled regarding cessation for 4 minutes Frequency of alcohol use: Occasional Drug Abuse: None Lives with: Family Family History: Arthritis, CAD, COPD, CVA, DM, Hyperlipidemia, Hypertension, Thyroid Disfunction, Other - Depression, anxiety, and schizophrenia Patient has suicidal ideation: No Patient has homicidal ideation: No Pulmonary Medical History: Reports: Hx Asthma, Hx Bronchitis Neurological Medical History: Reports: Hx Migraine, Hx Seizures Renal/ Medical History: Denies: Hx Peritoneal Dialysis Skin Medical History: Reports Hx Cellulitis Psychiatric Medical History: Reports: Hx Anxiety, Hx Bipolar Disorder, Hx Depression, Hx Post Traumatic Stress Disorder, Hx Schizophrenia Past Surgical History: Reports: Hx Section - x1, Hx Oral Surgery - wisdom teeth - Immunizations Immunizations up to date: No Hx Diphtheria, Pertussis, Tetanus Vaccination: No Review of Systems - Review of Systems Constitutional: Malaise. denies: Fever EENT: Blurred vision, Sinus pressure Cardiovascular: denies: Chest pain, Palpitations Respiratory: denies: Cough, Short of breath Gastrointestinal: Nausea, Vomiting Genitourinary: denies: Dysuria Female Genitourinary: Last menstrual period - August 13, 2017 Musculoskeletal: Neck pain Skin: denies: Rash Hematologic/Lymphatic: denies: Easy bruising Neurological/Psychological: Headaches. denies: Seizure, Lost consciousness -: Yes All other systems reviewed and negative Physical Exam - Vital signs Vitals: Temp Pulse Resp BP Pulse Ox 98.9 F 100 16 121/70 100 09/04/17 19:47 09/04/17 19:47 09/04/17 19:47 09/04/17 19:47 09/04/17 19:47 - Notes Notes: PHYSICAL EXAMINATION: GENERAL: Well-appearing, well-nourished and in no acute distress. HEAD: Atraumatic, normocephalic. EYES: Pupils equal round and reactive to light, extraocular movements intact, conjunctiva are normal., Normal funduscopic exam ENT: Nares patent, oropharynx clear without exudates. Moist mucous membranes. NECK: Normal range of motion, supple without lymphadenopathy LUNGS: Breath sounds clear to auscultation bilaterally and equal. No wheezes rales or rhonchi. HEART: Regular rate and rhythm without murmurs ABDOMEN: Soft, nontender, nondistended abdomen. No guarding, no rebound. No masses appreciated. Female : deferred Musculoskeletal: Normal range of motion, no pitting or edema. No cyanosis. NEUROLOGICAL: Cranial nerves grossly intact. Normal speech, normal gait. Normal sensory, motor exams PSYCH: Normal mood, normal affect. SKIN: Warm, Dry, normal turgor, no rashes or lesions noted. Course - Re-evaluation Re-evalutation: 26-year-old female with migraine headaches, seizure disorder, asthma, PTSD, bipolar presents with complaint of headache that started 3 days prior to arrival. Headache is located in the forehead, described as a constant throbbing with radiation to her neck. Patient has tried ibuprofen without relief. She is under neurology care and is supposed to be on 2 medications for her migraine headaches but has been unable to acquire the prescription. Denies head injury. She does admit to multiple episodes of vomiting because of the headache. She denies any recent illness. Patient was seen by myself upon arrival. Vital signs were reviewed. Patient is afebrile, normotensive and not hypoxic. Patient does not appear toxic or dehydrated. They are in no acute distress. Previous medical records and nursing notes reviewed. She has a normal neurologic and funduscopic exam. She did receive IV Toradol, Reglan and Benadryl and reports resolution of her headache. She was advised to follow-up with her neurologist as already scheduled. Patient provided the opportunity to ask questions, and express concerns. Discharge instructions discussed. Patient is agreeable with discharge home. Return indications explained and discussed with the patient who displays understanding. Patient encouraged to return to the emergency department immediately with any concerns. 09/04/17 23:14 She reports improvement of her headache. 09/05/17 03:28 09/05/17 03:28 - Vital Signs Vital signs: Temp Pulse Resp BP Pulse Ox 97.6 F 85 17 121/70 99 09/04/17 23:42 09/04/17 23:42 09/04/17 23:42 09/04/17 23:42 09/04/17 23:42 Discharge - Discharge Clinical Impression: Headache Qualifiers: Headache type: unspecified Headache chronicity pattern: acute headache Intractability: not intractable Qualified Code(s): R51 - Headache Condition: Good Disposition: HOME, SELF-CARE Instructions: Use of Diphenhydramine, Headache ([facility]), Pain Medication Injection ([facility]), Reglan ([facility]), Toradol Injection ([facility]) Additional Instructions: Please follow-up with your neurologist as scheduled. Forms: Return to Work
[2017-09-04] MEDS ORDERED: KETOROLAC TROMETHAMINE INJ/PF 30 MG/1 ML SDV IV ONE (21:06)
== END 2017-09-04 23:44 | disposition home or self-care (01) ==
LOC: ER 19:45
DX: G43.909 Migraine, unspecified, not intractable, without status migrainosus (principal); T50.906A Underdosing of unspecified drugs, medicaments and biological substances, initial encounter; Z91.128 Patient's intentional underdosing of medication regimen for other reason; Z91.14 Patient's other noncompliance with medication regimen; J45.909 Unspecified asthma, uncomplicated; R11.2 Nausea with vomiting, unspecified; R53.81 Other malaise; H53.8 Other visual disturbances; J34.89 Other specified disorders of nose and nasal sinuses; M54.2 Cervicalgia; F17.210 Nicotine dependence, cigarettes, uncomplicated; Z71.6 Tobacco abuse counseling; Z88.1 Allergy status to other antibiotic agents; Z88.0 Allergy status to penicillin
CPT/HCPCS: 99284; 96361; 96374; 96375; J1200; J1885; J2765; J7030

== ENCOUNTER 2017-10-05 15:30 | Emergency (ER) | payer MEDICAID ==
--- NOTE | 2017-10-05 16:24 | ER Document Report ---
ED Medical Screen (RME) - General Chief Complaint: Abdominal Pain Stated Complaint: ABDOMINAL PAIN Time Seen by Provider: 10/05/17 16:22 Mode of Arrival: Ambulatory Information source: Patient TRAVEL OUTSIDE OF THE [place] IN LAST 30 DAYS: No - HPI Patient complains to provider of: ; low abd pain Onset: This morning - pt is approx 7 weeks with onset of low abd pain earlier today. Denies vag bleeding - Related Data Allergies/Adverse Reactions: cephalexin [From Keflex] Allergy (Verified 07/26/17 13:26) rash Penicillins Allergy (Verified 07/26/17 13:26) Past Medical History Pulmonary Medical History: Reports: Hx Asthma, Hx Bronchitis Neurological Medical History: Reports: Hx Migraine, Hx Seizures Renal/ Medical History: Denies: Hx Peritoneal Dialysis Skin Medical History: Reports Hx Cellulitis Psychiatric Medical History: Reports: Hx Anxiety, Hx Bipolar Disorder, Hx Depression, Hx Post Traumatic Stress Disorder, Hx Schizophrenia Past Surgical History: Reports: Hx Section - x1, Hx Oral Surgery - wisdom teeth - Immunizations Immunizations up to date: No Hx Diphtheria, Pertussis, Tetanus Vaccination: No Physical Exam - Vital signs Vitals: Temp Pulse Resp BP Pulse Ox 98.7 F 91 16 131/63 H 100 10/05/17 15:46 10/05/17 15:46 10/05/17 15:46 10/05/17 15:46 10/05/17 15:46 Course - Vital Signs Vital signs: Temp Pulse Resp BP Pulse Ox 98.7 F 91 16 131/63 H 100 10/05/17 15:46 10/05/17 15:46 10/05/17 15:46 10/05/17 15:46 10/05/17 15:46
[2017-10-05 16:57] LABS: ABSOLUTE EOSINOPHILS # (AUTO) 0.2 10^3/uL (0.0-0.6); ABSOLUTE LYMPHOCYTES (AUTO) 3.4 10^3/uL (0.5-4.7); ABSOLUTE MONOCYTES (AUTO) 0.4 10^3/uL (0.1-1.4); ABSOLUTE NEUT (AUTO) 3.9 10^3/uL (1.7-8.2); BASOPHILS % (AUTO) 0.6 % (0-2); EOSINOPHILS % (AUTO) 2.2 % (0-6); HEMOGLOBIN 12.7 g/dL (12.0-15.5); LYMPHOCYTES % (AUTO) 42.8 % (13-45); MEAN CORPUSCULAR HEMOGLOBIN 29.1 pg (27.0-33.4); MEAN CORPUSCULAR HGB CONC 34.4 g/dL (32.0-36.0); MEAN CORPUSCULAR VOLUME 85 fl (80-97); MONOCYTES % (AUTO) 5.4 % (3-13); PLATELET COUNT 292 10^3/uL (150-450); RED BLOOD COUNT 4.37 10^6/uL (3.72-5.28); RED CELL DISTRIBUTION WIDTH 13.3 % (11.5-14.0); TOTAL CELLS COUNTED % (AUTO) 100 %
[2017-10-05 17:22] LABS: ALANINE AMINOTRANSFERASE 16 U/L (9-52); ALBUMIN 4.1 g/dL (3.5-5.0); ALKALINE PHOSPHATASE 49 U/L (38-126); ANION GAP 12 (5-19); ASPARTATE AMINO TRANSFERASE 14 U/L (14-36); BILIRUBIN,DIRECT 0.3 mg/dL (0.0-0.4); BILIRUBIN,TOTAL 0.3 mg/dL (0.2-1.3); BLOOD UREA NITROGEN 6 mg/dL (7-20); CALCIUM 9.2 mg/dL (8.4-10.2); CARBON DIOXIDE 23 mmol/L (22-30); CHLORIDE 106 mmol/L (98-107); GLUCOSE 85 mg/dL (75-110); POTASSIUM 3.9 mmol/L (3.6-5.0); SODIUM 141.4 mmol/L (137-145); TOTAL PROTEIN 7.2 g/dL (6.3-8.2)
[2017-10-05 17:27] LABS: APPEARANCE,URINE SLIGHTLY-CLOUDY; BILIRUBIN,URINE NEGATIVE (NEGATIVE); COLOR,URINE YELLOW; GLUCOSE, URINE NEGATIVE (NEGATIVE); KETONES,URINE NEGATIVE (NEGATIVE); LEUKOCYTE ESTERASE,URINE TRACE (NEGATIVE); NITRITE,URINE NEGATIVE (NEGATIVE); PROTEIN,URINE NEGATIVE (NEGATIVE); URINE SPECIFIC GRAVITY 1.011
--- NOTE | 2017-10-05 18:34 | RADIOLOGY REPORT (SQ) ---
EXAM DESCRIPTION: U/S OB TRANSVAG W/DOPPLER COMPLETED DATE/TIME: 10/05/2017 6:20 pm REASON FOR STUDY: low abd pain COMPARISON: None. TECHNIQUE: Transvaginal static and realtime grayscale images acquired of the pelvis. Additional cori cted spectral and color Doppler images recorded. All images stored on PACs. bHC,000 CLINICAL DATES: 7 weeks 3 days LIMITATIONS: None. FINDINGS: FETUS: Living intrauterine . ULTRASOUND EGA: 7 weeks 1 day ULTRASOUND YAO: 05/23/2018 CRL: 10.6 mm FHR: 160 beats per minute. SUBCHORIONIC BLEED: No SIZE OF BLEED: Not applicable. UTERUS: No masses. No anomalies. CERVICAL LENGTH: 3.1 cm Closed. RIGHT ADNEXA: Ovary not identified. No adnexal free fluid. No adnexal masses. LEFT ADNEXA: Ovary not identified. No adnexal free fluid. No adnexal masses. FREE FLUID: Trace cul-de-sac free fluid. OTHER: No other significant finding. IMPRESSION: LIVING INTRAUTERINE . EGA 7 weeks 1 day Trimester of : First - 0 to 13 weeks. TECHNICAL DOCUMENTATION: JOB ID: [id number] [id number] 2010 [employer]- All Rights Reserved Reading location - IP/workstation name: [email or web address]
--- NOTE | 2017-10-05 19:32 | ER Document Report ---
ED General - General Mode of Arrival: Ambulatory Information source: Patient TRAVEL OUTSIDE OF THE [place] IN LAST 30 DAYS: No <MANAS HEATH - Last Filed: 10/05/17 20:49> <JUSTINAALIA Arriaga - Last Filed: 10/05/17 23:43> - General Chief Complaint: Abdominal Pain Stated Complaint: ABDOMINAL PAIN Time Seen by Provider: 10/05/17 16:22 Notes: Patient is a 26 year old female presenting to the emergency department complaining of abdominal pain. Patient states the pain is across her entire abdomen further describing it as a sharp burning pain. She states the pain radiates into her sides. Patient also complains of some vomiting. Patient denies any falls, trauma, diarrhea, vaginal bleeding or vaginal discharge. Patient is currently approximately 7 weeks . (MANAS HEATH) - Related Data Allergies/Adverse Reactions: cephalexin [From Keflex] Allergy (Verified 10/05/17 16:25) rash Penicillins Allergy (Verified 10/05/17 16:25) Past Medical History - General Information source: Patient - Social History Smoking Status: Current Every Day Smoker Frequency of alcohol use: None Family History: Arthritis, CAD, COPD, CVA, DM, Hyperlipidemia, Hypertension, Thyroid Disfunction, Other - Depression, anxiety, and schizophrenia Patient has suicidal ideation: No Patient has homicidal ideation: No Pulmonary Medical History: Reports: Hx Asthma, Hx Bronchitis Neurological Medical History: Reports: Hx Migraine, Hx Seizures Skin Medical History: Reports Hx Cellulitis Psychiatric Medical History: Reports: Hx Anxiety, Hx Bipolar Disorder, Hx Depression, Hx Post Traumatic Stress Disorder, Hx Schizophrenia Past Surgical History: Reports: Hx Section - x1, Hx Oral Surgery - wisdom teeth - Immunizations Immunizations up to date: No Hx Diphtheria, Pertussis, Tetanus Vaccination: No <MANAS HEATH - Last Filed: 10/05/17 20:49> Review of Systems - Review of Systems Constitutional: No symptoms reported EENT: No symptoms reported Cardiovascular: No symptoms reported Respiratory: No symptoms reported Gastrointestinal: See HPI, Abdominal pain Genitourinary: No symptoms reported Female Genitourinary: No symptoms reported Musculoskeletal: See HPI Skin: No symptoms reported Hematologic/Lymphatic: No symptoms reported Neurological/Psychological: No symptoms reported -: Yes All other systems reviewed and negative <MANAS HEATH - Last Filed: 10/05/17 20:49> Physical Exam <MANAS HEATH - Last Filed: 10/05/17 20:49> <ALIA HORN Bart - Last Filed: 10/05/17 23:43> - Vital signs Vitals: Temp Pulse Resp BP Pulse Ox 98.7 F 91 16 131/63 H 100 10/05/17 15:46 10/05/17 15:46 10/05/17 15:46 10/05/17 15:46 10/05/17 15:46 - Notes Notes: GENERAL: Alert, interacts well. No acute distress. HEAD: Normocephalic, atraumatic. EYES: Pupils equal, round, and reactive to light. Extraocular movements intact. ENT: Oral mucosa moist, tongue midline. NECK: Full range of motion. Supple. Trachea midline. LUNGS: Clear to auscultation bilaterally, no wheezes, rales, or rhonchi. No respiratory distress. HEART: Regular rate and rhythm. No murmurs, gallops, or rubs. ABDOMEN: Soft, Diffuse abdominal tenderness to palpation. Non-distended. Bowel sounds present in all 4 quadrants. EXTREMITIES: Moves all 4 extremities spontaneously. NEUROLOGICAL: Alert and oriented x3. Normal speech. PSYCH: Normal affect, normal mood. SKIN: Warm, dry, normal turgor. No rashes or lesions noted. (MANAS HEATH) Course - Laboratory Result Diagrams: 10/05/17 16:42 10/05/17 16:42 <MANAS HEATH - Last Filed: 10/05/17 20:49> - Laboratory Result Diagrams: 10/05/17 16:42 10/05/17 16:42 <ALIA HORN Bart - Last Filed: 10/05/17 23:43> - Re-evaluation Re-evalutation: 10/05/17 20:24 Patient well-appearing in no distress. Patient's labs within normal limits are nonsignificant and her urine does not show any overt signs of urinary tract infections due to we will culture urine and patient will be called in antibiotics if cultures grow. We will provide patient Reglan for nausea and also Zantac sour taste in her throat. Her pain that she was experiencing was diffuse in her abdomen no point tenderness. I suspect her pain is due to the vomiting she has been experiencing and could have a component regarding her acid indigestion. Return precautions were provided (ALIA HORN) - Vital Signs Vital signs: Temp Pulse Resp BP Pulse Ox 98.2 F 76 18 120/65 99 10/05/17 20:38 10/05/17 20:38 10/05/17 20:38 10/05/17 20:38 10/05/17 20:38 - Laboratory Laboratory results interpreted by me: 10/05/17 10/05/17 16:32 16:42 BUN 6 L Creatinine 0.48 L Beta HCG, Quant 47801.00 H Urine Blood MODERATE H Urine Urobilinogen 4.0 H Ur Leukocyte Esterase TRACE H Discharge <MANAS HEATH - Last Filed: 10/05/17 20:49> <ALIA HORN - Last Filed: 10/05/17 23:43> - Discharge Clinical Impression: Abdominal pain Qualifiers: Abdominal location: generalized Qualified Code(s): R10.84 - Generalized abdominal pain GERD (gastroesophageal reflux disease) Qualifiers: Esophagitis presence: esophagitis presence not specified Qualified Code(s): K21.9 - Gastro-esophageal reflux disease without esophagitis Condition: Good Disposition: HOME, SELF-CARE Instructions: Abdominal Pain ([facility]), Antinausea Medication ([facility]), Reflux Disease (GERD) ([facility]) Prescriptions: Metoclopramide HCl [Reglan 10 mg Tablet] 1 tab PO ASDIR PRN #25 tablet PRN Reason: Ranitidine HCl [Zantac] 150 mg PO BID #60 tablet Forms: Return to Work Scribe Attestation: 10/05/17 23:43 I personally performed the services described in the documentation, reviewed and edited the documentation which was dictated to the scribe in my presence, and it accurately records my words and actions. (ALIA HORN) Scribe Documentation - Scribe Written by Dejuan:: Dejuan Dong, 10/05/2017 20:01 acting as scribe for :: Justina <MANAS HEATH - Last Filed: 10/05/17 20:49>
[2017-10-05 20:39] VITALS: BP 120/65
== END 2017-10-05 20:39 | disposition home or self-care (01) ==
LOC: ER 15:30
DX: O99.619 Diseases of the digestive system complicating pregnancy, unspecified trimester (principal); K21.9 Gastro-esophageal reflux disease without esophagitis; O21.9 Vomiting of pregnancy, unspecified; O26.899 Other specified pregnancy related conditions, unspecified trimester; R10.84 Generalized abdominal pain; O99.519 Diseases of the respiratory system complicating pregnancy, unspecified trimester; J45.909 Unspecified asthma, uncomplicated; O99.330 Smoking (tobacco) complicating pregnancy, unspecified trimester; Z3A.00 Weeks of gestation of pregnancy not specified; Z88.1 Allergy status to other antibiotic agents; Z88.0 Allergy status to penicillin
CPT/HCPCS: 36415; 76817; 80053; 81001; 84702; 85025; 87086; 93976; 99284

== ENCOUNTER 2018-01-22 20:55 | Outpatient (CLI) | payer MEDICAID ==
[2018-01-22 21:06] VITALS: BP 111/60
[2018-01-22 22:14] LABS: APPEARANCE,URINE CLEAR; BILIRUBIN,URINE NEGATIVE (NEGATIVE); COLOR,URINE STRAW; GLUCOSE, URINE NEGATIVE (NEGATIVE); KETONES,URINE NEGATIVE (NEGATIVE); LEUKOCYTE ESTERASE,URINE NEGATIVE (NEGATIVE); NITRITE,URINE NEGATIVE (NEGATIVE); PROTEIN,URINE NEGATIVE (NEGATIVE); URINE SPECIFIC GRAVITY 1.004; UROBILINOGEN,URINE NEGATIVE mg/dL (<2.0)
[2018-01-22 22:30] LABS: URINE AMPHETAMINES SCREEN NEGATIVE; URINE BARBITURATES SCREEN NEGATIVE; URINE BENZODIAZEPINES SCREEN NEGATIVE; URINE COCAINE SCREEN NEGATIVE; URINE MARIJUANA (THC) SCREEN NEGATIVE; URINE METHADONE SCREEN NEGATIVE; URINE PHENCYCLIDINE SCREEN NEGATIVE
--- NOTE | 2018-01-23 07:33 | EKG REPORT ---
SEVERITY:- OTHERWISE NORMAL ECG - SINUS TACHYCARDIA : Confirmed by: Korey Villaseñor MD 23-Jan-2018 07:32:53
== END 2018-01-22 22:22 | disposition left against medical advice (07) ==
LOC: EDSTATUS 21:29 → LC 21:30
PROVIDERS: ATTEND Student in an Organized Health Care Education/Training Program
PROC: 4A1HXCZ Monitoring of Products of Conception, Cardiac Rate, External Approach (ICD-10-PCS; principal; 2018-01-22)
DX: O36.8120 Decreased fetal movements, second trimester, not applicable or unspecified (principal); O26.892 Other specified pregnancy related conditions, second trimester; R07.9 Chest pain, unspecified; R42 Dizziness and giddiness; Z3A.24 24 weeks gestation of pregnancy
CPT/HCPCS: 80307; 81001; 93005; 93010

== ENCOUNTER 2018-02-02 16:59 | Outpatient (CLI) | payer MEDICAID ==
[2018-02-02 18:35] LABS: APPEARANCE,URINE SLIGHTLY-CLOUDY; BILIRUBIN,URINE SMALL (NEGATIVE); COLOR,URINE AMBER; GLUCOSE, URINE NEGATIVE (NEGATIVE); KETONES,URINE NEGATIVE (NEGATIVE); LEUKOCYTE ESTERASE,URINE NEGATIVE (NEGATIVE); NITRITE,URINE NEGATIVE (NEGATIVE); PROTEIN,URINE 30 mg/dL (NEGATIVE); URINE SPECIFIC GRAVITY 1.029
[2018-02-02 18:42] LABS: T.VAGINALIS (WET MOUNT) NO TRICHOMONAS SEEN; WBCS (WET MOUNT) FEW WBCS SEEN; YEAST (WET MOUNT) NO YEAST SEEN
[2018-02-02 18:43] LABS: EPITHELIALS (WET MOUNT) 3+ EPITHELIALS SEEN; RBCS (WET MOUNT) FEW RBCS SEEN
[2018-02-02 18:53] LABS: URINE AMPHETAMINES SCREEN NEGATIVE; URINE BARBITURATES SCREEN NEGATIVE; URINE BENZODIAZEPINES SCREEN NEGATIVE; URINE COCAINE SCREEN NEGATIVE; URINE MARIJUANA (THC) SCREEN NEGATIVE; URINE METHADONE SCREEN NEGATIVE; URINE PHENCYCLIDINE SCREEN NEGATIVE
== END 2018-02-02 20:17 | disposition home or self-care (01) ==
LOC: LC 16:59
PROVIDERS: ATTEND Obstetrics & Gynecology
DX: O47.02 False labor before 37 completed weeks of gestation, second trimester (principal); Z3A.24 24 weeks gestation of pregnancy
CPT/HCPCS: 80307; 81001; 87086; 87210

== ENCOUNTER → 2018-04-01 | Outpatient (CLI) | payer MEDICAID ==
[2018-04-01 13:21] LABS: ABSOLUTE EOSINOPHILS # (AUTO) 0.1 10^3/uL (0.0-0.6); ABSOLUTE LYMPHOCYTES (AUTO) 3.1 10^3/uL (0.5-4.7); ABSOLUTE MONOCYTES (AUTO) 0.7 10^3/uL (0.1-1.4); BASOPHILS % (AUTO) 0.3 % (0-2); EOSINOPHILS % (AUTO) 0.7 % (0-6); HEMOGLOBIN 10.4 g/dL (12.0-15.5); LYMPHOCYTES % (AUTO) 25.8 % (13-45); MEAN CORPUSCULAR HEMOGLOBIN 26.3 pg (27.0-33.4); MEAN CORPUSCULAR HGB CONC 33.7 g/dL (32.0-36.0); MEAN CORPUSCULAR VOLUME 78 fl (80-97); MONOCYTES % (AUTO) 5.8 % (3-13); PLATELET COUNT 329 10^3/uL (150-450); RED BLOOD COUNT 3.97 10^6/uL (3.72-5.28); RED CELL DISTRIBUTION WIDTH 13.7 % (11.5-14.0); SEGMENTED NEUTROPHILS % (AUTO) 67.4 % (42-78); TOTAL CELLS COUNTED % (AUTO) 100 %; WHITE BLOOD COUNT 11.9 10^3/uL (4.0-10.5)
[2018-04-01 14:33] LABS: FREE T4 (FREE THYROXINE) 0.77 ng/dL (0.78-2.19)
[2018-04-01 14:47] LABS: THYROID STIMULATING HORMONE 1.29 uIU/mL (0.47-4.68)
== END ==
LOC: OD 11:37
PROVIDERS: ATTEND Registered Nurse Women's Health Care, Ambulatory
DX: O26.819 Pregnancy related exhaustion and fatigue, unspecified trimester (principal); R51 Headache; Z3A.00 Weeks of gestation of pregnancy not specified
CPT/HCPCS: 36415; 84439; 84443; 85025

== ENCOUNTER 2018-04-12 19:12 | Outpatient (CLI) | payer MEDICAID ==
[2018-04-12 20:33] LABS: APPEARANCE,URINE SLIGHTLY-CLOUDY; BILIRUBIN,URINE NEGATIVE (NEGATIVE); COLOR,URINE YELLOW; GLUCOSE, URINE NEGATIVE (NEGATIVE); KETONES,URINE NEGATIVE (NEGATIVE); LEUKOCYTE ESTERASE,URINE NEGATIVE (NEGATIVE); NITRITE,URINE NEGATIVE (NEGATIVE); PROTEIN,URINE NEGATIVE (NEGATIVE); URINE SPECIFIC GRAVITY 1.005; UROBILINOGEN,URINE NEGATIVE mg/dL (<2.0)
[2018-04-12 20:45] LABS: URINE AMPHETAMINES SCREEN NEGATIVE; URINE BARBITURATES SCREEN NEGATIVE; URINE BENZODIAZEPINES SCREEN NEGATIVE; URINE COCAINE SCREEN NEGATIVE; URINE MARIJUANA (THC) SCREEN NEGATIVE; URINE METHADONE SCREEN NEGATIVE; URINE PHENCYCLIDINE SCREEN NEGATIVE
== END 2018-04-12 21:21 | disposition home or self-care (01) ==
LOC: LC 19:12
PROVIDERS: ATTEND Obstetrics & Gynecology Gynecology
PROC: 4A1HXCZ Monitoring of Products of Conception, Cardiac Rate, External Approach (ICD-10-PCS; principal; 2018-04-12)
DX: O47.03 False labor before 37 completed weeks of gestation, third trimester (principal); Z3A.34 34 weeks gestation of pregnancy
CPT/HCPCS: 59025; 80307; 81001

== ENCOUNTER 2018-05-09 09:16 | Outpatient (CLI) | payer MEDICAID ==
--- NOTE | 2018-05-09 09:21 | Non Stress Test Report ---
Non Stress Test Datetime Report Generated by CPN: 05/09/2018 09:21 DEMOGRAPHIC EGA NST: 34.3 INDICATION Indication for Study: Ordered by Provider; Other Indication for Study (NST) Other: LC URINE RESULTS Urine Protein, NST: Negative Urine Ketones - NST: Negative Urine Glucose - NST: Negative Urine Blood - NST: Negative MONITORING Monitor Explained: Monitor Explained; Test Explained; Patient Verbalized Understanding Time on Monitor: 04/12/2018 19:39 Time off Monitor: 04/12/2018 21:09 NST Duration: 90 NST INTERVENTIONS NST Interventions: PO Hydration; Other NST Interventions Other: popsicle BABY A: [id number] BABY A Movement : Present Contraction Frequency : iregg FHR Baseline : 135 Accelerations : 15X15 Decelerations : None Variability : Moderate 6-25bpm NST Review: Meets Criteria for Reactive NST NST Review and Verified By : Puneet Guadarrama RN NST Results: Reactive NST REPORT Report Trigger: Send Report
== END 2018-05-09 09:52 | disposition home or self-care (01) ==
LOC: LC 09:16
PROVIDERS: ATTEND Obstetrics & Gynecology
PROC: 4A1HXCZ Monitoring of Products of Conception, Cardiac Rate, External Approach (ICD-10-PCS; principal; 2018-05-09)
DX: Z34.93 Encounter for supervision of normal pregnancy, unspecified, third trimester (principal)
CPT/HCPCS: 59025

== ENCOUNTER 2018-05-16 05:57 | Inpatient (IN) | payer MEDICAID ==
[2018-05-15 10:07] LABS: APPEARANCE,URINE CLEAR; BILIRUBIN,URINE NEGATIVE (NEGATIVE); COLOR,URINE YELLOW; GLUCOSE, URINE NEGATIVE (NEGATIVE); KETONES,URINE NEGATIVE (NEGATIVE); LEUKOCYTE ESTERASE,URINE NEGATIVE (NEGATIVE); NITRITE,URINE NEGATIVE (NEGATIVE); PROTEIN,URINE NEGATIVE (NEGATIVE); URINE SPECIFIC GRAVITY 1.008
[2018-05-15 10:21] LABS: URINE AMPHETAMINES SCREEN NEGATIVE; URINE BARBITURATES SCREEN NEGATIVE; URINE BENZODIAZEPINES SCREEN NEGATIVE; URINE COCAINE SCREEN NEGATIVE; URINE MARIJUANA (THC) SCREEN NEGATIVE; URINE METHADONE SCREEN NEGATIVE; URINE PHENCYCLIDINE SCREEN NEGATIVE
[2018-05-15 10:40] LABS: ABSOLUTE EOSINOPHILS # (AUTO) 0.1 10^3/uL (0.0-0.6); ABSOLUTE LYMPHOCYTES (AUTO) 3.3 10^3/uL (0.5-4.7); ABSOLUTE MONOCYTES (AUTO) 0.8 10^3/uL (0.1-1.4); ABSOLUTE NEUT (AUTO) 7.6 10^3/uL (1.7-8.2); BASOPHILS % (AUTO) 0.4 % (0-2); EOSINOPHILS % (AUTO) 0.6 % (0-6); HEMATOCRIT 34.4 % (36.0-47.0); HEMOGLOBIN 11.6 g/dL (12.0-15.5); LYMPHOCYTES % (AUTO) 27.7 % (13-45); MEAN CORPUSCULAR HGB CONC 33.7 g/dL (32.0-36.0); MEAN CORPUSCULAR VOLUME 77 fl (80-97); PLATELET COUNT 391 10^3/uL (150-450); RED BLOOD COUNT 4.46 10^6/uL (3.72-5.28); RED CELL DISTRIBUTION WIDTH 17.1 % (11.5-14.0); SEGMENTED NEUTROPHILS % (AUTO) 64.3 % (42-78); TOTAL CELLS COUNTED % (AUTO) 100 %; WHITE BLOOD COUNT 11.8 10^3/uL (4.0-10.5)
--- NOTE | 2018-05-15 23:18 | EKG REPORT ---
SEVERITY:- OTHERWISE NORMAL ECG - SINUS TACHYCARDIA : Confirmed by: Franco Hopkins 15-May-2018 23:17:46
[2018-05-16] MEDS ORDERED: CEFAZOLIN 1 GM/D5W RTU 0 GM/0 ML RTUPB IV ONE (06:21)
[2018-05-16] MEDS ORDERED: RINGERS SOLUTION,LACTATED 1,000 ML IV ONE (06:30)
[2018-05-16] MEDS ORDERED: OXYTOCIN 10 UNIT/ML VIAL ONE (07:23)
[2018-05-16] MEDS ORDERED: FENTANYL CITRATE INJ/PF 100 MCG/2 ML AMPUL ONE (07:24)
[2018-05-16] MEDS ORDERED: ACETAMINOPHEN 1,000 MG/100 ML RTUPB IV ONE (07:24)
[2018-05-16] MEDS ORDERED: KETOROLAC TROMETHAMINE INJ/PF 30 MG/1 ML SDV ONE (07:24)
[2018-05-16] MEDS ORDERED: EPHEDRINE SULFATE INJ 50 MG/1 ML AMPULE ONE (07:24)
[2018-05-16] MEDS ORDERED: MIDAZOLAM 2 MG/2 ML INJ ONE (07:24)
[2018-05-16] MEDS ORDERED: OXYTOCIN/NORMAL SALINE 20 UNIT/1,000 ML RTUINJ ONE (07:24)
[2018-05-16] MEDS ORDERED: ONDANSETRON HCL INJ/PF 4 MG/2 ML SDV ONE (07:24)
[2018-05-16] MEDS: LACTATED RINGERS 1000 ML IV PRN ×2 (08:06→22:52)
[2018-05-16] MEDS ORDERED: VANCOMYCIN HCL 1,000 MG in DEXTROSE 5%-WATER 250 ML IV ONE (08:30)
[2018-05-16] MEDS ORDERED: FENTANYL CITRATE INJ/PF 100 MCG/2 ML AMPUL IV PRN ×3 (09:17)
[2018-05-16] MEDS ORDERED: MORPHINE SULFATE 10 MG/ML INJ IV PRN (09:17)
[2018-05-16] MEDS ORDERED: PROMETHAZINE HCL INJ 25 MG/1 ML VIAL IV PRN ×3 (09:17→09:29)
[2018-05-16] MEDS ORDERED: DIPHENHYDRAMINE HCL 50 MG/ML VIAL IV PRN (09:17)
[2018-05-16] MEDS ORDERED: OXYCODONE-ACETAMINOPHEN 5-325 MG TABLET PO PRN ×2 (09:17)
[2018-05-16] MEDS ORDERED: MEPERIDINE HCL/PF INJ 25 MG/1 ML DISP.SYRIN IV PRN (09:17)
[2018-05-16] MEDS ORDERED: ONDANSETRON HCL INJ/PF 4 MG/2 ML SDV IV PRN (09:17)
[2018-05-16] MEDS ORDERED: SIMETHICONE 80 MG TAB.CHEW PO PRN (09:29)
[2018-05-16] MEDS ORDERED: MEASLES,MUMPS&RUBELLA VACC/PF 0.5 ML VIAL SUBCUT PRN (09:29)
[2018-05-16] MEDS ORDERED: ACETAMINOPHEN 325 MG TABLET PO PRN (09:29)
[2018-05-16] MEDS ORDERED: ACETAMINOPHEN 1,000 MG/100 ML RTUPB IV PRN (09:29)
[2018-05-16] MEDS ORDERED: DIPH/PERTUSS(ACELL)/TETANUS VAC/PF 0.5 ML SYR (>=10YO) IM PRN (09:29)
[2018-05-16] MEDS ORDERED: OXYTOCIN/NORMAL SALINE 20 UNIT/1,000 ML RTUINJ IV PRN (09:29)
--- NOTE | 2018-05-16 09:32 | PDOC DELIVERY SUMMARY ---
Delivery Summary - Maternal Hx : II Hx # Term Pregnancies: 1 YAO: 05/19/18 Gestational Age: 39+3 Risk Factors: Previous , Other Ruptured Membranes: AROM Time of Rupture: 09:12 Fluids: Clear - Delivery Labor: Not In Labor Presentation: Vertex Heart Rate Monitoring: Done Pre-Operatively Support Person Present: Yes Location: OR : Scheduled Placenta: Within Normal Limits Nuchal Cord: No Delivery of Placenta Date: 05/16/18 Delivery of Placenta Time: 09:12 - Medications Type of Anesthesia:: Spinal - Infant Assess and Care Baby 1 Delivery of Date: 05/16/18 Delivery of Infant Time: 09:12 Preprinted Number On Band: [id number] Infant Mode of Transport: Bassinet Baby 1 Male Delivery of Infant Date: 05/16/18 Delivery of Time: 09:12 at 1 minute: 9 at 5 minutes: 9 Preprinted Number On Band: [id number] Skin to Skin: Yes Skin to Skin (Mins): 3 To Nursery At: 09:22 Mode of Transport: Bassinet - Delivery Personnel Arcade Attendant: JENAE AUGUSTE RN: TONI MOYA RN: MARY KAY ZAMORA MD: STACEY SHAFFER
--- NOTE | 2018-05-16 09:48 | OPERATIVE REPORT E ---
Operative Report NAME: KYLE NIEVES : 1990 AGE: 27Y DATE OF SURGERY: 05/16/2018 ROOM: 227 PREOPERATIVE DIAGNOSES: 1. INTRAUTERINE AT TERM. 2. PRIOR . 3. DESIRE FOR STERILIZATION. POSTOPERATIVE DIAGNOSES: 1. INTRAUTERINE AT TERM. 2. PRIOR . 3. DESIRE FOR STERILIZATION. OPERATION: Repeat low-transverse with delivery of viable male, Apgars of 9 and 9; weight is pending. SURGEON: David SHAFFER M.D. ANESTHESIA: Spinal. ESTIMATED BLOOD LOSS: Less than 800 mL. TISSUE REMOVED: Placenta. PROCEDURE: The patient was placed in a supine position, rolled on her right side, prepped and draped in the usual sterile fashion. An incision was made through an existing Pfannenstiel eschar and the incision extended through the subcutaneous tissue with sharp dissection. Fascia was sharply divided. Parietal peritoneum was entered with sharp dissection. The uterus was nicked in the midline and extended bilaterally. Infant was then delivered via Kiwi extraction through uterine abdominal incision. The Kiwi was needed for delivery due to body habitus and large baby and prior hardened tissue. The placenta was then manually extracted. The uterus was closed in 2 layers, the first a running stitch of 0 Vicryl and the second a Lembert stitch imbricating the first layer. The right fallopian tube was then banded in the mid portion with a good purchase of tissue being noted. The procedure was then repeated on the left, again with good purchase of tissue being noted. Both tubes were identified to the fimbria prior to and after banding. The fascia was then closed with 0 Vicryl and the skin with subcutaneous absorbable david. She tolerated it well and was taken to recovery in good condition. went to nursery in good condition. DICTATING PHYSICIAN: David SHAFFER M.D. [id number] PHY#: [id number] ID: [id number] JOB#: [id number] ACCT: [id number] cc:David SHAFFER M.D. >
[2018-05-16] MEDS: FENTANYL CITRATE INJ/PF 100 MCG/2 ML AMPUL ONE ×2 (10:00→10:15)
[2018-05-16] MEDS ORDERED: MORPHINE SULFATE 10 MG/ML INJ ONE (10:44)
[2018-05-16] MEDS: MORPHINE SULFATE 10 MG/ML INJ IM PRN ×2 (11:48→17:30)
[2018-05-16] MEDS ORDERED: PHENYLEPHRINE HCL INJ/PF 10 MG/1 ML SDV ONE (12:36)
[2018-05-16] MEDS ORDERED: KETOROLAC TROMETHAMINE INJ/PF 30 MG/1 ML SDV IV SCH (14:00)
[2018-05-16] MEDS: OXYCODONE-ACETAMINOPHEN 5-325 MG TABLET PO PRN ×2 (14:17→22:45)
[2018-05-16] MEDS: DOCUSATE SODIUM 100 MG CAPSULE PO SCH ×2 (16:26→17:29)
[2018-05-16] MEDS: PRENATAL VITAMIN W DHA CAPSULE PO SCH (16:26)
[2018-05-16] MEDS: KETOROLAC TROMETHAMINE INJ/PF 30 MG/1 ML SDV IV SCH (17:29)
[2018-05-17] MEDS: KETOROLAC TROMETHAMINE INJ/PF 30 MG/1 ML SDV IV SCH ×2 (02:07→09:14)
[2018-05-17] MEDS: OXYCODONE-ACETAMINOPHEN 5-325 MG TABLET PO PRN ×3 (04:44→16:30)
[2018-05-17] MEDS ORDERED: LIDOCAINE 0.5% INJ-PF (5 MG/ML) 50 ML SDV SUBCUT PRN (05:00)
[2018-05-17 06:05] LABS: HEMATOCRIT 29.8 % (36.0-47.0); HEMOGLOBIN 10.4 g/dL (12.0-15.5); MEAN CORPUSCULAR HEMOGLOBIN 27.1 pg (27.0-33.4); MEAN CORPUSCULAR HGB CONC 34.7 g/dL (32.0-36.0); MEAN CORPUSCULAR VOLUME 78 fl (80-97); PLATELET COUNT 276 10^3/uL (150-450); RED BLOOD COUNT 3.82 10^6/uL (3.72-5.28); RED CELL DISTRIBUTION WIDTH 17.1 % (11.5-14.0)
[2018-05-17] MEDS: DOCUSATE SODIUM 100 MG CAPSULE PO SCH ×2 (09:13→17:33)
[2018-05-17] MEDS: PRENATAL VITAMIN W DHA CAPSULE PO SCH (09:14)
[2018-05-17] MEDS ORDERED: IBUPROFEN 800 MG TABLET PO SCH (12:00)
[2018-05-17] MEDS ORDERED: PROMETHAZINE HCL 25 MG TABLET PO PRN (13:17)
--- NOTE | 2018-05-17 15:24 | PDOC PROGRESS REPORT ---
Subjective-OB Progress Note for:: 05/17/18 Subjective: Pt doing well, no concerns. She reports light bleeding, reg diet, +flatus and voiding without difficulty. Physical Exam (OB) Vital Signs: Temp Pulse Resp BP Pulse Ox 97.7 F 97 22 H 128/64 H 96 05/17/18 12:30 05/17/18 12:30 05/17/18 12:30 05/17/18 12:30 05/17/18 12:30 Intake & Output 05/16/18 05/17/18 05/18/18 06:59 06:59 06:59 Intake Total 4800 1000 Output Total 2804 Balance 1995 1000 Weight 102.06 kg - Dressing Removed: No Incision: Dressing Closure Type: Asha - Lochia Lochia Amount: Small 10-25 ml Lochia Color: Rubra/Red - Abdomen Description: Soft Hernia Present: No Fundal Description: Firm, Midline Fundal Height: u/u - u/2 Objective-Diagnostic Laboratory: 05/17/18 05:14 05/17/18 05:14 WBC 11.0 H RBC 3.82 Hgb 10.4 L Hct 29.8 L MCV 78 L MCH 27.1 MCHC 34.7 RDW 17.1 H Plt Count 276 Assessment and Plan(PN) - Assessment and Plan (1) Delivery by section of full-term Is this a current diagnosis for this admission?: Yes - Time Spent with Patient Time with patient: Less than 15 minutes Medications reviewed and adjusted accordingly: Yes - Disposition Anticipated Discharge: Home Within: within 24 hours
[2018-05-17] MEDS: IBUPROFEN 800 MG TABLET PO SCH ×2 (16:29→21:29)
[2018-05-18] MEDS: IBUPROFEN 800 MG TABLET PO SCH ×3 (03:09→14:31)
[2018-05-18] MEDS: OXYCODONE-ACETAMINOPHEN 5-325 MG TABLET PO PRN ×2 (07:19→12:24)
--- NOTE | 2018-05-18 09:25 | PDOC DISCHARGE SUMMARY ---
Final Diagnosis Discharge Date: 05/18/18 - Final Diagnosis (1) Delivery by section of full-term infant Is this a current diagnosis for this admission?: Yes Discharge Data - Discharge Medication Home Medications: Gabapentin [Neurontin 300 mg Capsule] 600 mg PO BID 06/29/17 Metoprolol Tartrate [Lopressor 25 mg Tablet] 1 tab PO DAILY 02/02/18 Vit,Calc76/Iron/Folic [Prenatabs Rx Tablet] 1 tab PO DAILY 02/02/18 Inhaler, Assist Devices [Aerochamber Mini] 1 puff PO ASDIR PRN 05/09/18 Glipizide [Glipizide Xl] 2.5 mg PO BID 05/15/18 Reason(s) for Admission: Ceasarean Section-Repeat Procedures: None Intrapartum Procedure(s): : Low Cervical, Transverse - Diagnosis Test Laboratory: Temp Pulse Resp BP Pulse Ox 98.4 F 93 18 125/63 98 05/18/18 08:30 05/18/18 08:30 05/18/18 08:30 05/18/18 08:30 05/18/18 08:30 05/15/18 05/15/18 05/17/18 09:48 10:00 05:14 RBC 4.46 3.82 Hgb 11.6 L 10.4 L Hct 34.4 L 29.8 L Urine Opiates Screen NEGATIVE - Discharge information/Instructions Discharge Activity: Balance Activity w/Rest, No Lifting Over 10 Pounds, No Lifting/Push/Pulling, Pelvic Rest, No tub bath Discharge Diet: Regular Disposition: HOME, SELF-CARE Follow up with: [facility] in: 5, Days
[2018-05-18] MEDS: DOCUSATE SODIUM 100 MG CAPSULE PO SCH (10:31)
[2018-05-18] MEDS: PRENATAL VITAMIN W DHA CAPSULE PO SCH (10:31)
[2018-05-18 13:38] VITALS: BP 100/62
== END 2018-05-18 15:30 | disposition home or self-care (01) | DRG 785 ==
LOC: 2S 05:57
PROVIDERS: ADMIT Obstetrics & Gynecology Gynecology; ATTEND Obstetrics & Gynecology Gynecology
PROC: 0UL70ZZ Occlusion of Bilateral Fallopian Tubes, Open Approach (ICD-10-PCS; 2018-05-16)
PROC: 4A1HXCZ Monitoring of Products of Conception, Cardiac Rate, External Approach (ICD-10-PCS; 2018-05-16)
PROC: 10D00Z1 Extraction of Products of Conception, Low, Open Approach (ICD-10-PCS; principal; 2018-05-16 09:00)
DX: O34.211 Maternal care for low transverse scar from previous cesarean delivery (principal); Z30.2 Encounter for sterilization; O24.425 Gestational diabetes mellitus in childbirth, controlled by oral hypoglycemic drugs; O99.334 Smoking (tobacco) complicating childbirth; F17.210 Nicotine dependence, cigarettes, uncomplicated; O99.214 Obesity complicating childbirth; E66.9 Obesity, unspecified; Z88.1 Allergy status to other antibiotic agents; Z88.0 Allergy status to penicillin; Z3A.39 39 weeks gestation of pregnancy; Z37.0 Single live birth
CPT/HCPCS: 1961; 36415; 59025; 80307; 81001; 82962; 85025; 85027; 86850; 86900; 86901; 93005; 93010; 94799; J0131; J1885; J2250; J2270; J2370; J2405; J2550; J2590; J3010; J3370; J3490; J7060; J7120

== ENCOUNTER 2018-07-06 11:15 | Emergency (ER) | payer MEDICAID ==
[2018-07-06 11:21] VITALS: BP 106/91
--- NOTE | 2018-07-06 11:25 | ER Document Report ---
ED Medical Screen (RME) - General Chief Complaint: Hand Swelling Stated Complaint: FINGER PAIN,SWELLING Time Seen by Provider: 07/06/18 11:22 Primary Care Provider: JULIA PATTON DO [Primary Care Provider] - Follow up as needed Mode of Arrival: Ambulatory Information source: Patient Notes: Patient is a 27-year-old female presenting to the emergency department with complaints of right third digit swelling, erythema and drainage. Patient reports that she bites her nails and had a similar infection approximately 2 weeks ago. She states at that time she put a needle in it which she states healed the infection and now she states that it is worse. Exam: Swelling and erythema noted to right third digit, small amount of drainage noted from the corner of the nail. Cap refill less than 3 seconds. I have greeted and performed a rapid initial assessment of this patient. A comprehensive ED assessment and evaluation of the patient, analysis of test results and completion of the medical decision making process will be conducted by additional ED providers. Dictation of this chart was performed using voice recognition software; therefore, there may be some unintended grammatical errors. - Related Data Allergies/Adverse Reactions: amoxicillin Allergy (Mild, Verified 07/06/18 11:15) cephalexin [From Keflex] Allergy (Unknown, Verified 07/06/18 11:15) rash Penicillins Allergy (Unknown, Verified 07/06/18 11:15) Past Medical History Pulmonary Medical History: Reports: Hx Asthma, Hx Bronchitis Neurological Medical History: Reports: Hx Migraine. Denies: Hx Seizures Renal/ Medical History: Denies: Hx Peritoneal Dialysis Skin Medical History: Reports Hx Cellulitis Psychiatric Medical History: Reports: Hx Anxiety, Hx Bipolar Disorder, Hx Depression, Hx Post Traumatic Stress Disorder, Hx Schizophrenia Past Surgical History: Reports: Hx Section - x1, Hx Oral Surgery - wisdom teeth - Immunizations Immunizations up to date: No Hx Diphtheria, Pertussis, Tetanus Vaccination: No Physical Exam - Vital signs Vitals: Temp Pulse Resp BP Pulse Ox 98.7 F 82 16 106/91 H 99 07/06/18 11:19 07/06/18 11:19 07/06/18 11:19 07/06/18 11:07/06/18 11:19 Course - Vital Signs Vital signs: Temp Pulse Resp BP Pulse Ox 98.7 F 82 16 106/91 H 99 07/06/18 11:19 07/06/18 11:19 07/06/18 11:19 07/06/18 11:19 07/06/18 11:19 Doctor's Discharge - Discharge Referrals: JULIA PATTON DO [Primary Care Provider] - Follow up as needed
--- NOTE | 2018-07-06 11:37 | ER Document Report ---
ED General - General Chief Complaint: Hand Swelling Stated Complaint: FINGER PAIN,SWELLING Time Seen by Provider: 07/06/18 11:22 Primary Care Provider: JULIA PATTON DO [ACTIVE STAFF] - Follow up in 3-5 days Mode of Arrival: Ambulatory Notes: Patient is a 27-year-old female that presents to the emergency department for chief complaint of right middle finger swelling. Patient states that she started noticing swelling in her finger over the past few days, and got significant worse, along side of her fingernail, she had 1 of these about 2 weeks ago that she tried treating at home but it did not completely resolve and it got worse again. She states that she bites her nails on a frequent basis. She has not been on antibiotics recently. She said some chills at home and thought she had a fever as well. She denies any streaking up her arm but does have pain that radiates up her hand from her fingernail. She denies any nausea, vomiting, abdominal pain, chest pain, shortness of breath or difficulty breathing. She currently rates her pain as a 7 out of 10 describes as a constant ache with some sharp pains that intermittently come on and off. Past Medical History: SVT, anxiety Past Surgical History: x2 Social History: Admits to smoking cigarettes, and occasional alcohol use, denies illicit drug use. Family History: Reviewed and noncontributory for presenting illness Allergies: Reviewed, see documented allergy list. REVIEW OF SYSTEMS: Other than noted above, the 12 point review of systems was reviewed with the patient and were negative, all pertinent findings are included in the HPI. PHYSICAL EXAMINATION: Vital signs reviewed, nursing noted reviewed. GENERAL: Well-appearing, well-nourished and in no acute distress. HEAD: Atraumatic, normocephalic. EYES: Eyes appear normal, sclera anicteric, conjunctiva are normal. ENT: Moist mucous membranes. NECK: Normal range of motion, supple without lymphadenopathy LUNGS: Breath sounds clear to auscultation bilaterally and equal. No wheezes rales or rhonchi. HEART: Regular rate and rhythm without murmurs EXTREMITIES: The patient's right middle finger, has a paronychia, mostly noted along the ulnar aspect, there is tenderness to palpation, and scant purulent drainage noted, there is no circumferential swelling or erythema, lymphangitis, or swelling on the flexor tendon surface or tenderness over the flexor tendon, the rest the patient's extremity exam is grossly unremarkable, and nontender, good range of motion, no pitting or edema. NEUROLOGICAL: No focal neurological deficits. Moves all extremities spontaneously Motor and sensory grossly intact on exam. PSYCH: Normal mood, normal affect. SKIN: Warm, Dry, normal turgor, no rashes or lesions noted on exposed skin TRAVEL OUTSIDE OF THE [place] IN LAST 30 DAYS: No - Related Data Allergies/Adverse Reactions: amoxicillin Allergy (Mild, Verified 07/06/18 11:15) cephalexin [From Keflex] Allergy (Unknown, Verified 07/06/18 11:15) rash Penicillins Allergy (Unknown, Verified 07/06/18 11:15) Past Medical History - General Information source: Patient - Social History Smoking Status: Current Every Day Smoker Chew tobacco use (# tins/day): No Frequency of alcohol use: Rare Drug Abuse: None Family History: Arthritis, CAD, COPD, CVA, DM, Hyperlipidemia, Hypertension, Thyroid Disfunction, Other - Depression, anxiety, and schizophrenia Patient has suicidal ideation: No Patient has homicidal ideation: No Pulmonary Medical History: Reports: Hx Asthma, Hx Bronchitis Neurological Medical History: Reports: Hx Migraine. Denies: Hx Seizures Renal/ Medical History: Denies: Hx Peritoneal Dialysis Skin Medical History: Reports Hx Cellulitis Psychiatric Medical History: Reports: Hx Anxiety, Hx Bipolar Disorder, Hx Depression, Hx Post Traumatic Stress Disorder, Hx Schizophrenia Past Surgical History: Reports: Hx Section - x1, Hx Oral Surgery - wisdom teeth - Immunizations Immunizations up to date: No Hx Diphtheria, Pertussis, Tetanus Vaccination: No Physical Exam - Vital signs Vitals: Temp Pulse Resp BP Pulse Ox 98.7 F 82 16 106/91 H 99 07/06/18 11:19 07/06/18 11:19 07/06/18 11:19 07/06/18 11:19 07/06/18 11:19 Course - Re-evaluation Re-evalutation: Patient's fingernail was treated with I&D of the paronychia, purulent drainage expelled as noted below, patient tolerated well, will discharge her home on doxycycline for 7 days, advised warm soapy soaks as well, and to follow-up with her primary care. Patient was agreeable to this plan of care and was discharged home. - Vital Signs Vital signs: Temp Pulse Resp BP Pulse Ox 98.7 F 82 16 106/91 H 99 07/06/18 11:19 07/06/18 11:19 07/06/18 11:19 07/06/18 11:19 07/06/18 11:19 Procedures - Incision and Drainage Right 3rd digit Type: Simple Anesthetic type: 1% Lidocaine Blade size: 11 I&D procedure: Betadine prep applied Incision Method: Incision made by scalpel Amount/type of drainage: 1mL Notes: 07/06/18 12:15 Risks and benefits of the procedure expanded the patient, patient's finger was prepped and draped in usual sterile and maximum barrier fashion, sterile gloves donned, patient's finger was cleaned, and prepped with Betadine, and using 1% lidocaine, digital block was performed, good anesthesia was obtained locally, and using a scalpel, 1 cm incision was made over the ulnar aspect of the patient's area of fluctuance of her paronychia, and purulent drainage was expelled, patient tolerated well, and no complications. Discharge - Discharge Clinical Impression: Paronychia Condition: Stable Disposition: HOME, SELF-CARE Instructions: Paronychia ([facility]) Additional Instructions: I recommend you soak your finger for 20 minutes, multiple times a day and warm soapy water, and then drive your finger off. Please complete the entire course of antibiotics and follow-up with the primary care physician. Prescriptions: Doxycycline Hyclate 100 mg PO BID #14 capsule Forms: Return to Work Referrals: JULIA PATTON DO [ACTIVE STAFF] - Follow up in 3-5 days
[2018-07-06] MEDS ORDERED: LIDOCAINE 1% INJ-PF (10 MG/ML) 30 ML SDV INJ ONE (11:50)
== END 2018-07-06 12:44 | disposition home or self-care (01) ==
LOC: ER 11:15
PROC: 0H9QXZZ Drainage of Finger Nail, External Approach (ICD-10-PCS; principal; 2018-07-06)
DX: L03.011 Cellulitis of right finger (principal); M79.89 Other specified soft tissue disorders; F17.210 Nicotine dependence, cigarettes, uncomplicated
CPT/HCPCS: 99283

== ENCOUNTER → 2018-08-15 | Day surgery (SDC) | payer MEDICAID ==
[~2018-08-15] MED LIST: ALBUTEROL SULFATE 0.083% NEB 2.5 MG/3 ML AMPUL NEB ONE; DEXAMETHASONE SOD PHOSPHATE INJ 4 MG/1 ML VIAL ONE; DIPHENHYDRAMINE HCL 50 MG/ML VIAL IV PRN; FAMOTIDINE INJ/PF 20 MG/2 ML SDV IV ONE; FENTANYL CITRATE INJ/PF 100 MCG/2 ML AMPUL IV PRN; FENTANYL CITRATE INJ/PF 100 MCG/2 ML AMPUL ONE; FENTANYL CITRATE INJ/PF 250 MCG/5 ML AMPULE ONE; IBUPROFEN 800 MG TABLET PO PRN; IBUPROFEN 800 MG TABLET PO SCH; KETOROLAC TROMETHAMINE 60 MG/2 ML SDV ONE; LIDOCAINE 1% INJ-PF (10 MG/ML) 30 ML SDV ONE; LIDOCAINE 2% INJ-PF (20 MG/ML) 2 ML AMPUL ONE; MEPERIDINE HCL/PF INJ 25 MG/1 ML DISP.SYRIN IV PRN; METOCLOPRAMIDE HCL INJ/PF 10 MG/2 ML SDV ONE; METOPROLOL TARTRATE 25 MG TABLET ONE; METOPROLOL TARTRATE 25 MG TABLET PO PRN; MIDAZOLAM 2 MG/2 ML INJ ONE; MORPHINE SULFATE 10 MG/ML INJ IV PRN; ONDANSETRON HCL 8 MG TABLET PO PRN; ONDANSETRON HCL INJ/PF 4 MG/2 ML SDV ONE; OXYCODONE-ACETAMINOPHEN 5-325 MG TABLET ONE; OXYCODONE-ACETAMINOPHEN 5-325 MG TABLET PO PRN; PROMETHAZINE HCL INJ 25 MG/1 ML VIAL IV PRN; PROPOFOL INJ 200 MG/20 ML VIAL IV ONE; ROCURONIUM BROMIDE INJ 50 MG/5 ML VIAL IV ONE; SCOPOLAMINE HYDROBROMIDE 1.5 MG PATCH.TD72 ONE; SUCCINYLCHOLINE CHLORIDE INJ 200 MG/10 ML VIAL ONE
[2018-08-15 08:23] LABS: HEMATOCRIT 36.3 % (36.0-47.0); MEAN CORPUSCULAR HEMOGLOBIN 26.6 pg (27.0-33.4); MEAN CORPUSCULAR HGB CONC 33.1 g/dL (32.0-36.0); MEAN CORPUSCULAR VOLUME 80 fl (80-97); PLATELET COUNT 282 10^3/uL (150-450); RED BLOOD COUNT 4.52 10^6/uL (3.72-5.28); RED CELL DISTRIBUTION WIDTH 15.8 % (11.5-14.0); WHITE BLOOD COUNT 5.5 10^3/uL (4.0-10.5)
[2018-08-15 08:37] LABS: APPEARANCE,URINE CLOUDY; BILIRUBIN,URINE NEGATIVE (NEGATIVE); COLOR,URINE YELLOW; GLUCOSE, URINE NEGATIVE (NEGATIVE); KETONES,URINE NEGATIVE (NEGATIVE); LEUKOCYTE ESTERASE,URINE SMALL (NEGATIVE); NITRITE,URINE NEGATIVE (NEGATIVE); PROTEIN,URINE NEGATIVE (NEGATIVE); URINE SPECIFIC GRAVITY 1.017
[2018-08-15 09:37] LABS: INTERNATIONAL RATION (INR) 0.93; PARTIAL THROMBOPLASTIN TIME 28.7 SEC (23.5-35.8); PROTHROMBIN TIME 12.9 SEC (11.4-15.4)
--- NOTE | 2018-08-15 12:24 | OPERATIVE REPORT E ---
Operative Report NAME: KYLE NIEVES : 1990 AGE: 27Y DATE OF SURGERY: 08/15/2018 ROOM: PREOPERATIVE DIAGNOSIS: MENORRHAGIA. POSTOPERATIVE DIAGNOSIS: MENORRHAGIA. OPERATION: Dilation and curettage, hysteroscopy, and ablation. SURGEON: David SHAFFER M.D. PROCEDURE: The patient was placed in a dorsal lithotomy position, prepped and draped in the usual sterile fashion. A speculum was placed. The cervix was grasped with a single-tooth tenaculum, and the uterus sounded to a depth of 10 cm. The os was dilated to a #8 dilator. Sharp curettage was then performed with a moderate amount of tissue being recovered. Following this, the ablation device was placed into the vagina. The length was 6.5 and width was 3.5, the power setting was 125 and the time of ablation was 1 minute and 17 seconds. Post ablation hysteroscopy was repeated with austin being noted. The single tooth tenaculum was removed and hemostasis was noted. Speculum was removed and procedure terminated. She was taken to recovery in good condition. DICTATING PHYSICIAN: David SHAFFER M.D. [id number] PHY#: [id number] ID: [id number] JOB#: [id number] ACCT: [id number] cc:David SHAFFER M.D. >
[2018-08-15 13:12] VITALS: BP 129/86
== END ==
LOC: OROUT 07:54
PROVIDERS: ATTEND Obstetrics & Gynecology Gynecology
DX: N92.0 Excessive and frequent menstruation with regular cycle (principal); N93.8 Other specified abnormal uterine and vaginal bleeding; N84.0 Polyp of corpus uteri; J45.909 Unspecified asthma, uncomplicated; F17.210 Nicotine dependence, cigarettes, uncomplicated; Z79.899 Other long term (current) drug therapy; Z88.0 Allergy status to penicillin
CPT/HCPCS: 36415; 85027; 85610; 85730; 81025; 81001; 88305 ×2; 00952; 58563; J2250; J3490 ×4; J1100; J1885; J3010 ×2; J2765; J0330; J2405; J2704; S0028; 952

== ENCOUNTER 2018-10-13 09:33 | Emergency (ER) | payer MEDICAID ==
[2018-10-13] MEDS ORDERED: IBUPROFEN 800 MG TABLET PO ONE (09:57)
[2018-10-13] MEDS ORDERED: LIDOCAINE 5% (700 MG) TRANSDERMAL ADH..PATCH TP ONE (09:57)
--- NOTE | 2018-10-13 10:43 | RADIOLOGY REPORT (SQ) ---
EXAM DESCRIPTION: T SPINE AP/LAT COMPLETED DATE/TIME: 10/13/2018 10:34 am REASON FOR STUDY: back pain COMPARISON: None. NUMBER OF VIEWS: Two views. TECHNIQUE: AP and lateral radiographic images acquired of the thoracic spine. LIMITATIONS: None. FINDINGS: MINERALIZATION: Normal. ALIGNMENT: Normal. No scoliosis. VERTEBRAE: No fracture or bone lesion. Maintained height, normal segmentation. DISCS: No significant loss of height or significant narrowing. No large osteophytes. HARDWARE: None in the spine. MEDIASTINUM AND SOFT TISSUES: Normal heart size and aortic contour. No soft tissue abnormality. VISUALIZED LUNG SNYDER: Clear. OTHER: No other significant finding. IMPRESSION: NO SIGNIFICANT RADIOGRAPHIC FINDING IN THE THORACIC SPINE. TECHNICAL DOCUMENTATION: JOB ID: [id number] [employer]- All Rights Reserved Reading location - IP/workstation name: [email or web address]
--- NOTE | 2018-10-13 10:45 | ER Document Report ---
HPI - HPI Patient complains to provider of: back pain Time Seen by Provider: 10/13/18 09:47 Onset: Other - 5 months Onset/Duration: Worse Quality of pain: Achy Pain Level: 3 Context: Patient presents complaining of back pain since the delivery of her last child 5 months ago. Patient states pain worsened over the past 3 to 4 days. Patient states back pain does radiate to the anterior aspect of her right lower extremity down to the level of her foot. Patient states that she was picking up boxes recently at work and that this aggravated her back pain. Patient denies any fever, urinary retention or incontinence. Patient denies any IV drug use. Associated Symptoms: Other - Back pain that radiates to right leg. denies: Fever, Headache Exacerbated by: Standing, Movement, Walking Relieved by: Denies Similar symptoms previously: Yes Recently seen / treated by doctor: No - ROS ROS below otherwise negative: Yes Systems Reviewed and Negative: Yes All other systems reviewed and negative - CONSTITUTIONAL Constitutional: DENIES: Fever, Chills - NEURO Neurology: DENIES: Headache, Weakness - GASTROINTESTINAL Gastrointestinal: DENIES: Nausea - URINARY Urinary: DENIES: Dysuria, Urgency, Frequency - REPRODUCTIVE Reproductive: DENIES: : - MUSCULOSKELETAL Musculoskeletal: REPORTS: Extremity pain - Right lower extremity, Back Pain. 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 Lives with: Family Family History: Arthritis, CAD, COPD, CVA, DM, Hyperlipidemia, Hypertension, Thyroid Disfunction, Other - Depression, anxiety, and schizophrenia Patient has suicidal ideation: No Patient has homicidal ideation: No Pulmonary Medical History: Reports: Hx Asthma, Hx Bronchitis Denies: Hx COPD, Hx Pneumonia Neurological Medical History: Reports: Hx Migraine Endocrine Medical History: Reports: Hx Diabetes Mellitus Type 2 Renal/ Medical History: Denies: Hx Peritoneal Dialysis Musculoskeletal Medical History: Denies Hx Arthritis - 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, Reports Other - Back pain Skin Medical History: Reports Hx Cellulitis Psychiatric Medical History: Reports: Hx Anxiety, Hx Bipolar Disorder, Hx Depression, Hx Post Traumatic Stress Disorder Past Surgical History: Reports: Hx Section - x2, Hx Oral Surgery - wisdom teeth - Immunizations Immunizations up to date: No Hx Diphtheria, Pertussis, Tetanus Vaccination: No Vertical Provider Document - CONSTITUTIONAL Agree With Documented VS: Yes Exam Limitations: No Limitations General Appearance: WD/WN, No Apparent Distress Notes: PHYSICAL EXAMINATION: GENERAL: Well-appearing, well-nourished and in no acute distress. HEAD: Atraumatic, normocephalic. EYES: sclera clear, anicteric, conjunctiva are normal. ENT: nares patent, Moist mucous membranes. NECK: Normal range of motion, supple no lymphadenopathy LUNGS: respirations unlabored HEART: Regular rate and rhythm without murmurs EXTREMITIES: Normal range of motion, no pitting or edema. No cyanosis. Gait normal, pt ambulates without difficulty BACK: Diffuse thoracolumbar tenderness. Thoracic and lumbar paraspinal te nderness, patient with thoracic and lumbar midline tenderness, no deformities or step-offs. No CVA tenderness. NEUROLOGICAL: Cranial nerves grossly intact. Normal speech, normal gait. No saddle anesthesia. PSYCH: Normal mood, normal affect. SKIN: Warm, Dry, normal turgor, no rashes or lesions noted. - INFECTION CONTROL TRAVEL OUTSIDE OF THE [place] IN LAST 30 DAYS: No Course - Re-evaluation Re-evalutation: 10/13/18 10:44 The patient presents with low back pain without signs of spinal cord compression, cauda equina syndrome, infection, aneurysm, or other serious etiology. The patient is neurologically intact. Given the extremely risk of these diagnoses further testing and evaluation for these possibilities does not appear to be indicated at this time. Patient has been instructed to return if the symptoms worsen or change in any way. - Vital Signs Vital signs: Temp Pulse Resp BP Pulse Ox 98.9 F 94 15 129/89 H 100 10/13/18 09:38 10/13/18 09:38 10/13/18 09:38 10/13/18 09:38 10/13/18 09:38 - Diagnostic Test Radiology reviewed: Reports reviewed Discharge - Discharge Clinical Impression: Back pain Qualifiers: Back pain location: low back pain Chronicity: unspecified Back pain laterality: unspecified Sciatica presence: with sciatica Sciatica laterality: sciatica of right side Qualified Code(s): M54.41 - Lumbago with sciatica, right side Sciatica Qualifiers: Laterality: right Qualified Code(s): M54.31 - Sciatica, right side Condition: Stable Disposition: HOME, SELF-CARE Instructions: Ice Packs ([facility]), Low Back Pain ([facility]), Sciatica ([facility]), Steroid Medication Additional Instructions: Return immediately for any new or worsening symptoms Followup with your primary care provider, call tomorrow to make a followup appointment Prescriptions: Hydrocodone/Acetaminophen [[place] 5-325 mg Tablet] 1 tab PO Q6 PRN #12 tablet PRN Reason: Prednisone [Deltasone 20 mg Tablet] 3 tab PO DAILY 5 Days tablet Forms: Smoking Cessation Education, Return to Work Referrals: BENEDICTO WOLFF MD [Primary Care Provider] - Follow up as needed
--- NOTE | 2018-10-13 10:47 | RADIOLOGY REPORT (SQ) ---
EXAM DESCRIPTION: L SPINE WHOLE COMPLETED DATE/TIME: 10/13/2018 10:34 am REASON FOR STUDY: back pain COMPARISON: Prior CT. Prior LS spine series. NUMBER OF VIEWS: Five views including obliques. TECHNIQUE: AP, lateral, oblique, and sacral radiographic images acquired of the lumbar spine. LIMITATIONS: None. FINDINGS: MINERALIZATION: Normal. SEGMENTATION: Normal. No transitional anatomy. ALIGNMENT: Normal. VERTEBRAE: Maintained height. No fracture or worrisome bone lesion. DISCS: Mild disc space narrowing L5-S1. POSTERIOR ELEMENTS: Intact. HARDWARE: None in the spine. PARASPINAL SOFT TISSUES: Normal. PELVIS: Intact as visualized. No fractures or worrisome bone lesions. SI joints intact. OTHER: No other significant finding. IMPRESSION: Mild L5-S1 disc space narrowing. TECHNICAL DOCUMENTATION: JOB ID: [id number] [employer]- All Rights Reserved Reading location - IP/workstation name: [email or web address]
[2018-10-13 11:14] VITALS: BP 122/86
== END 2018-10-13 11:12 | disposition home or self-care (01) ==
LOC: ER 09:33
DX: M54.41 Lumbago with sciatica, right side (principal); M54.9 Dorsalgia, unspecified; M79.604 Pain in right leg; M79.671 Pain in right foot; F17.200 Nicotine dependence, unspecified, uncomplicated; J45.909 Unspecified asthma, uncomplicated; E11.9 Type 2 diabetes mellitus without complications
CPT/HCPCS: 72110; 72070; J3490 ×2; 99283

== ENCOUNTER 2018-11-02 05:51 | Emergency (ER) | payer MEDICAID ==
[2018-11-02] MEDS ORDERED: ACETAMINOPHEN 325 MG TABLET PO ONE (08:39)
--- NOTE | 2018-11-02 08:46 | ER Document Report ---
ED Skin Rash/Insect Bite/Abscs - General Chief Complaint: Insect Bite Stated Complaint: POSSIBLE SPIDER BITE Primary Care Provider: BENEDICTO WOLFF MD [Primary Care Provider] - Follow up as needed Notes: 27 year old fair skinned female arrives with right lateral leg pain. Sees Dr. Garcia locally and Sunday (10/28) and was given rx for bactrim that she tells me she could not fill until Monday 10/30. She denies injury although there is concern for spider bite. Despite antibiotics feels achey and feverish. Can not tell if the lesion is increasing or decreasing in size. + MRSA in household contacts. TRAVEL OUTSIDE OF THE [place] IN LAST 30 DAYS: No - HPI Patient complains to provider of: Skin rash/lesion Onset: Last week Onset/Duration: Gradual Quality of pain: Achy, Sharp Severity: Severe Skin Temperature: Warm Quality of rash: Painful, Burning Identify cause: No - ? Spider bite Exacerbated by: Denies Relieved by: Denies - Related Data Allergies/Adverse Reactions: amoxicillin Allergy (Mild, Verified 11/02/18 07:05) cephalexin [From Keflex] Allergy (Unknown, Verified 11/02/18 07:05) rash Penicillins Allergy (Unknown, Verified 11/02/18 07:05) Past Medical History - Social History Smoking Status: Current Every Day Smoker Frequency of alcohol use: Occasional Drug Abuse: None Family History: Arthritis, CAD, COPD, CVA, DM, Hyperlipidemia, Hypertension, Thyroid Disfunction, Other - Depression, anxiety, and schizophrenia Patient has suicidal ideation: No Patient has homicidal ideation: No - Past Medical History Cardiac Medical History: Denies: Hx Heart Attack, Hx Hypertension - pt states low BP Pulmonary Medical History: Reports: Hx Asthma, Hx Bronchitis Denies: Hx COPD, Hx Pneumonia Neurological Medical History: Reports: Hx Migraine. 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 Skin Medical History: Reports Hx Cellulitis Psychiatric Medical History: Reports: Hx Anxiety, Hx Bipolar Disorder, Hx Depression, Hx Post Traumatic Stress Disorder Past Surgical History: Reports: Hx Section - x2, Hx Oral Surgery - wisdom teeth - Immunizations Immunizations up to date: No Hx Diphtheria, Pertussis, Tetanus Vaccination: No Review of Systems - Review of Systems Constitutional: No symptoms reported EENT: No symptoms reported Cardiovascular: No symptoms reported Respiratory: No symptoms reported Gastrointestinal: No symptoms reported Genitourinary: No symptoms reported Female Genitourinary: No symptoms reported Musculoskeletal: No symptoms reported Skin: See HPI Hematologic/Lymphatic: No symptoms reported Neurological/Psychological: No symptoms reported Physical Exam - Vital signs Vitals: Temp Pulse Resp BP Pulse Ox 98.2 F 108 H 20 117/82 98 11/02/18 06:00 11/02/18 06:00 11/02/18 06:00 11/02/18 06:00 11/02/18 06:00 Interpretation: Normal - General General appearance: Appears well, Alert - HEENT Head: Normocephalic, Atraumatic Eyes: Normal Pupils: PERRL - Respiratory Respiratory status: No respiratory distress Chest status: Nontender Breath sounds: Normal Chest palpation: Normal - Cardiovascular Rhythm: Regular Heart sounds: Normal auscultation Murmur: No - Abdominal Inspection: Normal Distension: No distension Bowel sounds: Normal Tenderness: Nontender Organomegaly: No organomegaly - Back Back: Normal, Nontender - Extremities General upper extremity: Normal inspection, Nontender, Normal color, Normal ROM, Normal temperature General lower extremity: Normal inspection, Nontender, Normal color, Normal ROM, Normal temperature, Normal weight bearing. No: Katie's sign - Neurological Neuro grossly intact: Yes Cognition: Normal Orientation: AAOx4 Warren Coma Scale Eye Opening: Spontaneous Warren Coma Scale Verbal: Oriented Warren Coma Scale Motor: Obeys Commands Warren Coma Scale Total: 15 Speech: Normal Motor strength normal: LUE, RUE, LLE, RLE Sensory: Normal - Psychological Associated symptoms: Normal affect, Normal mood - Skin Skin Temperature: Warm Skin Moisture: Dry Skin Color: Other - right lateral thigh with redness approximately 5 cm and small (1 cm) central eschar/ necrosis. No fluctuence. Blanches. No streaking. Course - Vital Signs Vital signs: Temp Pulse Resp BP Pulse Ox 98.2 F 108 H 20 117/82 98 11/02/18 06:00 11/02/18 06:00 11/02/18 06:00 11/02/18 06:00 11/02/18 06:00 - Laboratory Result Diagrams: 11/02/18 09:00 11/02/18 09:00 Laboratory results interpreted by me: 11/02/18 11/02/18 09:00 09:00 Hgb 11.9 L Hct 35.9 L MCV 78 L MCH 25.8 L RDW 15.4 H Eos % (Auto) 6.8 H BUN 5 L Total Protein 6.2 L Albumin 3.4 L Discharge - Discharge Clinical Impression: Cellulitis Qualifiers: Site of cellulitis: extremity Site of cellulitis of extremity: lower extremity Laterality: right Qualified Code(s): L03.115 - Cellulitis of right lower limb Condition: Good Disposition: HOME, SELF-CARE Instructions: Cellulitis ([facility]) Additional Instructions: See your doctor in followup. Take tylenol or ibuprofen for pain. Take the antibiotics as directed. Please return here for any problems or any concerns. Prescriptions: Clindamycin HCl 300 mg PO TID #30 capsule Referrals: BENEDICTO WOLFF MD [Primary Care Provider] - Follow up as needed
[2018-11-02 09:12] LABS: ABSOLUTE EOSINOPHILS # (AUTO) 0.4 10^3/uL (0.0-0.6); ABSOLUTE LYMPHOCYTES (AUTO) 0.8 10^3/uL (0.5-4.7); ABSOLUTE MONOCYTES (AUTO) 0.2 10^3/uL (0.1-1.4); EOSINOPHILS % (AUTO) 6.8 % (0-6); HEMATOCRIT 35.9 % (36.0-47.0); HEMOGLOBIN 11.9 g/dL (12.0-15.5); LYMPHOCYTES % (AUTO) 13.8 % (13-45); MEAN CORPUSCULAR HGB CONC 33.2 g/dL (32.0-36.0); TOTAL CELLS COUNTED % (AUTO) 100 %
[2018-11-02 09:17] LABS: ABSOLUTE NEUT (AUTO) 4.4 10^3/uL (1.7-8.2); BASOPHILS % (AUTO) 0.3 % (0-2); MEAN CORPUSCULAR HEMOGLOBIN 25.8 pg (27.0-33.4); MEAN CORPUSCULAR VOLUME 78 fl (80-97); MONOCYTES % (AUTO) 3.8 % (3-13); PLATELET COUNT 237 10^3/uL (150-450); RED BLOOD COUNT 4.61 10^6/uL (3.72-5.28); RED CELL DISTRIBUTION WIDTH 15.4 % (11.5-14.0); SEGMENTED NEUTROPHILS % (AUTO) 75.3 % (42-78); WHITE BLOOD COUNT 5.8 10^3/uL (4.0-10.5)
[2018-11-02 09:28] LABS: ALBUMIN 3.4 g/dL (3.5-5.0); ALKALINE PHOSPHATASE 70 U/L (38-126); ANION GAP 7 (5-19); ASPARTATE AMINO TRANSFERASE 15 U/L (14-36); BILIRUBIN,DIRECT 0.3 mg/dL (0.0-0.4); BILIRUBIN,TOTAL 0.6 mg/dL (0.2-1.3); BLOOD UREA NITROGEN 5 mg/dL (7-20); CALCIUM 8.7 mg/dL (8.4-10.2); CARBON DIOXIDE 24 mmol/L (22-30); CHLORIDE 106 mmol/L (98-107); GLUCOSE 98 mg/dL (75-110); POTASSIUM 3.6 mmol/L (3.6-5.0); TOTAL PROTEIN 6.2 g/dL (6.3-8.2)
[2018-11-02 11:37] VITALS: BP 110/57
== END 2018-11-02 11:37 | disposition home or self-care (01) ==
LOC: ER 05:51
DX: L03.115 Cellulitis of right lower limb (principal); F17.200 Nicotine dependence, unspecified, uncomplicated; J45.909 Unspecified asthma, uncomplicated; E11.9 Type 2 diabetes mellitus without complications; Z20.818 Contact with and (suspected) exposure to other bacterial communicable diseases; Z88.0 Allergy status to penicillin; Z88.1 Allergy status to other antibiotic agents
CPT/HCPCS: 36415; 83605; 85025; 80053; J3490; 99281

== ENCOUNTER 2018-12-21 01:42 | Emergency (ER) | payer MEDICAID ==
--- NOTE | 2018-12-21 02:28 | ER Document Report ---
HPI - HPI Time Seen by Provider: 12/21/18 02:15 Pain Level: 4 Context: Patient is a 28-year-old female that comes to the emergency department for chief complaint of 5 days of sick symptoms including cough, congestion, developing ear pain, and fever most recently yesterday. She states she is now coughing up greenish sputum. She reports some hoarseness but denies specific sore throat, she states she has been feeling like she has been wheezing as well. She does have a history of asthma as a child but not as an adult and is on no medications for this. She admits to smoking. She denies reporting a tubal ligation. - CONSTITUTIONAL Constitutional: REPORTS: Fever - 103, Chills - EENT EENT: REPORTS: Sore Throat, Ear Pain - RESPIRATORY Respiratory: REPORTS: Coughing - REPRODUCTIVE Reproductive: DENIES: : Past Medical History - General Information source: Patient - Social History Smoking Status: Current Every Day Smoker Smoking Education Provided: Yes - <3 min Frequency of alcohol use: None Drug Abuse: None Lives with: Family Family History: Arthritis, CAD, COPD, CVA, DM, Hyperlipidemia, Hypertension, Thyroid Disfunction, Other - Depression, anxiety, and schizophrenia Patient has suicidal ideation: No Patient has homicidal ideation: No - Past Medical History Cardiac Medical History: Denies: Hx Heart Attack, Hx Hypertension - pt states low BP Pulmonary Medical History: Reports: Hx Asthma, Hx Bronchitis Denies: Hx COPD, Hx Pneumonia Neurological Medical History: Reports: Hx Migraine. 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 Skin Medical History: Reports Hx Cellulitis Psychiatric Medical History: Reports: Hx Anxiety, Hx Bipolar Disorder, Hx Depression, Hx Post Traumatic Stress Disorder Past Surgical History: Reports: Hx Section - x2, Hx Oral Surgery - wisdom teeth - Immunizations Immunizations up to date: No Hx Diphtheria, Pertussis, Tetanus Vaccination: No Vertical Provider Document - CONSTITUTIONAL General Appearance: WD/WN, No Apparent Distress - INFECTION CONTROL TRAVEL OUTSIDE OF THE [place] IN LAST 30 DAYS: No - HEENT HEENT: Atraumatic, Normocephalic. negative: Normal ENT Exam - Some mild sinus congestion without tender sinuses. Oral pharyngeal exam unremarkable. Right ear with a small effusion behind the tympanic membrane, left ear with otitis media with erythema and loss of landmarks. Unremarkable ENT exam otherwise - NECK Neck: Normal Inspection - RESPIRATORY Respiratory: Breath Sounds Normal, No Respiratory Distress, Other - Some occasional congested coughing episodes, no tachypnea, wheezing, or respiratory distress - CARDIOVASCULAR Cardiovascular: Regular Rate, Regular Rhythm - GI/ABDOMEN Gastrointestinal: Abdomen Soft, Abdomen Non-Tender - BACK Back: Normal Inspection - MUSCULOSKELETAL/EXTREMETIES Musculoskeletal/Extremeties: MAEW, FROM, Non-Tender - NEURO Level of Consciousness: Awake, Alert, Appropriate - DERM Integumentary: Warm, Dry, No Rash Course - Re-evaluation Re-evalutation: Influenza testing negative, chest x-ray negative, vital signs unremarkable. Patient with frequent coughing, some congestion, otitis media on the left. Clinical presentation is most consistent with viral illness, bronchitis, and developed left otitis media. Patient will be treated for this because of her worsening ear pain which is been ongoing without resolution. Discussed treatments, smoking cessation, follow-up, and return precautions at length. Patient states appreciation and agreement. Stable at time of discharge. - Vital Signs Vital signs: Temp Pulse Resp BP Pulse Ox 98.7 F 100 16 146/89 H 98 12/21/18 01:48 12/21/18 01:48 12/21/18 01:48 12/21/18 01:48 12/21/18 01:48 Discharge - Discharge Clinical Impression: Cough Upper respiratory infection Qualifiers: URI type: unspecified URI Qualified Code(s): J06.9 - Acute upper respiratory infection, unspecified Otitis media Qualifiers: Otitis media type: suppurative Chronicity: acute Laterality: left Recurrence: non-recurrent Spontaneous tympanic membrane rupture: without spontaneous rupture Qualified Code(s): H66.002 - Acute suppurative otitis media without spontaneous rupture of ear drum, left ear Condition: Stable Disposition: HOME, SELF-CARE Additional Instructions: Your chest x-ray is negative, your influenza test is negative. Your evaluation indicates a viral upper respiratory infection causing bronchitis and also congestion leading to a left-sided ear infection. Take antibiotics as prescribed, take prednisone as prescribed, use Flonase nasal spray as prescribed. I recommend antihistamine such as diphenhydramine at night. Symptoms should gradually resolve but will persist for a little while. Stop smoking. Follow-up with primary care. Return if you worsen including spiking fevers, difficulty breathing, or any other concerning or worsening symptoms. Prescriptions: RX: Prednisone [Deltasone 20 mg Tablet] 2 tab PO DAILY 5 Days #10 tablet Fluticasone Propionate [Flonase Nasal [place] 50 Mcg/[place] 16 gm] 2 sprays NASL Q12 #1 inhaler RX: Azithromycin [Zithromax 250 mg Tablet] 250 mg PO ASDIR PRN #4 tablet PRN Reason: Forms: Return to Work Referrals: BENEDICTO WOLFF MD [Primary Care Provider] - Follow up as needed
--- NOTE | 2018-12-21 03:20 | RADIOLOGY REPORT (SQ) ---
Chest 2 view on 12/21/2018 at 2:57 AM CLINICAL INDICATION: Fever, cough COMPARISON: 05/31/2017 FINDINGS: The lungs are clear. Cardiac, hilar and mediastinal contours are within normal limits. Pulmonary vascularity is within normal limits. No bony abnormality is noted. IMPRESSION: No active disease.
[2018-12-21 03:21] LABS: A TYPE INFLUENZA AG NEGATIVE (NEGATIVE); B INFLUENZA AG NEGATIVE (NEGATIVE)
[2018-12-21] MEDS ORDERED: AZITHROMYCIN 250 MG TABLET PO ONE (03:37)
[2018-12-21 03:52] VITALS: BP 124/73
== END 2018-12-21 03:52 | disposition home or self-care (01) ==
LOC: ER 01:42
DX: H66.002 Acute suppurative otitis media without spontaneous rupture of ear drum, left ear (principal); J06.9 Acute upper respiratory infection, unspecified; R05 Cough; R09.81 Nasal congestion; H92.09 Otalgia, unspecified ear; R50.9 Fever, unspecified; R49.0 Dysphonia; F17.200 Nicotine dependence, unspecified, uncomplicated; J45.909 Unspecified asthma, uncomplicated; E11.9 Type 2 diabetes mellitus without complications
CPT/HCPCS: 87804; 71046; Q0144; 99283; 99406

== ENCOUNTER 2019-04-14 17:54 | Emergency (ER) | payer MEDICAID ==
[2019-04-14] MEDS ORDERED: ONDANSETRON 4 MG TAB.RAPDIS PO ONE (19:08)
--- NOTE | 2019-04-14 19:11 | ER Document Report ---
ED Medical Screen (RME) - General Chief Complaint: Knee Pain Stated Complaint: LEFT KNEE PAIN, SWELLING Time Seen by Provider: 04/14/19 19:07 Primary Care Provider: BENEDICTO WOLFF MD [Primary Care Provider] - Follow up as needed Notes: Patient is a 28-year-old female with a history of type 2 diabetes, SVT, depression, bipolar, anxiety, ADHD who presents emergency department with a chief complaint of left knee pain. Patient reports about 1 week ago she noticed a pimple below the left knee. She reports increased redness and swelling since then. Patient is unsure if she got bit by something. Patient reports she does have a history of abscesses which normally occur to her inner thighs as well as her breast. Patient denies drainage. Patient denies a history of MRSA but is unsure if she is ever been tested. Patient reports severe pain to the left knee. Patient reports a fever of 102 at home with sweats and chills. Patient reports nausea without vomiting or diarrhea. TRAVEL OUTSIDE OF THE [place] IN LAST 30 DAYS: No - Related Data Allergies/Adverse Reactions: amoxicillin Allergy (Mild, Verified 11/02/18 07:05) cephalexin [From Keflex] Allergy (Unknown, Verified 11/02/18 07:05) rash Penicillins Allergy (Unknown, Verified 11/02/18 07:05) Past Medical History - Past Medical History Cardiac Medical History: Denies: Hx Heart Attack, Hx Hypertension - pt states low BP Pulmonary Medical History: Reports: Hx Asthma, Hx Bronchitis Denies: Hx COPD, Hx Pneumonia Neurological Medical History: Reports: Hx Migraine. Denies: Hx Seizures Endocrine Medical History: Reports: Hx Diabetes Mellitus Type 2 Renal/ Medical History: Denies: Hx Peritoneal Dialysis Musculoskeltal Medical History: Denies Hx Arthritis - 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 Skin Medical History: Reports Hx Cellulitis Psychiatric Medical History: Reports: Hx Anxiety, Hx Bipolar Disorder, Hx Depression, Hx Post Traumatic Stress Disorder Past Surgical History: Reports: Hx Section - x2, Hx Oral Surgery - wisdom teeth - Immunizations Immunizations up to date: No Hx Diphtheria, Pertussis, Tetanus Vaccination: No Physical Exam - Vital signs Vitals: Temp Pulse Resp BP Pulse Ox 98.5 F 80 20 141/82 H 98 04/14/19 18:09 04/14/19 18:09 04/14/19 18:09 04/14/19 18:09 04/14/19 18:09 Course - Re-evaluation Re-evalutation: 04/14/19 19:09 Patient has a firm area of erythema and extreme tenderness to the left anterior proximal aspect of the tibia and fibula. There is no drainage. Will obtain basic labs as the patient reports a fever of 102 and is a known diabetic. Patient unable to tolerate much of an examination in triage as she reports severe pain to the area with palpation. There is no red streaking up the leg. Patient's not tachycardic or febrile at this time. Patient's last dose of Aleve was around 3:30 PM this afternoon. Patient most likely will require an incision and drainage with oral antibiotics. I have greeted and performed a rapid initial assessment of this patient. A comprehensive ED assessment and evaluation of the patient, analysis of test results and completion of the medical decision making process will be conducted by additional ED providers. - Vital Signs Vital signs: Temp Pulse Resp BP Pulse Ox 98.5 F 80 20 141/82 H 98 04/14/19 18:09 04/14/19 18:09 04/14/19 18:09 04/14/19 18:09 04/14/19 18:09 Doctor's Discharge - Discharge Referrals: BENEDICTO WOLFF MD [Primary Care Provider] - Follow up as needed
[2019-04-14 19:42] LABS: ABSOLUTE BASOPHILS # (AUTO) 0.1 10^3/uL (0.0-0.2); ABSOLUTE EOSINOPHILS # (AUTO) 0.1 10^3/uL (0.0-0.6); ABSOLUTE LYMPHOCYTES (AUTO) 3.1 10^3/uL (0.5-4.7); ABSOLUTE MONOCYTES (AUTO) 0.5 10^3/uL (0.1-1.4); BASOPHILS % (AUTO) 0.6 % (0-2); EOSINOPHILS % (AUTO) 1.5 % (0-6); HEMOGLOBIN 12.4 g/dL (12.0-15.5); LYMPHOCYTES % (AUTO) 35.5 % (13-45); MEAN CORPUSCULAR HEMOGLOBIN 26.6 pg (27.0-33.4); MEAN CORPUSCULAR HGB CONC 33.4 g/dL (32.0-36.0); MEAN CORPUSCULAR VOLUME 80 fl (80-97); MONOCYTES % (AUTO) 5.2 % (3-13); PLATELET COUNT 305 10^3/uL (150-450); RED BLOOD COUNT 4.66 10^6/uL (3.72-5.28); RED CELL DISTRIBUTION WIDTH 16.2 % (11.5-14.0); SEGMENTED NEUTROPHILS % (AUTO) 57.2 % (42-78); TOTAL CELLS COUNTED % (AUTO) 100 %; WHITE BLOOD COUNT 8.8 10^3/uL (4.0-10.5)
[2019-04-14 20:06] LABS: ALBUMIN 4.1 g/dL (3.5-5.0); ALKALINE PHOSPHATASE 82 U/L (38-126); ANION GAP 7 (5-19); ASPARTATE AMINO TRANSFERASE 15 U/L (14-36); BILIRUBIN,TOTAL 0.2 mg/dL (0.2-1.3); BLOOD UREA NITROGEN 7 mg/dL (7-20); CALCIUM 8.9 mg/dL (8.4-10.2); CARBON DIOXIDE 27 mmol/L (22-30); CHLORIDE 105 mmol/L (98-107); GLUCOSE 100 mg/dL (75-110); POTASSIUM 4.4 mmol/L (3.6-5.0); TOTAL PROTEIN 7.2 g/dL (6.3-8.2)
[2019-04-14] MEDS ORDERED: LIDOCAINE 1%/EPINEPHRINE INJ 20 ML VIAL INJ ONE (21:27)
[2019-04-14] MEDS ORDERED: OXYCODONE-ACETAMINOPHEN 5-325 MG TABLET PO ONE (21:28)
[2019-04-14] MEDS ORDERED: DOXYCYCLINE HYCLATE 100 MG TABLET PO ONE (21:28)
--- NOTE | 2019-04-14 21:29 | ER Document Report ---
ED Skin Rash/Insect Bite/Abscs - General Chief Complaint: Abscess Stated Complaint: LEFT KNEE PAIN, SWELLING Time Seen by Provider: 04/14/19 19:07 Primary Care Provider: BENEDICTO WOLFF MD [Primary Care Provider] - Follow up as needed Notes: CHIEF COMPLAINT: Abscess left knee for 1 week HPI: 28-year-old type II diabetic who smells strongly of cigarette smoke presenting for evaluation of an abscess over the anterior left knee for 1 week. Reports a subjective fever last night. States she has prior history of skin abscesses none of which have had to be incised and drained previously. Has not seen her PCP in the last week for evaluation of symptoms ROS: See HPI - all other systems were reviewed and are otherwise negative Constitutional: Subjective fever Eyes: no drainage, no blurred vision ENT: no runny nose, no sore throat Cardiovascular: no chest pain Resp: no SOB, no cough GI: no vomiting, no diarrhea, no abdominal pain : no dysuria Integumentary: Positive abscess Allergy: no hives Musculoskeletal: Positive extremity pain or swelling Neurological: no numbness/tingling, no weakness MEDICATIONS: I agree with the patient medications as charted by the RN. ALLERGIES: I agree with the allergies as charted by the RN. PAST MEDICAL HISTORY/PAST SURGICAL HISTORY: Reviewed and agree as charted by RN. SOCIAL HISTORY: Reviewed and agree as charted by RN. FAMILY HISTORY: No significant familial comorbid conditions directly related to patient complaint EXAM: Reviewed vital signs as charted by RN. CONSTITUTIONAL: Alert and oriented and responds appropriately to questions. Well-appearing; well-nourished, mild distress secondary to pain HEAD: Normocephalic; atraumatic EYES: Conjunctivae clear, sclerae non-icteric ENT: normal nose; no rhinorrhea; moist mucous membranes NECK: Supple without meningismus CARD: symmetric distal pulses RESP: Normal chest excursion without splinting or tachypnea ABD/GI: Obese; non-distended; soft BACK: The back appears normal EXT: Slightly limited flexion of the left knee secondary to pain. There is a raised erythematous area with a purulent center noted over the anterior left knee, this area measures approximately 3.5 cm x 2.5 cm. There is some overlying erythema. SKIN: Normal color for age and race; warm; dry; good turgor NEURO: Moves all extremities equally; Motor and sensory function intact PSYCH: The patient's mood and manner are appropriate. Grooming and personal hygiene are appropriate. MDM: 28-year-old female with an abscess over the anterior knee low suspicion for septic joint. She is afebrile here. We will plan to incise and drain the area, place patient on antibiotics for MRSA coverage, refer to PCP for follow-up TRAVEL OUTSIDE OF THE [place] IN LAST 30 DAYS: No - Related Data Allergies/Adverse Reactions: amoxicillin Allergy (Mild, Verified 11/02/18 07:05) cephalexin [From Keflex] Allergy (Unknown, Verified 11/02/18 07:05) rash Penicillins Allergy (Unknown, Verified 11/02/18 07:05) Home Medications: metoprolol, metformin, zoloft, adderall, gabapentin Past Medical History - Social History Smoking Status: Current Every Day Smoker Chew tobacco use (# tins/day): No Frequency of alcohol use: Social Drug Abuse: None Family History: Arthritis, CAD, COPD, CVA, DM, Hyperlipidemia, Hypertension, Thyroid Disfunction, Other - Depression, anxiety, and schizophrenia Patient has suicidal ideation: No Patient has homicidal ideation: No - Past Medical History Cardiac Medical History: Denies: Hx Heart Attack, Hx Hypertension - pt states low BP Pulmonary Medical History: Reports: Hx Asthma, Hx Bronchitis Denies: Hx COPD, Hx Pneumonia Neurological Medical History: Reports: Hx Migraine. 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 Skin Medical History: Reports Hx Cellulitis Psychiatric Medical History: Reports: Hx Anxiety, Hx Bipolar Disorder, Hx Depression, Hx Post Traumatic Stress Disorder Past Surgical History: Reports: Hx Section - x2, Hx Oral Surgery - wisdom teeth - Immunizations Immunizations up to date: No Hx Diphtheria, Pertussis, Tetanus Vaccination: No Physical Exam - Vital signs Vitals: Temp Pulse Resp BP Pulse Ox 98.5 F 80 20 141/82 H 98 04/14/19 18:09 04/14/19 18:09 04/14/19 18:09 04/14/19 18:09 04/14/19 18:09 Course - Vital Signs Vital signs: Temp Pulse Resp BP Pulse Ox 98.5 F 80 20 141/82 H 98 04/14/19 18:09 04/14/19 18:09 04/14/19 18:09 04/14/19 18:09 04/14/19 18:09 - Laboratory Result Diagrams: 04/14/19 19:20 04/14/19 19:20 Laboratory results interpreted by me: 04/14/19 19:20 MCH 26.6 L RDW 16.2 H Procedures - Incision and Drainage Left Anterior Knee Time completed: 21:59 Type: Simple Anesthetic type: 1% Lidocaine w/epi mL's of anesthetic: 2 Blade size: 11 I&D procedure: Chlorprep applied, Iodoform packing placed, Sterile dressing applied Incision Method: Incision made by scalpel Amount/type of drainage: 2 purulent Notes: 04/14/19 22:00 wound culture obtained Discharge - Discharge Clinical Impression: Abscess of knee, left Condition: Stable Disposition: HOME, SELF-CARE Instructions: MRSA Cellulitis ([facility]), Abscess ([facility]) Additional Instructions: 1. packing out in 2-3 days 2. follow up with your primary care provider for further evaluation in 2-3 days 3. medicines as prescribed, take Tylenol or Motrin for pain 4. return sooner for any worsening condition, increasing redness or onset of fever 5. apply warm compresses to the wound area 2-3 times daily Prescriptions: Hydrocodone/Acetaminophen [[place] 5-325 mg Tablet] 1 tab PO Q4 PRN #15 tablet PRN Reason: Doxycycline Hyclate [Vibramycin] 100 mg PO BID #20 capsule Referrals: BENEDICTO WOLFF MD [Primary Care Provider] - Follow up as needed
[2019-04-14] MEDS ORDERED: HYDROCODONE/ACETAMINOPHEN 5-325 MG (6 TAB/ER DISP) PO PRN (22:02)
[2019-04-14 22:34] VITALS: BP 138/78
== END 2019-04-14 22:33 | disposition home or self-care (01) ==
LOC: ER 17:54
PROC: 0H9LXZZ Drainage of Left Lower Leg Skin, External Approach (ICD-10-PCS; principal; 2019-04-14)
DX: L02.416 Cutaneous abscess of left lower limb (principal); M25.562 Pain in left knee; M79.89 Other specified soft tissue disorders; R50.9 Fever, unspecified; E11.9 Type 2 diabetes mellitus without complications; J45.909 Unspecified asthma, uncomplicated
CPT/HCPCS: 36415; 87070; 87205; 85025; 87077; 80053; 10060; J3490 ×2; S0119; 87186; 99283

== ENCOUNTER 2019-08-13 16:28 | Observation (INO) | payer MEDICAID ==
[2019-08-13] MEDS ORDERED: ONDANSETRON HCL INJ/PF 4 MG/2 ML SDV IV ONE (17:30)
[2019-08-13] MEDS ORDERED: RINGERS SOLUTION,LACTATED 1,000 ML IV ONE (17:30)
[2019-08-13] MEDS ORDERED: MORPHINE SULFATE 10 MG/ML INJ IV ONE (17:30)
[2019-08-13] MEDS ORDERED: VANCOMYCIN HCL INJ 1000 MG VIAL IV ONE (17:31)
--- NOTE | 2019-08-13 17:33 | ER Document Report ---
ED Medical Screen (RME) - General Chief Complaint: Leg Swelling Stated Complaint: SPIDER BITE FEVER VOMITTING Time Seen by Provider: 08/13/19 17:24 Primary Care Provider: BENEDICTO WOLFF MD [Primary Care Provider] - Follow up as needed Mode of Arrival: Wheelchair Notes: HPI; 28-year-old female presents emergency room complaining of worsening cellulitis to her right lower leg. Patient states she was seen by her primary care physician week ago for possible spider bite was discharged home on Bactrim. States she now has 2 holes in the area with purulent drainage as well as increased redness and swelling. Fevers of 102 with chills. Complains of nausea and vomiting. PE: Alert and oriented x3. Moderate distress noted. Right lower leg with 5 x 7 cm area of erythema center of the wound with 2 open draining sores. It is warm and tender to palpation. . I have greeted and performed a rapid initial assessment of this patient. A comprehensive ED assessment and evaluation of the patient, analysis of test results and completion of the medical decision making process will be conducted by additional ED providers. I have specifically instructed the patient or family members with the patient to immediately return to any nursing staff should anything change in the patient's condition or with their chief complaint. TRAVEL OUTSIDE OF THE [place] IN LAST 30 DAYS: No - Related Data Allergies/Adverse Reactions: amoxicillin Allergy (Mild, Verified 08/13/19 17:23) cephalexin [From Keflex] Allergy (Unknown, Verified 08/13/19 17:23) rash Penicillins Allergy (Unknown, Verified 08/13/19 17:23) Home Medications: atb. gabapentin. metformin. depression pill. metoprolol Past Medical History - Social History Chew tobacco use (# tins/day): No Frequency of alcohol use: Occasional Drug Abuse: Methamphetamine - Past Medical History Cardiac Medical History: Denies: Hx Heart Attack, Hx Hypertension - pt states low BP Pulmonary Medical History: Reports: Hx Asthma, Hx Bronchitis Denies: Hx COPD, Hx Pneumonia Neurological Medical History: Reports: Hx Migraine. Denies: Hx Seizures Endocrine Medical History: Reports: Hx Diabetes Mellitus Type 2 Renal/ Medical History: Denies: Hx Peritoneal Dialysis Musculoskeltal Medical History: Denies Hx Arthritis - 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 Skin Medical History: Reports Hx Cellulitis Psychiatric Medical History: Reports: Hx Anxiety, Hx Bipolar Disorder, Hx Depression, Hx Post Traumatic Stress Disorder Past Surgical History: Reports: Hx Section - x2, Hx Oral Surgery - wisdom teeth - Immunizations Immunizations up to date: No Hx Diphtheria, Pertussis, Tetanus Vaccination: No Physical Exam - Vital signs Vitals: Temp Pulse Resp BP Pulse Ox 98.9 F 110 H 20 108/73 98 08/13/19 16:37 08/13/19 16:37 08/13/19 16:37 08/13/19 16:37 08/13/19 16:37 Course - Vital Signs Vital signs: Temp Pulse Resp BP Pulse Ox 98.9 F 110 H 20 108/73 98 08/13/19 17:24 08/13/19 16:37 08/13/19 16:37 08/13/19 16:37 08/13/19 16:37 Doctor's Discharge - Discharge Referrals: BENEDICTO WOLFF MD [Primary Care Provider] - Follow up as needed
[2019-08-13 17:55] LABS: ABSOLUTE EOSINOPHILS # (AUTO) 0.4 10^3/uL (0.0-0.6); ABSOLUTE MONOCYTES (AUTO) 0.4 10^3/uL (0.1-1.4); ABSOLUTE NEUT (AUTO) 3.5 10^3/uL (1.7-8.2); BASOPHILS % (AUTO) 0.3 % (0-2); EOSINOPHILS % (AUTO) 7.9 % (0-6); HEMATOCRIT 38.6 % (36.0-47.0); HEMOGLOBIN 13.2 g/dL (12.0-15.5); LYMPHOCYTES % (AUTO) 18.9 % (13-45); MEAN CORPUSCULAR HEMOGLOBIN 28.1 pg (27.0-33.4); MEAN CORPUSCULAR HGB CONC 34.3 g/dL (32.0-36.0); MEAN CORPUSCULAR VOLUME 82 fl (80-97); MONOCYTES % (AUTO) 7.4 % (3-13); PLATELET COUNT 439 10^3/uL (150-450); RED BLOOD COUNT 4.72 10^6/uL (3.72-5.28); RED CELL DISTRIBUTION WIDTH 16.5 % (11.5-14.0); SEGMENTED NEUTROPHILS % (AUTO) 65.5 % (42-78); TOTAL CELLS COUNTED % (AUTO) 100 %; WHITE BLOOD COUNT 5.4 10^3/uL (4.0-10.5)
[2019-08-13 18:16] LABS: ALBUMIN 4.2 g/dL (3.5-5.0); ALKALINE PHOSPHATASE 123 U/L (38-126); ANION GAP 11 (5-19); ASPARTATE AMINO TRANSFERASE 21 U/L (14-36); BILIRUBIN,DIRECT 0.1 mg/dL (0.0-0.4); BILIRUBIN,TOTAL 0.5 mg/dL (0.2-1.3); BLOOD UREA NITROGEN 7 mg/dL (7-20); CALCIUM 9.2 mg/dL (8.4-10.2); CARBON DIOXIDE 27 mmol/L (22-30); CHLORIDE 96 mmol/L (98-107); GLUCOSE 119 mg/dL (75-110); POTASSIUM 3.3 mmol/L (3.6-5.0); TOTAL PROTEIN 7.6 g/dL (6.3-8.2)
--- NOTE | 2019-08-13 20:24 | RADIOLOGY REPORT (SQ) ---
CT LOWER EXTREMITY WITH IV CONTRAST HISTORY: Abscess COMPARISON: None. TECHNIQUE: CT scan of the right lower extremity was performed with IV contrast. This exam was performed according to our departmental dose-optimization program, which includes automated exposure control, adjustment of the mA and/or kV according to patient size and/or use of iterative reconstruction technique. FINDINGS: There is focal soft tissue defect with mild inflammatory stranding along the anterior aspect of the right lower leg. There are a few pockets of subcutaneous air but no drainable fluid collection or abscess is seen. There is no cortical erosion or periosteal reaction to suggest acute osteomyelitis. No acute fracture or dislocation. No foreign body. The muscles and tendons are intact. IMPRESSION: Soft tissue defect with mild inflammation of the anterior lower leg, but without abscess or drainable fluid collection
[2019-08-13 21:02] LABS: APPEARANCE,URINE SLIGHTLY-CLOUDY; BILIRUBIN,URINE NEGATIVE (NEGATIVE); COLOR,URINE YELLOW; GLUCOSE, URINE NEGATIVE (NEGATIVE); KETONES,URINE NEGATIVE (NEGATIVE); LEUKOCYTE ESTERASE,URINE NEGATIVE (NEGATIVE); NITRITE,URINE NEGATIVE (NEGATIVE); PROTEIN,URINE NEGATIVE (NEGATIVE); URINE SPECIFIC GRAVITY 1.038; UROBILINOGEN,URINE NEGATIVE mg/dL (<2.0)
--- NOTE | 2019-08-13 23:48 | ER Document Report ---
ED Extremity Problem, Lower - General Chief Complaint: Leg Swelling Stated Complaint: SPIDER BITE FEVER VOMITTING Time Seen by Provider: 08/13/19 17:24 Mode of Arrival: Wheelchair Notes: 28-year-old female with past medical history of type 2 diabetes and multiple mental health issues presenting today with right lower extremity redness and swelling. States that she woke up and noticed a small what appeared to be an ant bite. Redness continued to spread. So she followed up with her primary care who stated that she was bit by a brown recluse. Was prescribed Bactrim 1 tablet by mouth twice daily. She does not believe that she was bit by a spider. Patient states that she has fevers, chills, nausea and vomiting. Her leg pain is become worse with spreading erythema. Patient notes that it has now developed into 2 open wounds and that the wound has continued to open and drain green/white discharge. She is on day 5 of 7 of Bactrim. Is able to bend her leg. She denies any additional symptoms. TRAVEL OUTSIDE OF THE [place] IN LAST 30 DAYS: No - Related Data Allergies/Adverse Reactions: amoxicillin Allergy (Mild, Verified 08/13/19 17:23) cephalexin [From Keflex] Allergy (Unknown, Verified 08/13/19 17:23) rash Penicillins Allergy (Unknown, Verified 08/13/19 17:23) Home Medications: atb. gabapentin. metformin. depression pill. metoprolol Past Medical History - Social History Smoking Status: Current Every Day Smoker Chew tobacco use (# tins/day): No Frequency of alcohol use: Occasional Drug Abuse: Methamphetamine Family History: Arthritis, CAD, COPD, CVA, DM, Hyperlipidemia, Hypertension, Thyroid Disfunction, Other - Depression, anxiety, and schizophrenia Patient has homicidal ideation: No - Past Medical History Cardiac Medical History: Denies: Hx Heart Attack, Hx Hypertension - pt states low BP Pulmonary Medical History: Reports: Hx Asthma, Hx Bronchitis Denies: Hx COPD, Hx Pneumonia Neurological Medical History: Reports: Hx Migraine. 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 Skin Medical History: Reports Hx Cellulitis Psychiatric Medical History: Reports: Hx Anxiety, Hx Bipolar Disorder, Hx Dep ression, Hx Post Traumatic Stress Disorder Past Surgical History: Reports: Hx Section - x2, Hx Oral Surgery - wisdom teeth - Immunizations Immunizations up to date: No Hx Diphtheria, Pertussis, Tetanus Vaccination: No Review of Systems - Review of Systems Constitutional: See HPI EENT: No symptoms reported Cardiovascular: No symptoms reported Respiratory: No symptoms reported Gastrointestinal: See HPI Genitourinary: No symptoms reported Skin: See HPI Hematologic/Lymphatic: No symptoms reported Neurological/Psychological: No symptoms reported Physical Exam - Vital signs Vitals: Temp Pulse Resp BP Pulse Ox 98.9 F 110 H 20 108/73 98 08/13/19 16:37 08/13/19 16:37 08/13/19 16:37 08/13/19 16:37 08/13/19 16:37 - Notes Notes: Adult General: GENERAL: Alert, interacts well. No acute distress HEAD: Normocephalic, atraumatic EYES: Extraocular movements intact. ENT: Airway patent. Nares patent. NECK: Full range of motion. Supple. Trachea midline. LUNGS: Clear to auscultation bilaterally, no wheezes, rales, or rhonchi. No respiratory distress. Nontender chest wall. HEART: Regular rate and rhythm. No murmurs, rubs or gallops. ABDOMEN: Soft, nontender. Nondistended. (-) [place] sign. Bowel sounds present in all 4 quadrants. GENITOURINARY: Deferred EXTREMITIES: Edema, erythema, warmth tenderness along anterior lower left leg with 2 open wounds that appear to be tunneling. Erythema approximately 4 inch by 6 inches. Moves all 4 extremities spontaneously. Associated 1 cm open wound with adjacent .5 cm wound on anterior leg. BACK: Moves all extremities with full range of motion. NEUROLOGICAL: Alert and oriented x3. Normal speech. Strength 5/ 5 in all extremities. PSYCH: Normal affect, normal mood. SKIN: See extremity. Course - Re-evaluation Re-evalutation: 08/14/19 01:01 Patient is afebrile, no elevated white count. Is tachycardic. Do not suspect that this is an insect bite. That this is MRSA. Suspect that she has failed outpatient antibiotic therapy as her symptoms are progressively getting worse and she has been on antibiotics for 5 days. Discussed case with Dr. Escobar. Agrees patient should receive parenteral antibiotic therapy. Called hospitalist Dr. Brown. Agrees to have patient be placed in observation. Discussed this with the patient. She is in agreement with the plan. All questions answered. - Vital Signs Vital signs: Temp Pulse Resp BP Pulse Ox 98.1 F 97 14 118/58 L 98 08/14/19 00:43 08/14/19 00:43 08/14/19 00:43 08/14/19 00:43 08/14/19 00:43 - Laboratory Result Diagrams: 08/13/19 17:40 08/13/19 17:40 Laboratory results interpreted by me: 08/13/19 08/13/19 08/13/19 17:40 17:40 20:43 RDW 16.5 H Eos % (Auto) 7.9 H Sodium 134.2 L Potassium 3.3 L Chloride 96 L Glucose 119 H Urine Blood SMALL H Discharge - Discharge Clinical Impression: MRSA cellulitis Condition: Stable Disposition: ADMITTED OBSERVATION Admitting Provider: Stephanie (Hospitalist)
[2019-08-14] MEDS ORDERED: MORPHINE SULFATE 10 MG/ML INJ IV ONE (00:21)
[2019-08-14] MEDS ORDERED: MAGNESIUM HYDROXIDE SUSP 30 ML UDCUP PO PRN ×2 (01:22→01:24)
[2019-08-14] MEDS ORDERED: HYDRALAZINE HCL INJ/PF 20 MG/1 ML SDV IV PRN (01:22)
[2019-08-14] MEDS ORDERED: NICOTINE 21 MG/24 HR PATCH.TD24 TD PRN (01:22)
[2019-08-14] MEDS ORDERED: GUAIFENESIN SYRP 200 MG/10 ML UDC PO PRN (01:22)
[2019-08-14] MEDS ORDERED: LORAZEPAM INJ 2 MG/1 ML VIAL IV PRN (01:22)
[2019-08-14] MEDS ORDERED: MAG HYDROX/AL HYDROX/SIMETH SUSP 30 ML UDCUP PO PRN (01:22)
[2019-08-14] MEDS ORDERED: MELATONIN 5 MG TABLET PO PRN (01:22)
[2019-08-14] MEDS ORDERED: PROMETHAZINE HCL INJ 25 MG/1 ML VIAL IV PRN ×2 (01:24→11:00)
[2019-08-14] MEDS: ACETAMINOPHEN 325 MG TABLET PO PRN ×2 (02:11→06:57)
[2019-08-14] MEDS: MORPHINE SULFATE 10 MG/ML INJ IV PRN ×2 (02:12→06:57)
--- NOTE | 2019-08-14 03:47 | PDOC H&P ---
History of Present Illness Admission Date/PCP: 08/14/19 00:29 BENEDICTO WOLFF Patient complains of: Right lower leg pain History of Present Illness: KYLE NIEVES is a 28 year old female who presented to the emergency room with a 10-day history of right lower extremity pain. She admits noticing a small area of redness and swelling on her right anterior tibial surface about 10 days ago which became increasingly red and swollen and spread into the surrounding tissues with resulting pain. Her symptoms have continued to worsen despite being treated 5 days ago by her primary care provider for a "brown recluse spider bite" with Bactrim DS 1 tablet twice daily. She does not recall a spider or insect bite but does admit to the accompanying symptoms of headache, nausea and vomiting. She also admits to the associated symptoms of fatigue, ague, malaise, subjective intermittent fever with chills and diaphoresis. Her constant aching pain is localized in her anterior right lower extremity and is moderate to severe in intensity. Her pain is worsened by weightbearing. She denies other associated or accompanying signs and symptoms. She denies prior similar episodes. She has not identified any additional aggravating or ameliorating factors for her right lower extremity pain. In the emergency room she was found to have a normal CBC with a well-controlled blood sugar and a CT scan which showed no evidence of abscess development or bony involvement. Despite her negative work-up per emergency room provider felt that she should be hospitalized for treatment due to unresponsiveness to outpatient therapy. Patient was subsequently admitted to observation status for further evaluation and reassessment of therapy. Past Medical History Cardiac Medical History: Reports: Hypertension Denies: Coronary Artery Disease, DVT, Myocardial Infarction, Pulmonary Embolism Pulmonary Medical History: Reports: Asthma, Bronchitis Denies: Chronic Obstructive Pulmonary Disease (COPD), Pneumonia EENT Medical History: Denies: Cataracts, Ears - Hearing aids Neurological Medical History: Reports: Migraine Denies: Seizures Endocrine Medical History: Reports: Obesity Denies: Diabetes Mellitus Type 1, Diabetes Mellitus Type 2, Hyperthyroidism, Hypothyroidism Renal/ Medical History: Denies: Chronic Kidney Disease, Nephrolithiasis Malignancy Medical History: Reports: None GI Medical History: Denies: Cirrhosis, Hepatitis, Peptic Ulcer Disease Musculoskeltal Medical History: Reports: Arthritis - 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 Denies: Gout Skin Medical History: Denies: Eczema, Psoriasis Psychiatric Medical History: Reports: Bipolar Disorder, Depression, Post Traumatic Stress Disorder, Substance Abuse, Tobacco Dependency Denies: Alcohol Dependency Traumatic Medical History: Reports: None Hematology: Reports: Anemia - iron deficiency Denies: Bleeding Tendencies Infectious Medical History: Reports: Methicillin-Resistant Staph Aureus Past Surgical History Past Surgical History: Reports: Section - x2, Other - Breast abscess Social History Information Source: Patient Lives with: Family Smoking Status: Current Every Day Smoker Electronic Cigarette use?: No Frequency of Alcohol Use: Occasional Hx Recreational Drug Use: Yes Drugs: Other - Methamphetamine Hx Prescription Drug Abuse: No - Advance Directive Resuscitation Status: Full Code Surrogate healthcare decision maker:: Alondra Bales Family History Family History: Arthritis, CAD, COPD, CVA, DM, Hyperlipidemia, Hypertension, Thyroid Disfunction, Other - Depression, anxiety, and schizophrenia Parental Family History Reviewed: Yes Children Family History Reviewed: No Sibling(s) Family History Reviewed.: Yes Medication/Allergy Home Medications: Gabapentin [Neurontin 300 mg Capsule] 600 mg PO BID 06/29/17 Metoprolol Tartrate [Lopressor 25 mg Tablet] 1 tab PO DAILY 02/02/18 Dextroamphetamine/Amphetamine [Adderall 10 mg Tablet] 2 tab PO DAILY 08/15/18 Clindamycin HCl 300 mg PO TID #30 capsule 11/02/18 Metformin HCl 500 mg PO DAILY 11/02/18 Sertraline HCl [Zoloft 50 mg Tablet] 1 tab PO DAILY 11/02/18 Sulfamethoxazole/Trimethoprim [Bactrim Ds Tablet] 1 tab PO BID 11/02/18 Azithromycin [Zithromax 250 mg Tablet] 250 mg PO ASDIR PRN #4 tablet 12/21/18 Fluticasone Propionate [Flonase Nasal [place] 50 Mcg/[place] 16 gm] 2 sprays NASL Q12 #1 inhaler 12/21/18 Prednisone [Deltasone 20 mg Tablet] 2 tab PO DAILY 5 Days #10 tablet 12/21/18 Doxycycline Hyclate [Vibramycin] 100 mg PO BID #20 capsule 04/14/19 Hydrocodone/Acetaminophen [[place] 5-325 mg Tablet] 1 tab PO Q4 PRN #15 tablet 04/14/19 Allergies/Adverse Reactions: amoxicillin Allergy (Mild, Verified 08/13/19 17:23) cephalexin [From Keflex] Allergy (Unknown, Verified 08/13/19 17:23) rash Penicillins Allergy (Unknown, Verified 08/13/19 17:23) Review of Systems Constitutional: PRESENT: as per HPI, chills, fatigue, fever(s), headache(s) Eyes: ABSENT: visual disturbances, other - Eye pain Ears: ABSENT: hearing changes, other - Ear pain Nose, Mouth, and Throat: PRESENT: as per HPI, headache(s). ABSENT: sore throat Cardiovascular: ABSENT: chest pain, palpitations Respiratory: ABSENT: cough, dyspnea Gastrointestinal: PRESENT: diarrhea, nausea, vomiting. ABSENT: abdominal pain, constipation Genitourinary: ABSENT: dysuria, hematuria Musculoskeletal: ABSENT: back pain, joint swelling, muscle weakness Integumentary: PRESENT: as per HPI, diaphoresis, erythema - Erythema and edema with local tenderness, wounds - "Brown recluse spider bite". ABSENT: pruritus, rash Neurological: ABSENT: confusion, convulsions, focal weakness, memory loss, syncope Psychiatric: ABSENT: anxiety, depression Endocrine: ABSENT: cold intolerance, heat intolerance, polydipsia, polyphagia, polyuria Hematologic/Lymphatic: ABSENT: easy bleeding, easy bruising Allergic/Immunologic: ABSENT: seasonal rhinorrhea Physical Exam Vital Signs: Temp Pulse Resp BP Pulse Ox 98.1 F 97 14 118/58 L 98 08/14/19 00:43 08/14/19 00:43 08/14/19 00:43 08/14/19 00:43 08/14/19 00:43 Intake & Output 08/12/19 08/13/19 08/14/19 23:59 23:59 23:59 Intake Total 1000 Balance 1000 Weight 92.7 kg General appearance: PRESENT: no acute distress, cooperative, morbidly obese Head exam: PRESENT: atraumatic, normocephalic Eye exam: PRESENT: conjunctiva pink. ABSENT: conjunctival injection, scleral icterus Ear exam: PRESENT: normal external ear exam. ABSENT: bleeding, drainage Mouth exam: PRESENT: dry mucosa. ABSENT: neck supple Neck exam: ABSENT: thyromegaly, tracheal deviation Respiratory exam: PRESENT: clear to auscultation jacqueline, symmetrical, unlabored Cardiovascular exam: PRESENT: RRR. ABSENT: clicks, gallop, rubs Pulses: PRESENT: normal radial pulses, normal dorsalis pedis pul Vascular exam: PRESENT: normal capillary refill. ABSENT: pallor GI/Abdominal exam: PRESENT: normal bowel sounds, soft Rectal exam: PRESENT: deferred Extremities exam: ABSENT: joint swelling, pedal edema Musculoskeletal exam: PRESENT: tenderness - Erythema, edema and local tenderness to palpation with small superficial ulcerations noted in the right anterior tibial region.. ABSENT: deformity, dislocation Neurological exam: PRESENT: alert, oriented to person, oriented to place, oriented to time, oriented to situation, CN II-XII grossly intact. ABSENT: motor sensory deficit Psychiatric exam: PRESENT: appropriate affect, normal mood Skin exam: PRESENT: dry, warm, other - Erythema, edema and local tenderness to palpation with small superficial ulcerations noted in the right anterior tibial region.. ABSENT: jaundice, rash, urticaria Results Laboratory Results: 08/13/19 17:40 08/13/19 17:40 08/13/19 08/13/19 08/13/19 17:40 17:40 17:40 WBC 5.4 RBC 4.72 Hgb 13.2 Hct 38.6 MCV 82 MCH 28.1 MCHC 34.3 RDW 16.5 H Plt Count 439 Seg Neutrophils % 65.5 Sodium 134.2 L Potassium 3.3 L Chloride 96 L Carbon Dioxide 27 Anion Gap 11 BUN 7 Creatinine 0.84 Est GFR ( Amer) > 60 Glucose 119 H Lactic Acid 1.3 Calcium 9.2 Total Bilirubin 0.5 AST 21 Alkaline Phosphatase 123 Total Protein 7.6 Albumin 4.2 Serum HCG, Qual Urine Color Urine Appearance Urine pH Ur Specific [place] Urine Protein Urine Glucose (UA) Urine Ketones Urine Blood Urine Nitrite Ur Leukocyte Esterase Urine WBC (Auto) Urine RBC (Auto) 08/13/19 08/13/19 17:40 20:43 WBC RBC Hgb Hct MCV MCH MCHC RDW Plt Count Seg Neutrophils % Sodium Potassium Chloride Carbon Dioxide Anion Gap BUN Creatinine Est GFR ( Amer) Glucose Lactic Acid Calcium Total Bilirubin AST Alkaline Phosphatase Total Protein Albumin Serum HCG, Qual NEGATIVE Urine Color YELLOW Urine Appearance SLIGHTLY-CLOUDY Urine pH 7.0 Ur Specific [place] 1.038 Urine Protein NEGATIVE Urine Glucose (UA) NEGATIVE Urine Ketones NEGATIVE Urine Blood SMALL H Urine Nitrite NEGATIVE Ur Leukocyte Esterase NEGATIVE Urine WBC (Auto) 3 Urine RBC (Auto) 4 Impressions: Lower Extremity CT 08/13/19 17:45 IMPRESSION: Soft tissue defect with mild inflammation of the anterior lower leg, but without abscess or drainable fluid collection Assessment and Plan - Diagnosis (1) Pain of right anterior lower extremity Is this a current diagnosis for this admission?: Yes (2) Tobacco use disorder, severe, dependence Is this a current diagnosis for this admission?: Yes (3) Morbid obesity Is this a current diagnosis for this admission?: Yes (4) Depression Qualifiers: Depression Type: unspecified Qualified Code(s): F32.9 - Major depressive disorder, single episode, unspecified Is this a current diagnosis for this admission?: Yes - Plan Summary Summary: The patient is admitted to the observation status on the medical floor where she will receive routine supportive and symptomatic cares. Oral antibiotic therapy with Zyvox will be initiated and IV vancomycin started in the emergency room will be discontinued. A wound culture has been ordered stat, as it was omitted by the ER provider. Blood cultures were obtained in the ER and are pending. Patient will receive morphine sulfate 2 to 4 mg IV every 2 hours as needed for pain. She will receive Ativan 1 mg IV every 4 hours as needed for anxiety or restlessness. She will be observed for an appropriate interval to assure her understanding of wound care and treatment and will be discharged by her daytime hospitalist to further follow-up care with Dr. Wolff. She will be placed on a cardiac and diabetic restricted diet, though the likelihood that this patient has diabetes is relatively low, the dietary restrictions should not be of signif icance. She will be continued on her usual home medications, as deemed appropriate, as soon as her medication list has been verified and reconciled. CBCs, metabolic profiles, magnesium levels and additional laboratory and/or radiographic evaluations will be obtained as appropriate. Smoking cessation has been advised and counseled briefly at the bedside. A nicotine replacement patch is available for the patient's use, if desired. - Time Time Spent with patient: 15-24 minutes Smoking Cessation Education: 3 to 10 minutes Medications reviewed and adjusted accordingly: Yes Anticipated discharge: Home - Inpatient Certification Based on my medical assessment, after consideration of the patient's comorbidities, presenting symptoms, or acuity I expect that the services needed warrant INPATIENT care.: No I certify that my determination is in accordance with my understanding of Medicare's requirements for reasonable and necessary INPATIENT services [42 CFR 412.3e].: No
[2019-08-14] MEDS ORDERED: LINEZOLID 600 MG TABLET ONE (05:37)
[2019-08-14] MEDS: HEPARIN SOD (PORCINE) 5,000 UNIT/ML 1 ML VIAL SUBCUT SCH ×4 (06:50→22:14)
[2019-08-14] MEDS: LINEZOLID 600 MG TABLET PO SCH ×2 (06:58→18:26)
[2019-08-14] MEDS ORDERED: METFORMIN HCL 500 MG TABLET PO SCH (08:00)
[2019-08-14] MEDS: POTASSIUM CHLORIDE 10 MEQ TABLET.ER PO SCH ×4 (08:06→18:09)
[2019-08-14] MEDS: INSULIN REG, HUMAN 100 UNIT/ML 3 ML VIAL (PYX) SUBCUT SCH ×5 (08:06→22:02)
[2019-08-14 08:08] LABS: HEMATOCRIT 36.8 % (36.0-47.0); HEMOGLOBIN 12.5 g/dL (12.0-15.5); MEAN CORPUSCULAR HEMOGLOBIN 27.6 pg (27.0-33.4); MEAN CORPUSCULAR VOLUME 81 fl (80-97); PLATELET COUNT 387 10^3/uL (150-450); RED BLOOD COUNT 4.53 10^6/uL (3.72-5.28); RED CELL DISTRIBUTION WIDTH 16.6 % (11.5-14.0)
[2019-08-14 08:33] LABS: ANION GAP 7 (5-19); BLOOD UREA NITROGEN 6 mg/dL (7-20); CALCIUM 8.6 mg/dL (8.4-10.2); CARBON DIOXIDE 26 mmol/L (22-30); CHLORIDE 99 mmol/L (98-107); GLUCOSE 114 mg/dL (75-110)
[2019-08-14 08:45] LABS: POTASSIUM 2.9 mmol/L (3.6-5.0)
[2019-08-14] MEDS: DOCUSATE SODIUM 100 MG CAPSULE PO SCH ×2 (09:22→17:46)
[2019-08-14] MEDS: FAMOTIDINE 20 MG TABLET PO SCH ×2 (09:22→22:14)
[2019-08-14] MEDS ORDERED: GABAPENTIN 300 MG CAPSULE PO SCH (10:00)
[2019-08-14] MEDS: HYDROCODONE/ACETAMINOPHEN 5-325 MG TABLET PO PRN ×2 (12:42→18:42)
[2019-08-14] MEDS ORDERED: POTASSIUM CHLORIDE 20 MEQ PACKET PO ONE (18:00)
[2019-08-14] MEDS: POTASSI CL 20 MEQ/50 ML RIDER 20 MEQ/50 ML RTUPB IV SCH ×2 (18:27→22:15)
--- NOTE | 2019-08-14 18:36 | Progress Note ---
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 Overnight events, vital signs, H&P, lab and imaging results, and orders reviewed. Agree with the plan of care as established by previous provider. Additionally, will de-escalate the narcotic medications from sliding scale morphine to p.o. [place]. Follow-up CBC and chemistry were obtained; revealed potassium 2.9. She will be provided oral and IV replacement with follow-up chemistry. Magnesium is pending. Patient's home medications have been reconciled and resumed.
[2019-08-14] MEDS: GABAPENTIN 300 MG CAPSULE PO SCH (22:14)
[2019-08-15 06:06] LABS: HEMATOCRIT 35.4 % (36.0-47.0); HEMOGLOBIN 11.6 g/dL (12.0-15.5); MEAN CORPUSCULAR HEMOGLOBIN 27.3 pg (27.0-33.4); MEAN CORPUSCULAR HGB CONC 32.8 g/dL (32.0-36.0); MEAN CORPUSCULAR VOLUME 83 fl (80-97); PLATELET COUNT 329 10^3/uL (150-450); RED BLOOD COUNT 4.24 10^6/uL (3.72-5.28); RED CELL DISTRIBUTION WIDTH 16.3 % (11.5-14.0); WHITE BLOOD COUNT 3.2 10^3/uL (4.0-10.5)
[2019-08-15] MEDS: HEPARIN SOD (PORCINE) 5,000 UNIT/ML 1 ML VIAL SUBCUT SCH (06:30)
[2019-08-15 06:35] LABS: BLOOD UREA NITROGEN 5 mg/dL (7-20); CALCIUM 8.8 mg/dL (8.4-10.2); GLUCOSE 86 mg/dL (75-110); POTASSIUM 4.3 mmol/L (3.6-5.0)
[2019-08-15 06:40] LABS: CARBON DIOXIDE 28 mmol/L (22-30); CHLORIDE 105 mmol/L (98-107)
[2019-08-15 06:47] LABS: ANION GAP 3 (5-19)
[2019-08-15] MEDS: GABAPENTIN 300 MG CAPSULE PO SCH (06:50)
[2019-08-15] MEDS: HYDROCODONE/ACETAMINOPHEN 5-325 MG TABLET PO PRN ×2 (06:50→12:47)
[2019-08-15] MEDS: LINEZOLID 600 MG TABLET PO SCH (06:52)
[2019-08-15] MEDS: INSULIN REG, HUMAN 100 UNIT/ML 3 ML VIAL (PYX) SUBCUT SCH ×2 (08:00→11:00)
[2019-08-15] MEDS ORDERED: METOPROLOL SUCCINATE 25 MG TAB.SR.24H PO SCH (10:00)
[2019-08-15] MEDS: DOCUSATE SODIUM 100 MG CAPSULE PO SCH (10:48)
[2019-08-15] MEDS: FAMOTIDINE 20 MG TABLET PO SCH (10:49)
[2019-08-15 12:53] VITALS: BP 133/71
--- NOTE | 2019-08-15 13:20 | PDOC DISCHARGE SUMMARY ---
Impression - Admit/DC Date/PCP Admission Date/Primary Care Provider: 08/14/19 00:29 BENEDICTO WOLFF Discharge Date: 08/15/19 - Discharge Diagnosis (1) Abscess of knee, right Is this a current diagnosis for this admission?: Yes (2) Pain of right anterior lower extremity Is this a current diagnosis for this admission?: Yes (3) Tobacco use disorder, severe, dependence Is this a current diagnosis for this admission?: Yes (4) Depression Is this a current diagnosis for this admission?: Yes - Additional Information Resuscitation Status: Full Code Discharge Diet: Regular Discharge Activity: Activity As Tolerated Referrals: BENEDICTO WOLFF MD [Primary Care Provider] - Follow up as needed Prescriptions: Nicotine [Nicoderm 21 mg/24 Hr Transderm Patch] 1 each TD DAILYP PRN #30 patch.td24 PRN Reason: Hydrocodone/Acetaminophen [[place] 5-325 mg Tablet] 1 tab PO Q6HP PRN #12 tablet PRN Reason: Linezolid [Zyvox 600 mg Tablet] 600 mg PO Q12A #20 tablet Home Medications: Gabapentin [Neurontin 300 mg Capsule] 600 mg PO Q8 06/29/17 Metoprolol Succinate [Toprol Xl 25 mg Tab.sr] 25 mg PO DAILY 08/14/19 Acetaminophen [Tylenol 325 mg Tablet] 650 mg PO Q4HP PRN tablet 08/15/19 Hydrocodone/Acetaminophen [[place] 5-325 mg Tablet] 1 tab PO Q6HP PRN #12 tablet 08/15/19 Linezolid [Zyvox 600 mg Tablet] 600 mg PO Q12A #20 tablet 08/15/19 Nicotine [Nicoderm 21 mg/24 Hr Transderm Patch] 1 each TD DAILYP PRN #30 patch.td24 08/15/19 Sertraline HCl [Zoloft 50 mg Tablet] 50 mg PO DAILY #0 08/15/19 History of Present Illiness History of Present Illness: Per H&P by Dr. Brown: KYLE NIEVES is a 28 year old female who presented to the emergency room with a 10-day history of right lower extremity pain. She admits noticing a small area of redness and swelling on her right anterior tibial surface about 10 days ago which became increasingly red and swollen and spread into the surrounding tissues with resulting pain. Her symptoms have continued to worsen despite being treated 5 days ago by her primary care provider for a "brown recluse spider bite" with Bactrim DS 1 tablet twice daily. She does not recall a spider or insect bite but does admit to the accompanying symptoms of headache, nausea and vomiting. She also admits to the associated symptoms of fatigue, ague, malaise, subjective intermittent fever with chills and diaphoresis. Her constant aching pain is localized in her anterior right lower extremity and is moderate to severe in intensity. Her pain is worsened by weightbearing. She denies other associated or accompanying signs and symptoms. She denies prior similar episodes. She has not identified any additional aggravating or ameliorating factors for her right lower extremity pain. In the emergency room she was found to have a normal CBC with a well-controlled blood sugar and a CT scan which showed no evidence of abscess development or bony involvement. Despite her negative work-up per emergency room provider felt that she should be hospitalized for treatment due to unresponsiveness to outpatient therapy. Patient was subsequently admitted to observation status for further evaluation and reassessment of therapy. Hospital Course Hospital Course: The patient was admitted to the medical floor. She was placed on oral Zyvox therapy; did receive 1 dose of vancomycin while in the emergency department. Follow-up laboratory testing did reveal hypokalemia; replaced by oral and IV routes. During her observation period, her pain, edema, and erythema improved. Her wound was thoroughly irrigated prior to discharge today. She was found to have a relatively shallow ulceration (1.5 cm round by 0.5 cm deep) with granulation tissue to the base. Her purulent fluid was less tenacious today; more serous discharge as compared to yesterday. Patient was thoroughly educated on wound care. She is agreeable to discharge to home with close follow-up by her PCP. She is also instructed to notify me when she reaches her pharmacy should she find that her co-pay is exorbitant. Physical Exam Vital Signs: Temp Pulse Resp BP Pulse Ox 98.2 F 83 17 133/71 H 99 08/15/19 12:52 08/15/19 12:52 08/15/19 12:52 08/15/19 12:52 08/15/19 12:52 Intake & Output 08/14/19 08/15/19 08/16/19 06:59 06:59 06:59 Intake Total 1200 740 Balance 1200 740 Weight 90.6 kg 93.1 kg General appearance: PRESENT: no acute distress, cooperative, morbidly obese, well-developed, well-nourished Head exam: PRESENT: atraumatic, normocephalic Eye exam: PRESENT: conjunctiva pink, EOMI, PERRLA. ABSENT: scleral icterus Mouth exam: PRESENT: moist, tongue midline Respiratory exam: PRESENT: clear to auscultation jacqueline, symmetrical, unlabored. ABSENT: rales, rhonchi, wheezes Cardiovascular exam: PRESENT: RRR. ABSENT: diastolic murmur, rubs, systolic murmur Pulses: PRESENT: normal dorsalis pedis pul Vascular exam: PRESENT: normal capillary refill Extremities exam: PRESENT: full ROM. ABSENT: calf tenderness, clubbing, pedal edema Neurological exam: PRESENT: alert, awake, oriented to person, oriented to place, oriented to time, oriented to situation, CN II-XII grossly intact. ABSENT: motor sensory deficit Psychiatric exam: PRESENT: appropriate affect, normal mood. ABSENT: homicidal ideation, suicidal ideation Skin exam: PRESENT: dry, warm, other - 1.5 cm round by 0.5 cm deep ulceration (from abscess) to Rt knee at the tibal plateau. Slight amount of purulent fluid.. ABSENT: cyanosis, intact, rash Results Laboratory Results: WBC 3.2 10^3/uL (4.0-10.5) L 08/15/19 05:26 RBC 4.24 10^6/uL (3.72-5.28) 08/15/19 05:26 Hgb 11.6 g/dL (12.0-15.5) L 08/15/19 05:26 Hct 35.4 % (36.0-47.0) L 08/15/19 05:26 MCV 83 fl (80-97) 08/15/19 05:26 MCH 27.3 pg (27.0-33.4) 08/15/19 05:26 MCHC 32.8 g/dL (32.0-36.0) 08/15/19 05:26 RDW 16.3 % (11.5-14.0) H 08/15/19 05:26 Plt Count 329 10^3/uL (150-450) 08/15/19 05:26 Lymph % (Auto) 18.9 % (13-45) 08/13/19 17:40 [place] % (Auto) 7.4 % (3-13) 08/13/19 17:40 Eos % (Auto) 7.9 % (0-6) H 08/13/19 17:40 Baso % (Auto) 0.3 % (0-2) 08/13/19 17:40 Absolute Neuts (auto) 3.5 10^3/uL (1.7-8.2) 08/13/19 17:40 Absolute Lymphs (auto) 1.0 10^3/uL (0.5-4.7) 08/13/19 17:40 Absolute Monos (auto) 0.4 10^3/uL (0.1-1.4) 08/13/19 17:40 Absolute Eos (auto) 0.4 10^3/uL (0.0-0.6) 08/13/19 17:40 Absolute Basos (auto) 0.0 10^3/uL (0.0-0.2) 08/13/19 17:40 Seg Neutrophils % 65.5 % (42-78) 08/13/19 17:40 Sodium 135.8 mmol/L (137-145) L 08/15/19 05:26 Potassium 4.3 mmol/L (3.6-5.0) 08/15/19 05:26 Chloride 105 mmol/L (98-107) 08/15/19 05:26 Carbon Dioxide 28 mmol/L (22-30) 08/15/19 05:26 Anion Gap 3 (5-19) L 08/15/19 05:26 BUN 5 mg/dL (7-20) L 08/15/19 05:26 Creatinine 0.70 mg/dL (0.52-1.25) 08/15/19 05:26 Est GFR ( Amer) > 60 (>60) 08/15/19 05:26 Est GFR (MDRD) Non-Af > 60 (>60) 08/15/19 05:26 Glucose 86 mg/dL (75-110) 08/15/19 05:26 POC Glucose 104 mg/dL (70-110) 08/15/19 11:32 Hemoglobin A1c % 4.9 % (4.7-6.0) 08/14/19 02:03 Lactic Acid 1.3 mmol/L (0.7-2.1) 08/13/19 17:40 Calcium 8.8 mg/dL (8.4-10.2) 08/15/19 05:26 Magnesium 2.1 mg/dL (1.6-2.3) 08/15/19 05:26 Total Bilirubin 0.5 mg/dL (0.2-1.3) 08/13/19 17:40 Direct Bilirubin 0.1 mg/dL (0.0-0.4) 08/13/19 17:40 Neonat Total Bilirubin Not Reportable 08/13/19 17:40 Neonat Direct Bilirubin Not Reportable 08/13/19 17:40 Neonat Indirect Bili Not Reportable 08/13/19 17:40 AST 21 U/L (14-36) 08/13/19 17:40 ALT 13 U/L (<35) 08/13/19 17:40 Alkaline Phosphatase 123 U/L (38-126) 08/13/19 17:40 Total Protein 7.6 g/dL (6.3-8.2) 08/13/19 17:40 Albumin 4.2 g/dL (3.5-5.0) 08/13/19 17:40 Serum HCG, Qual NEGATIVE (NEGATIVE) 08/13/19 17:40 Urine Color YELLOW 08/13/19 20:43 Urine Appearance SLIGHTLY-CLOUDY 08/13/19 20:43 Urine pH 7.0 (5.0-9.0) 08/13/19 20:43 Ur Specific [place] 1.038 08/13/19 20:43 Urine Protein NEGATIVE mg/dL (NEGATIVE) 08/13/19 20:43 Urine Glucose (UA) NEGATIVE mg/dL (NEGATIVE) 08/13/19 20:43 Urine Ketones NEGATIVE mg/dL (NEGATIVE) 08/13/19 20:43 Urine Blood SMALL (NEGATIVE) H 08/13/19 20:43 Urine Nitrite NEGATIVE (NEGATIVE) 08/13/19 20:43 Urine Bilirubin NEGATIVE (NEGATIVE) 08/13/19 20:43 Urine Urobilinogen NEGATIVE mg/dL (<2.0) 08/13/19 20:43 Ur Leukocyte Esterase NEGATIVE (NEGATIVE) 08/13/19 20:43 Urine WBC (Auto) 3 /HPF 08/13/19 20:43 Urine RBC (Auto) 4 /HPF 08/13/19 20:43 Urine Bacteria (Auto) TRACE /HPF 08/13/19 20:43 Squamous Epi Cells Auto 15 /HPF 08/13/19 20:43 Urine Mucus (Auto) RARE /LPF 08/13/19 20:43 Urine Ascorbic Acid NEGATIVE (NEGATIVE) 08/13/19 20:43 Impressions: Lower Extremity CT 08/13/19 17:45 IMPRESSION: Soft tissue defect with mild inflammation of the anterior lower leg, but without abscess or drainable fluid collection Plan Plan of Treatment: Patient is discharged home in stable condition. She is advised to follow-up with her primary care doctor within 1 week. She is instructed on wound care. She is advised to have her pharmacy return alcohol to me should she find that her antibiotic is not covered by her plan her co-pay is exorbitant. She is instructed to stop smoking. She is encouraged to return the emergency department as needed for concerning symptoms. Time Spent: Greater than 30 Minutes Stroke Is this a Stroke Patient?: No Acute Heart Failure - Is this a Heart Failure Patient?: No
== END 2019-08-15 13:35 | disposition home or self-care (01) ==
LOC: ER 16:28 → EH 08-14 00:29 → 4S 08-14 01:15
PROVIDERS: ADMIT Emergency Medicine; ATTEND Registered Nurse
DX: L02.415 Cutaneous abscess of right lower limb (principal); F17.210 Nicotine dependence, cigarettes, uncomplicated; M79.661 Pain in right lower leg; F32.9 Major depressive disorder, single episode, unspecified; E87.6 Hypokalemia; E66.01 Morbid (severe) obesity due to excess calories; R51 Headache; R11.2 Nausea with vomiting, unspecified; R53.83 Other fatigue; R53.81 Other malaise; R50.9 Fever, unspecified; R61 Generalized hyperhidrosis; R19.7 Diarrhea, unspecified; L97.819 Non-pressure chronic ulcer of other part of right lower leg with unspecified severity; E11.9 Type 2 diabetes mellitus without complications; R00.0 Tachycardia, unspecified; I10 Essential (primary) hypertension; F15.10 Other stimulant abuse, uncomplicated; Z86.14 Personal history of Methicillin resistant Staphylococcus aureus infection; Z82.61 Family history of arthritis; Z79.84 Long term (current) use of oral hypoglycemic drugs
CPT/HCPCS: 96376; 99284; 96361; 96374; 96375; 36415 ×3; 87040; 87070; 87205; 82962 ×2; 83605; 83735; 84703; 85025; 85027 ×2; 87077; 80048 ×2; 80053; 81001; 87186; 83036; 73701; 99406; J3490 ×12; J1644 ×2; J2270 ×2; J2405; J3480; J7120; J3370

== ENCOUNTER 2019-11-07 15:01 | Emergency (ER) | payer MEDICAID ==
[2019-11-07] MEDS ORDERED: ACETAMINOPHEN 325 MG TABLET PO ONE (15:35)
--- NOTE | 2019-11-07 15:39 | ER Document Report ---
ED Medical Screen (RME) - General Chief Complaint: Headache Stated Complaint: HEAD PAIN Time Seen by Provider: 11/07/19 15:29 Primary Care Provider: BENEDICTO WOLFF MD [Primary Care Provider] - Follow up as needed Notes: Patient is a 28-year-old female who presents emergency department with a chief complaint of a headache. Patient states that her headache started this morning. States that she also has bilateral facial pain. She took Tylenol yesterday and stated, "it did not work. Denies any sinus pressure. Denies any fever. Patient reported to the nurse that she does meth amphetamine and heroin. Exam: Tenderness upon palpation patient to face. I have greeted and performed a rapid initial assessment of this patient. A comprehensive ED assessment and evaluation of the patient, analysis of test results and completion of medical decision making process will be conducted by an additional ED providers. TRAVEL OUTSIDE OF THE [place] IN LAST 30 DAYS: No - Related Data Allergies/Adverse Reactions: amoxicillin Allergy (Mild, Verified 08/13/19 17:23) cephalexin [From Keflex] Allergy (Unknown, Verified 08/13/19 17:23) rash Penicillins Allergy (Unknown, Verified 08/13/19 17:23) Past Medical History - Social History Chew tobacco use (# tins/day): No Frequency of alcohol use: Rare Drug Abuse: Heroin, Methamphetamine - Past Medical History Cardiac Medical History: Reports: Hx Hypertension Denies: Hx Coronary Artery Disease, Hx DVT, Hx Heart Attack, Hx Pulmonary Embolism Pulmonary Medical History: Reports: Hx Asthma, Hx Bronchitis Denies: Hx COPD, Hx Pneumonia Neurological Medical History: Reports: Hx Migraine. Denies: Hx Seizures Endocrine Medical History: Denies: Hx Diabetes Mellitus Type 1, Hx Diabetes Mellitus Type 2, Hx Hyperthyroidism, Hx Hypothyroidism Renal/ Medical History: Denies: Hx Peritoneal Dialysis GI Medical History: Denies: Hx Cirrhosis, Hx Hepatitis Musculoskeltal Medical History: Reports Hx Arthritis - 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, Denies Hx Gout Skin Medical History: Reports Hx Cellulitis, Denies Hx Eczema, Denies Hx Psoriasis Psychiatric Medical History: Reports: Hx Anxiety, Hx Bipolar Disorder, Hx Depression, Hx Post Traumatic Stress Disorder Infectious Medical History: Reports: Hx MRSA. Denies: Hx Hepatitis Past Surgical History: Reports: Hx Section - x2, Hx Oral Surgery - wisdom teeth, Other - Breast abscess - Immunizations Immunizations up to date: No Hx Diphtheria, Pertussis, Tetanus Vaccination: No Doctor's Discharge - Discharge Referrals: BENEDICTO WOLFF MD [Primary Care Provider] - Follow up as needed
[2019-11-07 16:26] LABS: ABSOLUTE BASOPHILS # (AUTO) 0.1 10^3/uL (0.0-0.2); ABSOLUTE EOSINOPHILS # (AUTO) 0.3 10^3/uL (0.0-0.6); HEMOGLOBIN 12.2 g/dL (12.0-15.5); TOTAL CELLS COUNTED % (AUTO) 100 %
[2019-11-07 16:32] LABS: ABSOLUTE LYMPHOCYTES (AUTO) 2.9 10^3/uL (0.5-4.7); ABSOLUTE MONOCYTES (AUTO) 0.4 10^3/uL (0.1-1.4); ABSOLUTE NEUT (AUTO) 2.5 10^3/uL (1.7-8.2); BASOPHILS % (AUTO) 1.1 % (0-2); EOSINOPHILS % (AUTO) 4.6 % (0-6); HEMATOCRIT 36.6 % (36.0-47.0); LYMPHOCYTES % (AUTO) 46.6 % (13-45); MEAN CORPUSCULAR HEMOGLOBIN 26.5 pg (27.0-33.4); MEAN CORPUSCULAR HGB CONC 33.4 g/dL (32.0-36.0); MEAN CORPUSCULAR VOLUME 79 fl (80-97); MONOCYTES % (AUTO) 6.7 % (3-13); PLATELET COUNT 297 10^3/uL (150-450); RED BLOOD COUNT 4.61 10^6/uL (3.72-5.28); RED CELL DISTRIBUTION WIDTH 16.6 % (11.5-14.0); WHITE BLOOD COUNT 6.1 10^3/uL (4.0-10.5)
[2019-11-07 16:40] LABS: APPEARANCE,URINE CLOUDY; BILIRUBIN,URINE NEGATIVE (NEGATIVE); CALCIUM OXALATE CRYSTALS,URINE RARE /HPF; GLUCOSE, URINE NEGATIVE (NEGATIVE); KETONES,URINE NEGATIVE (NEGATIVE); LEUKOCYTE ESTERASE,URINE TRACE (NEGATIVE); NITRITE,URINE NEGATIVE (NEGATIVE); PROTEIN,URINE 100 mg/dL (NEGATIVE); URINE SPECIFIC GRAVITY 1.029
[2019-11-07 16:42] LABS: COLOR,URINE YELLOW
[2019-11-07 16:49] LABS: ALBUMIN 3.8 g/dL (3.5-5.0); ALKALINE PHOSPHATASE 69 U/L (38-126); ANION GAP 5 (5-19); ASPARTATE AMINO TRANSFERASE 15 U/L (14-36); BILIRUBIN,DIRECT 0.2 mg/dL (0.0-0.4); BILIRUBIN,TOTAL 0.4 mg/dL (0.2-1.3); BLOOD UREA NITROGEN 4 mg/dL (7-20); CALCIUM 8.7 mg/dL (8.4-10.2); CARBON DIOXIDE 30 mmol/L (22-30); CHLORIDE 104 mmol/L (98-107); GLUCOSE 91 mg/dL (75-110); POTASSIUM 3.4 mmol/L (3.6-5.0); TOTAL PROTEIN 6.6 g/dL (6.3-8.2)
[2019-11-07 17:04] LABS: URINE BARBITURATES SCREEN NEGATIVE; URINE BENZODIAZEPINES SCREEN NEGATIVE; URINE COCAINE SCREEN NEGATIVE; URINE METHADONE SCREEN NEGATIVE; URINE PHENCYCLIDINE SCREEN NEGATIVE
[2019-11-07 17:05] LABS: URINE MARIJUANA (THC) SCREEN UNCONFIRMED POSITIVE
[2019-11-07] MEDS ORDERED: ACETAMINOPHEN 325 MG TABLET ONE (20:16)
[2019-11-07] MEDS ORDERED: DIPHENHYDRAMINE HCL 50 MG/ML VIAL IV ONE (20:39)
[2019-11-07] MEDS ORDERED: METOCLOPRAMIDE HCL INJ/PF 10 MG/2 ML SDV IV ONE (20:39)
[2019-11-07] MEDS ORDERED: RINGERS SOLUTION,LACTATED 1,000 ML IV ONE (20:39)
--- NOTE | 2019-11-07 21:13 | RADIOLOGY REPORT (SQ) ---
CT HEAD WITHOUT IV CONTRAST HISTORY: Headache. COMPARISON: 11/22/2016 TECHNIQUE: CT scan of the brain was performed without IV contrast. This exam was performed according to our departmental dose-optimization program, which includes automated exposure control, adjustment of the mA and/or kV according to patient size and/or use of iterative reconstruction technique. FINDINGS: The ventricles, cisterns, and sulci are age-appropriate. No evidence of acute infarction, intracranial hemorrhage, extra-axial fluid collection, or midline shift. There is opacification of the left maxillary sinus and bilateral ethmoid air cells. No depressed skull fracture. IMPRESSION: 1. No acute intracranial findings. 2. Sinus mucosal inflammatory disease.
--- NOTE | 2019-11-07 21:50 | ER Document Report ---
ED Headache - General Chief Complaint: Headache Stated Complaint: HEAD PAIN Time Seen by Provider: 11/07/19 15:29 Primary Care Provider: BENEDICTO WOLFF MD [Primary Care Provider] - Follow up as needed Mode of Arrival: Ambulatory Information source: Patient Notes: 28-year-old female past medical history significant for SVT, diabetes, hypertension, migraines presents to the emergency room complaining of a frontal headache which started yesterday. Describes it as pressure. No frequent headaches. No medications for symptoms. Denies any recent head trauma or head injury. States is slightly different than her previous migraines and that this is more pressure behind her eyes. Does complain of nausea with photophobia. Denies worst headache of her life. Denies any sudden thunderclap. Does admit to the use of heroin and methamphetamines. TRAVEL OUTSIDE OF THE [place] IN LAST 30 DAYS: No - Related Data Allergies/Adverse Reactions: amoxicillin Allergy (Mild, Verified 11/07/19 20:26) cephalexin [From Keflex] Allergy (Unknown, Verified 11/07/19 20:26) rash Penicillins Allergy (Unknown, Verified 11/07/19 20:26) Past Medical History - General Information source: Patient - Social History Smoking Status: Current Every Day Smoker Chew tobacco use (# tins/day): No Frequency of alcohol use: Rare Drug Abuse: Heroin, Methamphetamine Family History: Arthritis, CAD, COPD, CVA, DM, Hyperlipidemia, Hypertension, Thyroid Disfunction, Other - Depression, anxiety, and schizophrenia - Past Medical History Cardiac Medical History: Reports: Hx Hypertension Denies: Hx Coronary Artery Disease, Hx DVT, Hx Heart Attack, Hx Pulmonary Embolism Pulmonary Medical History: Reports: Hx Asthma, Hx Bronchitis Denies: Hx COPD, Hx Pneumonia Neurological Medical History: Reports: Hx Migraine. Denies: Hx Seizures Endocrine Medical History: Denies: Hx Diabetes Mellitus Type 1, Hx Diabetes Mellitus Type 2, Hx Hyperthyroidism, Hx Hypothyroidism Renal/ Medical History: Denies: Hx Peritoneal Dialysis GI Medical History: Denies: Hx Cirrhosis, Hx Hepatitis Musculoskeletal Medical History: Reports Hx Arthritis - 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, Denies Hx Gout Skin Medical History: Reports Hx Cellulitis, Denies Hx Eczema, Denies Hx Psoriasis Psychiatric Medical History: Reports: Hx Anxiety, Hx Bipolar Disorder, Hx Depression, Hx Post Traumatic Stress Disorder Infectious Medical History: Reports: Hx MRSA. Denies: Hx Hepatitis Past Surgical History: Reports: Hx Section - x2, Hx Oral Surgery - wisd om teeth, Other - Breast abscess - Immunizations Immunizations up to date: No Hx Diphtheria, Pertussis, Tetanus Vaccination: No Review of Systems - Review of Systems Constitutional: No symptoms reported EENT: Sinus pressure Cardiovascular: No symptoms reported Respiratory: No symptoms reported Gastrointestinal: No symptoms reported Musculoskeletal: No symptoms reported Neurological/Psychological: Headaches -: Yes All other systems reviewed and negative Physical Exam - Vital signs Vitals: Temp Pulse BP Pulse Ox 97.9 F 98 126/74 H 98 11/07/19 15:37 11/07/19 15:37 11/07/19 15:37 11/07/19 15:37 - General General appearance: Appears well, Alert In distress: Mild - HEENT Head: Normocephalic, Atraumatic Eyes: Normal Cornea: Normal Extraocular movements intact: Yes Pupils: PERRL Ears: Normal External canal: Normal Tympanic membrane: Normal Sinus: Normal Nasal: Normal Mucous membranes: Normal Pharynx: Normal Notes: Positive for bilateral photophobia - Respiratory Respiratory status: No respiratory distress Chest status: Nontender Breath sounds: Normal Chest palpation: Normal - Cardiovascular Rhythm: Regular Heart sounds: Normal auscultation Murmur: No - Neurological Neuro grossly intact: Yes Cognition: Normal Orientation: AAOx4 Jt Coma Scale Eye Opening: Spontaneous Jt Coma Scale Verbal: Oriented [place] Coma Scale Motor: Obeys Commands Jt Coma Scale Total: 15 Speech: Normal Motor strength normal: LUE, RUE, LLE, RLE Sensory: Normal - Skin Skin Temperature: Warm Skin Moisture: Dry Skin Color: Normal Course - Re-evaluation Re-evalutation: 11/07/19 21:48 Patient is resting comfortably states her headache is pretty well resolved. She is neurovascular intact. All test results were reviewed with the patient. Counseled to use nasal spray as prescribed. Outpatient follow-up with primary care physician if not improving in 2 to 3 days. Counseled on substance abuse. Patient was given strict return to the emergency room guidelines. Return for any new or worsening symptoms. All questions were answered. Patient verbalized understanding and agrees with plan of care. 11/07/19 22:26 - Vital Signs Vital signs: Temp Pulse Resp BP Pulse Ox 98 F 89 15 96/70 L 100 11/07/19 21:59 11/07/19 21:59 11/07/19 21:59 11/07/19 21:59 11/07/19 21:59 - Laboratory Result Diagrams: 11/07/19 16:03 11/07/19 16:03 Laboratory results interpreted by me: 11/07/19 11/07/19 11/07/19 16:03 16:03 16:03 MCV 79 L MCH 26.5 L RDW 16.6 H Lymph % (Auto) 46.6 H Seg Neutrophils % 41.0 L Potassium 3.4 L BUN 4 L Urine Protein 100 H Urine Blood SMALL H Urine Urobilinogen 4.0 H Ur Leukocyte Esterase TRACE H - Diagnostic Test Radiology reviewed: Reports reviewed Discharge - Discharge Clinical Impression: Sinus congestion, Substance abuse Migraine headache Qualifiers: Migraine type: without aura Status migrainosus presence: without status migrainosus Intractability: not intractable Qualified Code(s): G43.009 - Migraine without aura, not intractable, without status migrainosus Condition: Stable Disposition: HOME, SELF-CARE Instructions: Migraine Headache ([facility]), Nasal Sprays and Drops ([facility]) Additional Instructions: Tylenol and/or Motrin as needed for pain. Nasal spray as prescribed. Outpatient follow-up with primary care physician if not improving in 2 to 3 days. Return to the emergency room for any new or worsening symptoms. Prescriptions: Fluticasone Propionate [Flonase Nasal [place] 50 Mcg/[place] 16 gm] 2 spray NASL DAILY #1 inhaler Forms: Return to Work Referrals: BENEDICTO WOLFF MD [Primary Care Provider] - Follow up as needed
[2019-11-07 21:59] VITALS: BP 96/70
== END 2019-11-07 21:59 | disposition home or self-care (01) ==
LOC: ER 15:01
DX: G43.009 Migraine without aura, not intractable, without status migrainosus (principal); J32.9 Chronic sinusitis, unspecified; R09.81 Nasal congestion; R11.0 Nausea; H53.143 Visual discomfort, bilateral; F11.10 Opioid abuse, uncomplicated; F15.10 Other stimulant abuse, uncomplicated; I10 Essential (primary) hypertension; F17.200 Nicotine dependence, unspecified, uncomplicated; J45.909 Unspecified asthma, uncomplicated; Z88.0 Allergy status to penicillin; Z88.1 Allergy status to other antibiotic agents
CPT/HCPCS: 99285; 96361; 96374; 96375; 36415; 85025; 81025; 80053; 81001; 80307; 70450; J3490; J1200; J2765; J7120

== ENCOUNTER 2020-01-14 09:13 | Emergency (ER) | payer MEDICAID ==
--- NOTE | 2020-01-14 10:54 | RADIOLOGY REPORT (SQ) ---
EXAM DESCRIPTION: CHEST 2 VIEWS IMAGES COMPLETED DATE/TIME: 01/14/2020 10:31 am REASON FOR STUDY: cough COMPARISON: 12/21/2018 EXAM PARAMETERS: NUMBER OF VIEWS: two views TECHNIQUE: Digital Frontal and Lateral radiographic views of the chest acquired. RADIATION DOSE: NA LIMITATIONS: none FINDINGS: LUNGS AND PLEURA: No opacities, masses or pneumothorax. No pleural effusion. MEDIASTINUM AND HILAR STRUCTURES: No masses or contour abnormalities. HEART AND VASCULAR STRUCTURES: Heart normal size. No evidence for failure. BONES: No acute findings. HARDWARE: None in the chest. OTHER: No other significant finding. IMPRESSION: NO ACUTE RADIOGRAPHIC FINDING IN THE CHEST. TECHNICAL DOCUMENTATION: JOB ID: [id number] 2010 [employer]- All Rights Reserved Reading location - IP/workstation name: [email or web address]
[2020-01-14 12:20] VITALS: BP 119/68
--- NOTE | 2020-01-14 12:22 | ER Document Report ---
ED ENT - General Chief Complaint: Sore Throat Stated Complaint: SORE THROAT,SHORT OF BREATH Time Seen by Provider: 01/14/20 09:45 Primary Care Provider: BENEDICTO WOLFF MD [Primary Care Provider] - Follow up as needed Mode of Arrival: Ambulatory Information source: Patient TRAVEL OUTSIDE OF THE [place] IN LAST 30 DAYS: No - HPI Notes: Patient presents complaining of sore throat productive cough fevers chills and sweats with some mild shortness of breath. The symptoms been ongoing for 3 to 4 days. States she does have a history of asthma and that she is currently out of her inhaler. She states that her throat pain is a burning pain. Nothing makes it better or worse. It is constant. It is moderate in intensity. Patient states she has had a temperature of 99.0 at home. No known Covid exposures. - Related Data Allergies/Adverse Reactions: amoxicillin Allergy (Mild, Verified 01/14/20 10:47) cephalexin [From Keflex] Allergy (Unknown, Verified 01/14/20 10:47) rash Penicillins Allergy (Unknown, Verified 01/14/20 10:47) Past Medical History - General Information source: Patient - Social History Smoking Status: Current Every Day Smoker Frequency of alcohol use: None Drug Abuse: None Family History: Arthritis, CAD, COPD, CVA, DM, Hyperlipidemia, Hypertension, Thyroid Disfunction, Other - Depression, anxiety, and schizophrenia Patient has homicidal ideation: No - Past Medical History Cardiac Medical History: Reports: Hx Hypertension Denies: Hx Coronary Artery Disease, Hx DVT, Hx Heart Attack, Hx Pulmonary Embolism Pulmonary Medical History: Reports: Hx Asthma, Hx Bronchitis Denies: Hx COPD, Hx Pneumonia Neurological Medical History: Reports: Hx Migraine. Denies: Hx Seizures Endocrine Medical History: Denies: Hx Diabetes Mellitus Type 1, Hx Diabetes Mellitus Type 2, Hx Hyperthyroidism, Hx Hypothyroidism Renal/ Medical History: Denies: Hx Peritoneal Dialysis GI Medical History: Denies: Hx Cirrhosis, Hx Hepatitis Musculoskeletal Medical History: Reports Hx Arthritis - 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, Denies Hx Gout Skin Medical History: Reports Hx Cellulitis, Denies Hx Eczema, Denies Hx Psoriasis Psychiatric Medical History: Reports: Hx Anxiety, Hx Bipolar Disorder, Hx Depression, Hx Post Traumatic Stress Disorder Infectious Medical History: Reports: Hx MRSA. Denies: Hx Hepatitis Past Surgical History: Reports: Hx Section - x2, Hx Oral Surgery - wisdom teeth, Other - Breast abscess - Immunizations Immunizations up to date: No Hx Diphtheria, Pertussis, Tetanus Vaccination: No Review of Systems - Review of Systems Constitutional: Chills, Fever Cardiovascular: denies: Chest pain, Palpitations Respiratory: Cough, Short of breath -: Yes All other systems reviewed and negative Physical Exam - Vital signs Vitals: Temp Pulse Resp BP Pulse Ox 98.4 F 90 20 133/74 H 100 01/14/20 09:19 01/14/20 09:19 01/14/20 09:19 01/14/20 09:19 01/14/20 09:19 Interpretation: Normal - General General appearance: Appears well, Alert - HEENT Head: Normocephalic, Atraumatic Eyes: Normal Pupils: PERRL Pharynx: Erythema Neck: Normal - Respiratory Respiratory status: No respiratory distress Chest status: Nontender Breath sounds: Normal Chest palpation: Normal - Cardiovascular Rhythm: Regular Heart sounds: Normal auscultation Murmur: No - Abdominal Inspection: Normal Distension: No distension Bowel sounds: Normal Tenderness: Nontender Organomegaly: No organomegaly - Back Back: Normal, Nontender - Extremities General upper extremity: Normal inspection, Nontender, Normal color, Normal ROM, Normal temperature General lower extremity: Normal inspection, Nontender, Normal color, Normal ROM, Normal temperature, Normal weight bearing. No: Katie's sign - Neurological Neuro grossly intact: Yes Cognition: Normal Orientation: AAOx4 [place] Coma Scale Eye Opening: Spontaneous Jt Coma Scale Verbal: Oriented [place] Coma Scale Motor: Obeys Commands Jt Coma Scale Total: 15 Speech: Normal Motor strength normal: LUE, RUE, LLE, RLE Sensory: Normal - Psychological Associated symptoms: Normal affect, Normal mood - Skin Skin Temperature: Warm Skin Moisture: Dry Skin Color: Normal Course - Re-evaluation Re-evalutation: 01/14/20 12:19 The patient was evaluated during a global COVID-19 pandemic and that diagnosis was suspected/considered upon their initial presentation. Their evaluation, treatment and testing was consistent with current guidelines for patients who present with complaints or symptoms and may be related to COVID-19. - Vital Signs Vital signs: Temp Pulse Resp BP Pulse Ox 98.4 F 90 20 133/74 H 100 01/14/20 09:30 01/14/20 09:19 01/14/20 09:19 01/14/20 09:19 01/14/20 09:19 - Diagnostic Test Radiology reviewed: Image reviewed, Reports reviewed Discharge - Discharge Clinical Impression: Person under investigation for COVID-19 Upper respiratory infection Qualifiers: URI type: unspecified URI Qualified Code(s): J06.9 - Acute upper respiratory infection, unspecified Condition: Stable Disposition: HOME, SELF-CARE Instructions: COVID-19 Guidance for Persons Under Investigation, Upper Respiratory Illness ([facility]) Prescriptions: Hydrocodone/Acetaminophen [[place] 5-325 mg Tablet] 1 tab PO Q6 PRN 3 Days #12 tablet PRN Reason: Albuterol Sulfate [Proair HFA Inhalation Aerosol 8.5 gm MDI] 1 - 2 puff IH Q4 PRN #1 mdi PRN Reason: Ondansetron [Zofran Odt 4 mg Tablet] 1 - 2 tab PO Q4H PRN #15 tab.rapdis PRN Reason: For Nausea/Vomiting Forms: Return to Work Referrals: BENEDICTO WOLFF MD [Primary Care Provider] - Follow up in 3-5 days
== END 2020-01-14 12:32 | disposition home or self-care (01) ==
LOC: ER 09:13
DX: J06.9 Acute upper respiratory infection, unspecified (principal); J45.909 Unspecified asthma, uncomplicated; J02.9 Acute pharyngitis, unspecified; R05 Cough; R50.9 Fever, unspecified; R06.02 Shortness of breath; F17.200 Nicotine dependence, unspecified, uncomplicated; I10 Essential (primary) hypertension; Z88.0 Allergy status to penicillin; Z88.1 Allergy status to other antibiotic agents; Z20.828 Contact with and (suspected) exposure to other viral communicable diseases
CPT/HCPCS: 99284; 87070; 87880; 87635; 71046; C9803